=== PATIENT | male | born 1940 | race Caucasian/White ===

== ENCOUNTER 2017-11-15 13:40 | Inpatient (IN) ==
[2017-11-15] MEDS ORDERED: 0.9 % Sodium Chloride 1,000 ML IVC SCH (14:15)
--- NOTE | 2017-11-15 14:23 | Podiatry History & Physical ---
History of Present Illness Chief complaint: Presents to clinic with an open infected diabetic foot ulcer dehisced wound HPI: Mr. Lagunas is a 77 year old male presents today with a dehisced wound on the lateral aspect of his right foot. Necrosis to bone. Cultures revealed MRSA streptococcus and Klebsiella. Patient was initially placed on oral antibiotics as an outpatient. Wound does not respond. Because of his multiple comorbidities and the depths and amount of necrosis the patient will need formal debridement and placement of wound VAC appropriate antibiotics intravenously and long-term wound care post discharge. He will likely need use of wound VAC until we can obtain granular tissue prior to possible grafting if necessary. Patient are both informed of present diagnosis All Systems Reviewed: A 10-system review of systems was performed and is negative for pertinent findings except as documented above in the HPI. Past Med Surg Social Fam HX - Past Medical History Medical history: arthritis, cancer, CHF, coronary artery disease, diabetes, GERD , hyperlipidemia, hypertension, myocardial infarction, RA Psychiatric history: no psych history - Past Surgical History Surgical History: angioplasty/stent, cancer surgery, orthopedic, other, prostatectomy, other - Social History Smoking Status: Never smoker Smokeless Tobacco Status: No Alcohol use: none Drug use: none Medications and Allergies Aspirin [Lo-Dose Aspirin EC] 81 mg PO DAILY 11/07/17 [History] Atenolol [Tenormin] 25 mg PO DAILY 11/07/17 [History] Cholecalciferol (D-3) [Vitamin D] 2,000 unit PO DAILY 11/07/17 [History] Escitalopram [Lexapro] 10 mg PO DAILY 11/07/17 [History] Furosemide [Lasix] 40 mg PO DAILY 11/07/17 [History] HYDROcodone/Acet 5/325 mg [[place] 5-325 mg] 1 tab PO Q6H PRN 5 Days #30 tab 11/07 [Rx] Isosorbide MONOnitrate (24 HR) [Imdur] 30 mg PO DAILY 11/07/17 [History] Lisinopril-HCTZ 20-12.5 [Prinzide 20-12.5] 1 tab PO DAILY 11/07/17 [History] Multivitamin [One Daily Essential] 1 tab PO DAILY 11/07/17 [History] Nitroglycerin [Nitrostat] 0.4 mg SL Q5M PRN 11/07/17 [History] Potassium Gluconate 99 mg PO DAILY 11/07/17 [History] Ranitidine HCl [Heartburn Relief] 150 mg PO BID 11/07/17 [History] Rosuvastatin Calcium [Rosuvastatin Calcium] 10 mg PO HS 11/07/17 [History] Subcutaneous Insulin Pump [T:Slim] 80 unit MC AD 11/07/17 [History] Ticagrelor [Brilinta] 90 mg PO BID 11/07/17 [History] cephALEXin [Keflex] 500 mg PO QID #40 capsule 11/10/17 [Rx] Doxycycline Hyclate [Doxycycline Hyclate] 100 mg PO BID 11/15/17 [History] Linezolid [Linezolid] 600 mg PO BID 11/15/17 [History] Ondansetron ODT [Zofran ODT] 4 mg SL Q4-6H PRN 11/15/17 [History] 3 Allergy/AdvReac Type Severity Reaction Status Date / Time clopidogrel [From Plavix] Allergy Hives Verified 11/10/17 17:03 Iodinated Contrast- Oral and Allergy Hives Verified 11/10/17 17:03 IV Dye meperidine [From Demerol] Allergy Hives Verified 11/10/17 17:03 shellfish derived Allergy Hives Verified 11/10/17 17:03 Physical Exam - Constitutional General appearance: average body habitus, cooperative - Extremities Exam Additional comments: Homans Homans sign negative - Expanded Lower Extremities Exam Foot/Toe exam: Present: deformity (History of fifth toe amputation healed remote. Wound dehiscence is approximately 4 cm in length 1 cm in width and 1 cm in depth with exposure of the fifth metatarsal with obvious necrosis on the distal aspect of the metatarsal head. No evidence of loculated abscess or active purulent drainage.), erythema (Complete wound dehiscence lateral aspect fifth metatarsal right foot with exposure of distal metatarsal head.), swelling - Neurological Exam Additional comments: Patient was complete loss of protective sensation and epicritic sensation 2 point semination light touch and vibration from toes to tibia bilaterally. - Vascular Capillary Refill: less than 3 seconds Results - Labs Result Diagrams: 11/15/17 14:36 Labs: All other labs normal. - Diagnostic results Ankle/Foot x-ray: pending Assessment and Plan (1) Nonhealing surgical wound Current visit: Yes Status: Acute Assessment: #1 nonhealing surgical wound with complete wound dehiscence wound disruption right foot with exposure of bone #2 multiple comorbidities including diabetes with profound neuropathy Plan: #1 removal sutures today debride wound with sterile technique to obtain true dimensions of the wound #2 recommend admission for intravenous antibiotics and formal debridement #3 discussed risks versus benefits as well as alternatives to surgical intervention versus long-term IV antibiotics. We will admit for formal surgical debridement and placement of wound VAC appropriate antibiotics and deep cultures to determine pathogens present within the wound. Previous cultures include Streptococcus MRSA and Klebsiella. Qualifiers: Encounter type: initial encounter Qualified Code(s): T81.89XA - Other complications of procedures, not elsewhere classified, initial encounter
[2017-11-15 14:47] LABS: Basophils # 0.1 K/mcL (0.0-0.2); Basophils % 0.6 %; Eosinophils # 0.2 K/mcL (0.0-0.6); Eosinophils % 1.7 %; Hematocrit 34.8 % (37.5-50.1); Hemoglobin 11.5 g/dL (12.9-16.9); Immature Granulocytes % 0.5 % (0-4); Lymphocytes # 1.9 K/mcL (0.6-4.6); Lymphocytes % 19.5 %; Mean Corpuscular Hemoglobin 30.5 pg (28.0-33.3); Mean Corpuscular Volume 92.3 fL (83.0-100.0); Mean Platelet Volume 9.9 fL (9.4-12.4); Monocytes # 0.8 K/mcL (0.0-1.3); Monocytes % 7.6 %; Neutrophils # 6.9 K/mcL (1.6-8.9); Platelet Count 383 K/mcL (140-400); Red Blood Count 3.77 M/mcL (4.19-5.50); Red Cell Distribution Width 12.3 % (11.5-14.5); Segmented Neutrophils % 70.1 %
[2017-11-15] MEDS ORDERED: Vancomycin 1,250 MG in D5% in Water 250 ML IVPB ONE (15:00)
[2017-11-15 15:38] LABS: INR 1.4; Prothrombin Time 14.9 Seconds (9.4-12.1)
--- NOTE | 2017-11-15 16:20 | Internal Medicine Consult Note ---
Date of Encounter: 11/16/17 Time of Encounter: 15:02 - Assessment and Plan (1) Osteomyelitis Current Visit: Yes Status: Acute Assessment and plan: Podiatry plans surgery Continue Vanc and Zosyn Wound cultures from 11/07/17 surgery grew out Grp B strep and MRSA Contact precautions Qualifiers: Osteomyelitis type: other acute Osteomyelitis location: foot Laterality: right Qualified Code(s): M86.171 - Other acute osteomyelitis, right ankle and foot (2) CAD (coronary artery disease) Current Visit: No Status: Chronic Assessment and plan: Continue home medications: AntiPTL, BB, statin Qualifiers: Coronary Disease-Associated Artery/Lesion type: [place] artery [place] vs. transplanted heart: [place] heart Associated angina: without angina Qualified Code(s): I25.10 - Atherosclerotic heart disease of [place] coronary artery without angina pectoris (3) Dyslipidemia Current Visit: Yes Status: Chronic Assessment and plan: Continue statin Code(s): E78.5 - Hyperlipidemia, unspecified (4) Essential hypertension Current Visit: Yes Status: Acute Assessment and plan: Continue home medications and add PRN Hydralazine while NPO Internal Medicine - CN: HPI - Data of Consult Consult date: 11/15/17 Requesting Physician: Derick Yao, - Consult Narrative Reason for consult: Medical management History of present illness: 77 yr old diabetic patient admitted with suspected osteomyelitis of the right foot. He had a recent rt. MT bunionectomy and excision of a diabetic ulcer on the right foot. Wound cultures grew out MRSA and GB strep. On 11/10/2017 she waas seen for cellulitis of right foot and given Keflex and sent home. She was admitted by Dr. Yao for surgery on the right foot. The hospitialist service was consulted for medical mgt. His comorbid medical conditions are DM-2 with a personal insulin pump, HTN, RA dyslipidemia, CAD s/p STEMI and subsequent stent placement. Past Med Surg Social Fam HX - Past Medical History Medical history: arthritis, cancer, CHF, coronary artery disease, diabetes, GERD , hyperlipidemia, hypertension, myocardial infarction, RA Psychiatric history: no psych history - Past Surgical History Surgical History: angioplasty/stent, cancer surgery, orthopedic, other, prostatectomy, other - Social History Smoking Status: Never smoker Smokeless Tobacco Status: No Alcohol use: none Drug use: none - Constitutional Constitutional: no chills, no fatigue, no fever(s), no falls, no lethargy, no night sweats - EENT Eyes: no blurry vision, no diplopia, no dry eye Ears: no as per HPI, no ear discharge, no tinnitus - Cardiovascular Cardiovascular ROS IM: no chest pain, no diaphoresis, no dyspnea, no edema, no syncope - Gastrointestinal Gastrointestinal: no abdominal pain, no coffee ground emesis, no cramping, no dyspepsia, no hematemesis, no nausea, no vomiting - Musculoskeletal Musculoskeletal ROS IM: joint swelling, numbness, tingling - Integumentary Integumentary IM: non-healing lesions, skin ulcer, no jaundice - Neurological Neurological ROS: numbness, no dizziness, no focal weakness, no vertigo, no weakness - Psychiatric Psychiatric: no behavioral changes, no confusion, no hallucinations, no homicidal ideation, no mood swings - Hematologic/Lymphatic Hematologic/Lymphatic: no easy bleeding, no easy bruising Internal Medicine - CN: Meds Aspirin [Lo-Dose Aspirin EC] 81 mg PO DAILY 11/07/17 [History] Atenolol [Tenormin] 25 mg PO DAILY 11/07/17 [History] Cholecalciferol (D-3) [Vitamin D] 2,000 unit PO DAILY 11/07/17 [History] Escitalopram [Lexapro] 10 mg PO DAILY 11/07/17 [History] Furosemide [Lasix] 40 mg PO DAILY 11/07/17 [History] HYDROcodone/Acet 5/325 mg [[place] 5-325 mg] 1 tab PO Q6H PRN 5 Days #30 tab 11/07 [Rx] Isosorbide MONOnitrate (24 HR) [Imdur] 30 mg PO DAILY 11/07/17 [History] Lisinopril-HCTZ 20-12.5 [Prinzide 20-12.5] 1 tab PO DAILY 11/07/17 [History] Multivitamin [One Daily Essential] 1 tab PO DAILY 11/07/17 [History] Nitroglycerin [Nitrostat] 0.4 mg SL Q5M PRN 11/07/17 [History] Potassium Gluconate 99 mg PO DAILY 11/07/17 [History] Ranitidine HCl [Heartburn Relief] 150 mg PO BID 11/07/17 [History] Rosuvastatin Calcium [Rosuvastatin Calcium] 10 mg PO HS 11/07/17 [History] Subcutaneous Insulin Pump [T:Slim] 80 unit MC AD 11/07/17 [History] Ticagrelor [Brilinta] 90 mg PO BID 11/07/17 [History] cephALEXin [Keflex] 500 mg PO QID #40 capsule 11/10/17 [Rx] Doxycycline Hyclate [Doxycycline Hyclate] 100 mg PO BID 11/15/17 [History] Linezolid [Linezolid] 600 mg PO BID 11/15/17 [History] Ondansetron ODT [Zofran ODT] 4 mg SL Q4-6H PRN 11/15/17 [History] 3 Allergy/AdvReac Type Severity Reaction Status Date / Time clopidogrel [From Plavix] Allergy Hives Verified 11/10/17 17:03 Iodinated Contrast- Oral and Allergy Hives Verified 11/10/17 17:03 IV Dye meperidine [From Demerol] Allergy Hives Verified 11/10/17 17:03 shellfish derived Allergy Hives Verified 11/10/17 17:03 Internal Medicine - CN: Exam - Constitutional Vitals: Temp Pulse Resp BP Pulse Ox 98 F 68 16 101/68 97 11/15/17 14:18 11/15/17 14:18 11/15/17 14:18 11/15/17 14:18 11/15/17 14:18 General appearance IM: Present: A&O X 3, pleasant, no acute distress - Head Head exam: Present: atraumatic, normocephalic - Expanded Head Exam Head exam expanded IM: Absent: Rosas's sign, general tenderness, raccoon eyes - Eye Eye exam: Present: EOMI, PERRL, conjuntiva pink, sclera anicteric Pupils: Present: PERRL - Cardiovascular Cardiovascular exam IM: Present: RRR, +S1, +S2. Absent: JVD - GI/Abdominal GI/Abdominal exam IM: Present: normal bowel sounds, soft, no peritoneal signs. Absent: diminished bowel sounds, rigid - Neurological Exam Neurological exam: Present: CN II-XII intact, oriented X3, no focal deficits. Absent: motor sensory deficit - Skin Skin exam IM: Present: dry, warm Internal Medicine - CN: Reslt - Labs CBC & Chem 7: 11/15/17 14:36 11/15/17 14:36 Labs: Short CBC 11/15/17 Range/Units 14:36 WBC 9.9 (4.3-11.1) K/mcL Hgb 11.5 L (12.9-16.9) g/dL Hct 34.8 L (37.5-50.1) % Plt Count 383 (140-400) K/mcL Neutrophils # 6.9 (1.6-8.9) K/mcL Consult Discharge Plan - Plan Referrals: Chris Garcia DO [Primary Care Provider] -
[2017-11-15] MEDS ORDERED: Nitroglycerin 0.4 MG TAB.SUBL SL PRN (16:44)
[2017-11-15] MEDS ORDERED: Ondansetron ODT 4 MG TAB.RAPDIS SL PRN (16:44)
[2017-11-15] MEDS ORDERED: [UNRECOGNIZED DRUG - SUPPLY] MC SCH (16:45)
[2017-11-15] MEDS ORDERED: Vancomycin 1,250 MG in D5% in Water 250 ML IVPB SCH (17:00)
[2017-11-15 17:48] LABS: BUN/Creatinine Ratio 21 (6-26); Blood Urea Nitrogen 26 mg/dL (8-23); C-Reactive Protein 61 mg/L (Less than 10); Calcium 9.4 mg/dL (8.6-10.3); Carbon Dioxide 24 mEq/L (23-29); Chloride 104 mEq/L (98-107); Glucose 138 mg/dL (70-105); Osmolality,Calculated 293 (280-300); Potassium 3.9 mEq/L (3.5-5.1); Sodium 138 mEq/L (136-145); eGFR For African Americans > 60 (> 60); eGFR For Non-African Americans 56 (> 60)
[2017-11-15] MEDS ORDERED: Vancomycin 1,500 MG in D5% in Water 250 ML IVPB SCH (19:00)
[2017-11-15] MEDS: Famotidine 20 MG TABLET PO SCH (20:31)
[2017-11-15] MEDS: *HR* Ticagrelor 90 MG TABLET PO SCH (20:31)
[2017-11-15] MEDS: Vancomycin 1,500 MG in D5% in Water 250 ML IVPB SCH (21:08)
[2017-11-15] MEDS: *HR* HYDROcodone/Acet 5/325 mg TABLET PO PRN (22:27)
--- NOTE | 2017-11-16 07:20 | Anesthesia Evaluation PreOp ---
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: Other (Parkinson's) Other Medical History: Diabetes Type II Anesthesia History: No Prior Anesthetic Complications Alcohol Use: none Drug use: none Medications and Allergies Aspirin [Lo-Dose Aspirin EC] 81 mg PO DAILY 11/07/17 [History] Atenolol [Tenormin] 25 mg PO DAILY 11/07/17 [History] Cholecalciferol (D-3) [Vitamin D] 2,000 unit PO DAILY 11/07/17 [History] Escitalopram [Lexapro] 10 mg PO DAILY 11/07/17 [History] Furosemide [Lasix] 40 mg PO DAILY 11/07/17 [History] HYDROcodone/Acet 5/325 mg [[place] 5-325 mg] 1 tab PO Q6H PRN 5 Days #30 tab 11/07 [Rx] Isosorbide MONOnitrate (24 HR) [Imdur] 30 mg PO DAILY 11/07/17 [History] Lisinopril-HCTZ 20-12.5 [Prinzide 20-12.5] 1 tab PO DAILY 11/07/17 [History] Multivitamin [One Daily Essential] 1 tab PO DAILY 11/07/17 [History] Nitroglycerin [Nitrostat] 0.4 mg SL Q5M PRN 11/07/17 [History] Potassium Gluconate 99 mg PO DAILY 11/07/17 [History] Ranitidine HCl [Heartburn Relief] 150 mg PO BID 11/07/17 [History] Rosuvastatin Calcium [Rosuvastatin Calcium] 10 mg PO HS 11/07/17 [History] Subcutaneous Insulin Pump [T:Slim] 80 unit MC AD 11/07/17 [History] Ticagrelor [Brilinta] 90 mg PO BID 11/07/17 [History] cephALEXin [Keflex] 500 mg PO QID #40 capsule 11/10/17 [Rx] Doxycycline Hyclate [Doxycycline Hyclate] 100 mg PO BID 11/15/17 [History] Linezolid [Linezolid] 600 mg PO BID 11/15/17 [History] Ondansetron ODT [Zofran ODT] 4 mg SL Q4-6H PRN 11/15/17 [History] 3 Allergy/AdvReac Type Severity Reaction Status Date / Time clopidogrel [From Plavix] Allergy Hives Verified 11/10/17 17:03 Iodinated Contrast- Oral and Allergy Hives Verified 11/10/17 17:03 IV Dye meperidine [From Demerol] Allergy Hives Verified 11/10/17 17:03 shellfish derived Allergy Hives Verified 11/10/17 17:03 - Meds/Allergy Pre-op Review Medications Reviewed: Yes Allergies Reviewed: Yes Beta Blockers on Current Med List: Yes (Atenolol today 0900) Anesthesia Results - Labs 11/15/17 14:36 11/15/17 14:36 Laboratory Tests 11/15/17 11/15/17 14:36 14:36 Hgb 11.5 L Hct 34.8 L Plt Count 383 Sodium 138 Potassium 3.9 BUN 26 H Creatinine 1.25 - Imaging EKG: report reviewed (SR) Additional studies: EF 55% from Cath Report Triple Vessel Disease Anesthesia Exam O2 Sat Height 2.08 m Weight 86.183 kg O2 Sat by Pulse Oximetry 96 O2 Sat by Pulse Oximetry 97 O2 Sat by Pulse Oximetry 96 O2 Sat by Pulse Oximetry 98 O2 Sat by Pulse Oximetry 97 Vital Signs Temp Pulse Resp BP Pulse Ox 98 F 68 16 101/68 97 11/15/17 14:18 11/15/17 14:18 11/15/17 14:18 11/15/17 14:18 11/15/17 14:18 Height: 6'10 Weight: 190 lbs NPO (# of Hours): MN Pain Scale: 0 - HEENT Pupil (Motor): Pupils equal, EOMI Mallampati: III Oral Opening: Greater than 3 - [employer] WORKER LOC: Oriented [employer] WORKER Motor: Normal RUE, Normal LUE, Normal RLE, Normal LLE, Normal Face [employer] WORKER Sensory: Normal: RUE, LUE, LLE, Face, Deficit: RLE (Neuropathy) - Cardiac Rhythm: Regular Murmur: None JVD: No Carotid Bruit: No - Pulmonary Breath Sounds: bilateral Clear Respiratory Effort: Symmetrical Anesthesia Assess/Plan ASA Score: 3 (CAD MS HTN DM) Modified [place] Scale for Level of Consciousness: Cooperative, oriented, and tranquil Anesthetic Plan: MAC Monitoring Plan: Standard Monitors Recovery Plan: Other (Discussed MAC, possible GA, agrees to proceed)
[2017-11-16] MEDS ORDERED: Bupivacaine/Clonidine Syringe 1 EACH SYRINGE ONE (07:40)
[2017-11-16] MEDS: *HR* Ticagrelor 90 MG TABLET PO SCH ×2 (07:51→19:50)
[2017-11-16] MEDS: Famotidine 20 MG TABLET PO SCH ×2 (07:52→16:07)
[2017-11-16] MEDS ORDERED: Lidocaine -MPF 2% 2 ML VIAL ONE ×2 (08:50→09:07)
[2017-11-16] MEDS ORDERED: *HR* Propofol 200 MG/20 ML VIAL IVP ONE (08:58)
[2017-11-16] MEDS ORDERED: Cholecalciferol (D-3) 1,000 UNIT TABLET PO SCH (09:00)
[2017-11-16] MEDS ORDERED: Isosorbide MONOnitrate (24 HR) 30 MG TAB.ER.24H PO SCH (09:00)
[2017-11-16] MEDS ORDERED: Multivit/Ca/Min/Fe/FA 1 TAB TABLET PO SCH (09:00)
[2017-11-16] MEDS ORDERED: (Potassium Gluconate [Potassium Gluconate] 99 MG) PO SCH (09:00)
[2017-11-16] MEDS ORDERED: Lisinopril-HCTZ 20-12.5mg TABLET PO SCH (09:00)
[2017-11-16] MEDS ORDERED: Furosemide 40 MG TABLET PO SCH (09:00)
[2017-11-16] MEDS ORDERED: Aspirin Enteric Coated 81 MG Tablet PO SCH (09:00)
--- NOTE | 2017-11-16 09:49 | Orthopedic Operative Note ---
Date of procedure: 11/16/17 Pre-op diagnosis: Osteomyelitis/nonhealing wound ulceration right foot Post-op diagnosis: same Procedure: 11/16/17 09:41 #1: Incision of bone cortex for osteomyelitis #2 debridement of wound #3 application of graft jacket and wound VAC with use of PRP Implants: #1: Graft jacket Anesthesia: MAC, local Local Anesthetics: 0.25% Sensorcaine HCL SubQ (cc) Surgeon: Derick Yao Was there an entry level assistant manager present: No Estimated blood loss (cc): 5 Tourniquet Time (Minutes): 0 Specimen: Metatarsal for culture Condition: stable Disposition: floor Procedure in Detail: 11/16/17 09:43 Detail summary of procedure: Patient brought to surgical suite. A sign in procedure performed. Patient transferred to the surgical table and positioned properly safely securely. Right foot and leg elevated on foam block. Anesthetic timeout taken. No tourniquet used. Right ankle prepped with alcohol 3 times ankle block carried out without difficulty. Right foot prepped and draped in usual sterile manner. Surgical timeout taken. Wound was inspected. Wound of the 6 cm in length 2 cm in width 0.5 cm in depth. Necrotic skin edge. Linear incision was made in the lateral aspect of proximal fifth metatarsal brought distally to the area of dehiscence/wound a fresh skin edge was obtained by incising the tissue 2 mm away from the skin edge on the dorsal/medial aspect of the wound meeting at the distal aspect of the fifth metatarsal and proximal another 1/2 cm distally to the aspect of the distal first metatarsal the plantar lateral incision was also made the same following the edges of the necrotic wound. The incision was also approximate 2 mm away from the necrotic skin edge. These 2 incisions met distally to the fifth metatarsal. All necrotic tissue was then debrided. Bone was bowed. As found to be of abnormal color texture density. A fresh 15 scalpel blade was then used to make a deeper incision proximally over the proximal fifth metatarsal down the bone. Periosteum was reflected and elected with the Milian elevator [place] retractors were used to protect the soft tissue using a TPS sagittal saw the bone was divided at the level of clinically evident healthy bone was of normal color texture density. At the osteotomy was complete was reviewed from lateral to medial distal dorsal to proximal plantar the distal one half of the fifth metatarsal was resected and sent for culture. Remaining tissue was not necrotic. All suspicious nonviable tissue was debrided accordingly with a cup and Metzenbaum. Remainder of the tissue was then debrided with ultrasonic Misonix debrider. The wound was flushed with copious sterile saline again. By no bone chips or debris the proximal wound was reapproximated with 3-0 Prolene without tension. The distal wound was also reapproximated with 3-0 Prolene. The remaining wound could not be closed primarily. The wound was sprayed with PRP and a graft jacket was applied in room anchored with interrupted sutures of 3-0 chromic. That point a wound VAC was applied over Adaptic which was placed over the graft. Wound VAC was found on properly. Patient tolerated the procedure and the anesthesia well. Estimated blood loss was less than 5 mL complications none. Patient will be continued on appropriate intravenous antibiotics. Continue to offload the wound.
[2017-11-16] MEDS: Vancomycin 1,500 MG in D5% in Water 250 ML IVPB SCH ×2 (10:10→22:15)
[2017-11-16] MEDS: *HR* HYDROcodone/Acet 5/325 mg TABLET PO PRN ×2 (10:11→19:49)
[2017-11-16] MEDS ORDERED: Ondansetron ODT 4 MG TAB.RAPDIS SL PRN (10:23)
[2017-11-16] MEDS ORDERED: Vancomycin 1,250 MG in D5% in Water 250 ML IVPB ONE (10:23)
[2017-11-16] MEDS ORDERED: [UNRECOGNIZED DRUG - SUPPLY] MC SCH (10:23)
[2017-11-16] MEDS ORDERED: Nitroglycerin 0.4 MG TAB.SUBL SL PRN (10:23)
[2017-11-16] MEDS ORDERED: 0.9 % Sodium Chloride 1,000 ML IVC SCH (10:23)
--- NOTE | 2017-11-16 11:31 | Anesthesia Evaluation Post Op ---
Date of Encounter: 11/16/17 Time of Encounter: 09:45 - Vital Signs Vital Signs: Vital Signs/O2 Sat/Glucose, Most Current Temp Pulse Resp BP Pulse Ox 11/16/17 10:41 97.7 F 59 15 134/54 100 11/16/17 08:01 96 - Lungs Lungs: Clear Ascult./Percussion - Airway Airway: Non-obstructed - Cardiovascular Regular Rate - Mental Status Mental Status: Alert & Oriented, Answers Appropriately - Pain Pain Scale: 0 - Nausea Vomiting Nausea Vomiting: Not Present - Hydration Hydration: NPO - Discharge PostOp Status: Transfer Patient to floor
[2017-11-16] MEDS ORDERED: D5% in Water 1,000 ML IVC PRN (11:48)
[2017-11-16] MEDS ORDERED: *HR* Dextrose 50 % in Water (Syg) 50 ML SYRINGE IVP PRN (11:48)
[2017-11-16] MEDS ORDERED: Dextrose Gel 15 GM/37.5 ML TUBE PO PRN ×2 (11:48)
--- NOTE | 2017-11-16 11:59 | Internal Med Progress Note ---
Date of Encounter: 11/16/17 Time of Encounter: 11:55 - Assessment and plan (1) Osteomyelitis Current Visit: Yes Status: Acute Assessment and plan: Underwent surgery today with incision and debridement of wound and application of wound VAC. Follow podiatry recommendations. Continue current antibiotics. Follow culture results. Moderate risk for complications. Qualifiers: Osteomyelitis type: other acute Osteomyelitis location: foot Laterality: right Qualified Code(s): M86.171 - Other acute osteomyelitis, right ankle and foot (2) CAD (coronary artery disease) Current Visit: Yes Status: Chronic Assessment and plan: No chest pain at this time. Continue current medications including aspirin, Brillinta, atenolol and Imdur Qualifiers: Coronary Disease-Associated Artery/Lesion type: [place] artery [place] vs. transplanted heart: [place] heart Associated angina: without angina Qualified Code(s): I25.10 - Atherosclerotic heart disease of [place] coronary artery without angina pectoris (3) Diabetes mellitus Current Visit: Yes Status: Chronic Assessment and plan: Patient on sliding scale coverage and monitor blood sugars closely. Diabetes diet Qualifiers: Diabetes mellitus type: type 2 Diabetes mellitus complication status: without complication Diabetes mellitus residential insulin use: with residential use Qualified Code(s): E11.9 - Type 2 diabetes mellitus without complications ; Z79.4 - skilled nursing (current) use of insulin; Z79.4 - skilled nursing (current) use of insulin; Z79.4 - manager intermediate (current) use of insulin; Z79.4 - skilled nursing ( current) use of insulin (4) Dyslipidemia Current Visit: Yes Status: Chronic Assessment and plan: Continue Crestor (5) Essential hypertension Current Visit: Yes Status: Chronic Assessment and plan: Well-controlled. Continue home medications (6) DVT prophylaxis Current Visit: Yes Status: Acute Assessment and plan: Place patient on subcutaneous heparin - Subjective Interval history: Patient is awake and alert. He underwent surgery earlier this morning. Recovering well. Pain is well controlled in his right foot. No new complaints at this time. No chest pain or shortness of breath. - Constitutional Vitals: Temp Pulse Resp BP Pulse Ox 97.7 F 59 15 134/54 100 11/16/17 10:41 11/16/17 10:41 11/16/17 10:41 11/16/17 10:41 11/16/17 10:41 General appearance: Present: A&O X 3, pleasant, no acute distress, answers questions appropriately - Respiratory Respiratory exam: Present: CTAB. Absent: accessory muscle use, rales, rhonchi, wheezes - Cardiovascular Cardiovascular exam: Present: RRR, +S1, +S2. Absent: diastolic murmur, gallop, rubs, systolic murmur - GI/Abdominal GI/Abdominal exam: Present: normal bowel sounds, soft, no peritoneal signs. Absent: distended, tenderness - Extremities Exam Extremities exam: Present: warm, radial pulses palpable and symmetrical. Absent : calf tenderness, cyanotic, pedal edema Additional comments: Right foot currently bandaged. - Neurological Exam Neurological exam: Present: oriented X3, no focal deficits. Absent: facial droop, speech deficit Internal Medicine: Result - Labs CBC & Chem 7: 11/15/17 14:36 11/15/17 14:36 Labs: Short CBC 11/15/17 Range/Units 14:36 WBC 9.9 (4.3-11.1) K/mcL Hgb 11.5 L (12.9-16.9) g/dL Hct 34.8 L (37.5-50.1) % Plt Count 383 (140-400) K/mcL Neutrophils # 6.9 (1.6-8.9) K/mcL BMP 11/15/17 14:36 Sodium 138 Potassium 3.9 Chloride 104 Carbon Dioxide 24 BUN 26 H Creatinine 1.25 Glucose 138 H Calcium 9.4 - ABG Interpretation ABG results: PT/INR, D-dimer PT 14.9 Seconds (9.4-12.1) H 11/15/17 14:36 - Impressions Impressions Foot X-Ray 11/15/17 14:01 IMPRESSION: 1. There is a soft tissue ulceration noted near the 5th metatarsal head, along the plantar and lateral aspect of the right foot. There is no evidence of osteomyelitis at this time. 2. No evidence of an acute fracture. D/ / 11/15/2017 21:45:09 Asa Bowles MD / Frida Mcgraw Interpreting Provider: Asa Bowles MD - VTE Documentation of Mechanical Device: Intermittent pneumatic compression device Consult Discharge Plan - Plan Referrals: Chris Garcia DO [Primary Care Provider] -
[2017-11-16 14:18] LABS: BUN/Creatinine Ratio 17 (6-26); Blood Urea Nitrogen 20 mg/dL (8-23); eGFR For African Americans > 60 (> 60); eGFR For Non-African Americans 58 (> 60)
[2017-11-16] MEDS: *HR* Heparin 5,000 UNIT/ML VIAL SQ SCH (16:07)
[2017-11-16] MEDS: [UNRECOGNIZED DRUG - SUPPLY] MC SCH (16:15)
[2017-11-16] MEDS: Insulin LISPRO 300 UNITS/3 ML VIAL SQ SCH ×2 (16:19→22:47)
[2017-11-17] MEDS: *HR* Heparin 5,000 UNIT/ML VIAL SQ SCH ×2 (04:45→17:37)
[2017-11-17 05:27] LABS: Basophils # 0.1 K/mcL (0.0-0.2); Basophils % 0.8 %; Eosinophils # 0.2 K/mcL (0.0-0.6); Eosinophils % 2.4 %; Hematocrit 30.1 % (37.5-50.1); Hemoglobin 10.1 g/dL (12.9-16.9); Immature Granulocytes % 0.4 % (0-4); Immature Platelets 2.6 % (1.1-6.1); Lymphocytes # 2.3 K/mcL (0.6-4.6); Mean Corpuscular HGB Conc 33.6 g/dL (31.6-35.5); Mean Corpuscular Hemoglobin 30.9 pg (28.0-33.3); Mean Platelet Volume 10.2 fL (9.4-12.4); Monocytes # 0.7 K/mcL (0.0-1.3); Monocytes % 9.3 %; Neutrophils # 4.6 K/mcL (1.6-8.9); Platelet Count 346 K/mcL (140-400); Red Blood Count 3.27 M/mcL (4.19-5.50); Red Cell Distribution Width 12.1 % (11.5-14.5); Segmented Neutrophils % 58.1 %
[2017-11-17] MEDS: Lisinopril-HCTZ 20-12.5mg TABLET PO SCH (07:34)
[2017-11-17] MEDS: Famotidine 20 MG TABLET PO SCH ×2 (07:35→16:52)
[2017-11-17] MEDS: Aspirin Enteric Coated 81 MG Tablet PO SCH (07:35)
[2017-11-17] MEDS: Isosorbide MONOnitrate (24 HR) 30 MG TAB.ER.24H PO SCH (07:35)
[2017-11-17] MEDS: *HR* Ticagrelor 90 MG TABLET PO SCH ×2 (07:35→21:21)
[2017-11-17] MEDS: Cholecalciferol (D-3) 1,000 UNIT TABLET PO SCH (07:35)
[2017-11-17] MEDS: Multivit/Ca/Min/Fe/FA 1 TAB TABLET PO SCH (07:35)
[2017-11-17] MEDS: Furosemide 40 MG TABLET PO SCH (07:35)
[2017-11-17] MEDS: Insulin LISPRO 300 UNITS/3 ML VIAL SQ SCH ×4 (07:39→21:23)
[2017-11-17] MEDS ORDERED: (Potassium Gluconate [Potassium Gluconate] 99 MG) PO SCH (09:00)
[2017-11-17] MEDS: *HR* HYDROcodone/Acet 5/325 mg TABLET PO PRN ×2 (10:22→16:52)
[2017-11-17] MEDS: Vancomycin 1,500 MG in D5% in Water 250 ML IVPB SCH (10:22)
[2017-11-17] MEDS: Insulin DETEMIR 100 UNIT/ML X5UNITS SQ SCH (11:43)
--- NOTE | 2017-11-17 13:47 | Internal Med Progress Note ---
Date of Encounter: 11/17/17 Time of Encounter: 10:35 - Assessment and plan (1) Osteomyelitis Current Visit: Yes Status: Acute Assessment and plan: Patient being treated with IV antibiotics. Will continue treatment. Status post surgery and debridement yesterday. Awaiting culture results. So far no growth. Qualifiers: Osteomyelitis type: other acute Osteomyelitis location: foot Laterality: right Qualified Code(s): M86.171 - Other acute osteomyelitis, right ankle and foot (2) CAD (coronary artery disease) Current Visit: Yes Status: Chronic Assessment and plan: Continue aspirin, Tenormin, statin and brillinta Qualifiers: Coronary Disease-Associated Artery/Lesion type: [place] artery [place] vs. transplanted heart: [place] heart Associated angina: without angina Qualified Code(s): I25.10 - Atherosclerotic heart disease of [place] coronary artery without angina pectoris (3) Diabetes mellitus Current Visit: Yes Status: Chronic Assessment and plan: Blood sugars were elevated yesterday. Much better this morning. We will continue to monitor. If remains persistently elevated, will place patient on long-acting insulin and addition to sliding scale coverage. Patient delivering insulin with his pump. 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 (5) Essential hypertension Current Visit: Yes Status: Chronic Assessment and plan: Well-controlled. (6) DVT prophylaxis Current Visit: Yes Status: Acute Assessment and plan: On subcutaneous heparin - Subjective Interval history: Patient is lying in bed. Appears comfortable. Pain in right foot is well controlled. No new complaints at this time. No chest pain or shortness of breath. - Constitutional Vitals: Temp Pulse Resp BP Pulse Ox 98.7 F 61 16 97/49 98 11/17/17 10:42 11/17/17 10:42 11/17/17 10:42 11/17/17 10:42 11/17/17 10:42 General appearance: Present: A&O X 3, pleasant, no acute distress, answers questions appropriately - Neck Neck exam general surgery: Present: supple, trachea midline. Absent: lymphadenopathy - Respiratory Respiratory exam: Present: CTAB. Absent: accessory muscle use, rales, rhonchi, wheezes - Cardiovascular Cardiovascular exam: Present: RRR, +S1, +S2. Absent: diastolic murmur, gallop, rubs, systolic murmur - GI/Abdominal GI/Abdominal exam: Present: normal bowel sounds, soft, no peritoneal signs. Absent: distended, tenderness - Extremities Exam Extremities exam: Present: warm, radial pulses palpable and symmetrical. Absent : calf tenderness, cyanotic, pedal edema Additional comments: Right foot bandaged with wound VAC in place. - Neurological Exam Neurological exam: Present: alert, CN II-XII intact, no focal deficits. Absent : facial droop, speech deficit - Skin Skin exam: Present: dry, intact Internal Medicine: Result - Labs CBC & Chem 7: 11/17/17 04:40 11/16/17 13:50 Labs: Short CBC 11/17/17 Range/Units 04:40 WBC 7.9 (4.3-11.1) K/mcL Hgb 10.1 L (12.9-16.9) g/dL Hct 30.1 L (37.5-50.1) % Plt Count 346 (140-400) K/mcL Neutrophils # 4.6 (1.6-8.9) K/mcL BMP 11/16/17 13:50 BUN 20 Creatinine 1.20 - ABG Interpretation ABG results: PT/INR, D-dimer PT 14.9 Seconds (9.4-12.1) H 11/15/17 14:36 - VTE Documentation of Mechanical Device: Intermittent pneumatic compression device Consult Discharge Plan - Plan Referrals: Chris Garcia DO [Primary Care Provider] -
[2017-11-17] MEDS: [UNRECOGNIZED DRUG - SUPPLY] MC SCH (16:53)
[2017-11-18] MEDS: *HR* Heparin 5,000 UNIT/ML VIAL SQ SCH ×2 (05:27→18:38)
[2017-11-18 05:50] LABS: Hematocrit 31.2 % (37.5-50.1); Hemoglobin 10.4 g/dL (12.9-16.9)
[2017-11-18 06:11] LABS: BUN/Creatinine Ratio 14 (6-26); Blood Urea Nitrogen 15 mg/dL (8-23); eGFR For African Americans > 60 (> 60); eGFR For Non-African Americans > 60 (> 60)
[2017-11-18] MEDS: *HR* Ticagrelor 90 MG TABLET PO SCH ×2 (08:21→20:46)
[2017-11-18] MEDS: Cholecalciferol (D-3) 1,000 UNIT TABLET PO SCH (08:21)
[2017-11-18] MEDS: Furosemide 40 MG TABLET PO SCH (08:21)
[2017-11-18] MEDS: Aspirin Enteric Coated 81 MG Tablet PO SCH (08:21)
[2017-11-18] MEDS: Lisinopril-HCTZ 20-12.5mg TABLET PO SCH (08:21)
[2017-11-18] MEDS: Isosorbide MONOnitrate (24 HR) 30 MG TAB.ER.24H PO SCH (08:22)
[2017-11-18] MEDS: Multivit/Ca/Min/Fe/FA 1 TAB TABLET PO SCH (08:22)
[2017-11-18] MEDS: Famotidine 20 MG TABLET PO SCH ×2 (08:22→17:18)
[2017-11-18] MEDS: Insulin LISPRO 300 UNITS/3 ML VIAL SQ SCH ×4 (08:28→17:18)
[2017-11-18] MEDS: Insulin DETEMIR 100 UNIT/ML X5UNITS SQ SCH ×2 (09:20→21:00)
[2017-11-18] MEDS ORDERED: Vancomycin 1,750 MG in D5% in Water 500 ML IVPB SCH (11:00)
--- NOTE | 2017-11-18 13:02 | Internal Med Progress Note ---
Date of Encounter: 11/18/17 Time of Encounter: 09:20 - Assessment and plan (1) Osteomyelitis Current Visit: Yes Status: Acute Assessment and plan: Status post-debridement of wound and application of wound VAC. Continue current antibiotics. Wound culture is negative for any bacteria at this time. Follow recommendations from podiatry Qualifiers: Osteomyelitis type: other acute Osteomyelitis location: foot Laterality: right Qualified Code(s): M86.171 - Other acute osteomyelitis, right ankle and foot (2) CAD (coronary artery disease) Current Visit: Yes Status: Chronic Assessment and plan: Continue aspirin, atenolol, Crestor and brillinta Qualifiers: Coronary Disease-Associated Artery/Lesion type: [place] artery [place] vs. transplanted heart: [place] heart Associated angina: without angina Qualified Code(s): I25.10 - Atherosclerotic heart disease of [place] coronary artery without angina pectoris (3) Diabetes mellitus Current Visit: Yes Status: Chronic Assessment and plan: Blood sugars remain elevated. We will increase his Levemir dosage to 10 units twice daily. We will also had additional nutritional coverage. Continue to monitor blood sugars closely. 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 (5) Essential hypertension Current Visit: Yes Status: Chronic Assessment and plan: Controlled. Continue current medications (6) DVT prophylaxis Current Visit: Yes Status: Acute Assessment and plan: On subcutaneous heparin - Subjective Interval history: Patient is awake and alert. No new complaints at this time. Pain in his right foot is well controlled. - Constitutional Vitals: Temp Pulse Resp BP Pulse Ox 98.8 F 62 16 116/61 97 11/18/17 11:33 11/18/17 11:33 11/18/17 11:33 11/18/17 11:33 11/18/17 11:33 General appearance: Present: A&O X 3, pleasant, no acute distress, answers questions appropriately - Neck Neck exam general surgery: Present: supple, trachea midline. Absent: lymphadenopathy - Respiratory Respiratory exam: Present: CTAB. Absent: accessory muscle use, rales, rhonchi, wheezes - Cardiovascular Cardiovascular exam: Present: RRR, +S1, +S2. Absent: diastolic murmur, gallop, rubs, systolic murmur - GI/Abdominal GI/Abdominal exam: Present: normal bowel sounds, soft, no peritoneal signs. Absent: distended, tenderness - Extremities Exam Extremities exam: Present: warm, radial pulses palpable and symmetrical. Absent : calf tenderness, cyanotic, pedal edema Additional comments: Right foot bandaged. Wound VAC in place Internal Medicine: Result - Labs CBC & Chem 7: 11/18/17 05:00 11/18/17 05:00 Labs: Short CBC 11/18/17 Range/Units 05:00 Hgb 10.4 L (12.9-16.9) g/dL Hct 31.2 L (37.5-50.1) % BMP 11/18/17 05:00 BUN 15 Creatinine 1.05 - ABG Interpretation ABG results: PT/INR, D-dimer PT 14.9 Seconds (9.4-12.1) H 11/15/17 14:36 - VTE Documentation of Mechanical Device: Intermittent pneumatic compression device Consult Discharge Plan - Plan Referrals: Chris Garcia DO [Primary Care Provider] -
[2017-11-18] MEDS: *HR* HYDROcodone/Acet 5/325 mg TABLET PO PRN (16:03)
--- NOTE | 2017-11-18 16:12 | Electrocardiograph Report ---
[place] [id number] Test Date: 2017-11-15 Pat Name: Trish Lagunas Department: 114 Room: [facility] Gender: M Counseling Case Manager: : [id number] Requested By: Derick Yao Order Number: [id number] Reading MD: Albino Miles DO Measurements Intervals [place] Rate: 59 P: 266 GA: 102 QRS: 24 QRSD: 89 T: 47 QT: 467 QTc: 466 Interpretive Statements ECTOPIC ATRIAL BRADYCARDIA PROLONGED QT INTERVAL Electronically Signed On 11-18-2017 16:10:45 EST by Albino Miles DO
--- NOTE | 2017-11-18 16:12 | Electrocardiograph Report ---
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
--- NOTE | 2017-11-18 16:40 | Podiatry Progress Note ---
Date of Encounter: 11/18/17 Time of Encounter: 12:30 - Assessment and Plan (1) Diabetes mellitus Current Visit: Yes Status: Chronic Discussed the importance of glucose control to promote wound healing. Hospitalist managing DM. Qualifiers: Diabetes mellitus type: type 2 Diabetes mellitus complication status: with hyperglycemia Diabetes mellitus mcc insulin use: with mcc use Qualified Code(s): E11.65 - Type 2 diabetes mellitus with hyperglycemia; Z79.4 - [facility] (current) use of insulin; Z79.4 - adjunct faculty for medical terminology (current) use of insulin ; Z79.4 - adjunct faculty for medical terminology (current) use of insulin; Z79.4 - adjunct faculty for medical terminology (current) use of insulin (2) Osteomyelitis Current Visit: Yes Status: Acute S/p Incision of bone cortex for osteomyelitis, debridement of wound, application of graft jacket and wound VAC with use of PRP on by Dr. Yao. Intraop cultures from 11/07/17 isolated Strep Agalactiae (Group B), MRSA and a sparse amount of Klebsiella Oxytoca. Currently receiving IV Vancomycin and Zosyn. A febrile, WBC 7.9 on 11/17/17. Plan: PT/OT consult ordered to assess post discharge needs. Protective weight bearing to right foot with post op surgical shoe and walker. Patient will require a wound vac up on discharge, dressing changes every --, changed at bedside today. Prep all surrounding skin and incision line with Allkare barrier wipes and apply tegaderm, apply adaptic to graft jacket prior to application of small black simplace wound vac sponge, connected to 125 mmhg continuous suction. IV Vancomycin and Zosyn will be discontinued upon discharge. Patient will be discharged on oral Doxycycline and Ampicillin. Patient will need to f/u with Dr. Yao in wound care on Saturday. Anticipate discharge tomorrow pending authorization for wound vac with home health care. Qualifiers: Osteomyelitis type: other acute Osteomyelitis location: foot Laterality: right Qualified Code(s): M86.171 - Other acute osteomyelitis, right ankle and foot Subjective Interval history: Patient is s/p for incision of bone cortex for osteomyelitis, debridement of wound, application of graft jacket and wound VAC with use of PRP on by Dr. Yao. Patient is sitting up in bed with spouse and daughter at bedside. Wound vac connected to right foot. No c/o pain currently. Patient denies any fever, chills, n/v, cp or sob. Objective - Vital Signs Vital Signs: Vital Signs Temp Pulse Resp BP Pulse Ox 11/18/17 11:33 98.8 F 62 16 116/61 97 11/18/17 07:47 98.9 F 55 15 155/55 97 11/18/17 01:39 98.5 F 70 16 138/61 95 11/17/17 19:45 98.3 F 61 14 147/71 97 Intake and Output 11/18/17 11/18/17 11/18/17 07:59 15:59 23:59 Intake Total 1100 / 1100 700 / 700 Output Total 225 / 225 Balance 1100 / 1100 475 / 475 Intake: IV Fluids 1100 / 1100 100 / 100 0.9 % Sodium Chloride 1,000 ML 1000 / 1000 @ 100 mls/hr IVC .Q10H MARCY Rx#: [id number] Zosyn 3.375 GM In 0.9 % Sodium 100 / 100 100 / 100 Chloride 100 ML @ 25 mls/hr IVPB Q8H MARCY Rx#:[id number] Oral 600 / 600 Output: Urine 225 / 225 Wound Drainage 0 / 0 Right Dorsal Foot 0 / 0 Right Foot 0 / 0 Right Lateral Foot 0 / 0 Other: Meal Lunch Percent of Meal Consumed 85% Blood Glucose* 302 276 - Exam Exam: General appearance: alert awake oriented X 3. Calm and pleasant, no acute distress.. Vascular: Right foot: Pedal pulses +2/4 DP/PT , No evidence of cyanosis, pallor or rubor, Edema graded at 1+/4, Skin Temperature warm, No calf pain with manual compression. capillary refill time is immediate to digits. Neurologic: Sensation intact with light touch to foot. . Postop Exam: S/P Sutures intact to incision line, graft jacket in place. Light periwound erythema, dried blood observed to edges of graft jacket. No odor, no streaking , no pus. 15 cc of serous drainage observed to canister. Small superficial wound to the dorsum of the right foot. - Lab Result Diagrams: 11/18/17 05:00 11/18/17 05:00 Labs: Abnormal lab results RBC 3.27 M/mcL (4.19-5.50) L 11/17/17 04:40 Hgb 10.4 g/dL (12.9-16.9) L 11/18/17 05:00 Hct 31.2 % (37.5-50.1) L 11/18/17 05:00 ESR 76 mm/hr (0-10) H 11/15/17 14:36 PT 14.9 Seconds (9.4-12.1) H 11/15/17 14:36 Glucose 138 mg/dL (70-105) H 11/15/17 14:36 POC Glucose 276 (58-89) H 11/18/17 11:37 C-Reactive Protein 61 mg/L (Less than 10) H 11/15/17 14:36 Vancomycin Trough 23.6 mcg/mL (10-20) H* 11/17/17 21:30 Microbiology, Last 48 Hours 11/16/17 09:17 Surgical Biopsy Culture - Preliminary Right Foot - VTE Documentation of Mechanical Device: Intermittent pneumatic compression device Consult Discharge Plan - Plan Referrals: Chris Garcia DO [Primary Care Provider] -
[2017-11-18] MEDS ORDERED: Insulin LISPRO 300 UNITS/3 ML VIAL SQ SCH (21:00)
[2017-11-19] MEDS: *HR* Heparin 5,000 UNIT/ML VIAL SQ SCH (04:37)
[2017-11-19] MEDS: Insulin LISPRO 300 UNITS/3 ML VIAL SQ SCH ×4 (08:49→12:22)
[2017-11-19] MEDS: Isosorbide MONOnitrate (24 HR) 30 MG TAB.ER.24H PO SCH (08:50)
[2017-11-19] MEDS: Lisinopril-HCTZ 20-12.5mg TABLET PO SCH (08:50)
[2017-11-19] MEDS: *HR* Ticagrelor 90 MG TABLET PO SCH (08:50)
[2017-11-19] MEDS: Famotidine 20 MG TABLET PO SCH (08:50)
[2017-11-19] MEDS: Furosemide 40 MG TABLET PO SCH (08:50)
[2017-11-19] MEDS: Cholecalciferol (D-3) 1,000 UNIT TABLET PO SCH (08:50)
[2017-11-19] MEDS: Multivit/Ca/Min/Fe/FA 1 TAB TABLET PO SCH (08:50)
[2017-11-19] MEDS: Aspirin Enteric Coated 81 MG Tablet PO SCH (08:50)
[2017-11-19] MEDS: Insulin DETEMIR 100 UNIT/ML X5UNITS SQ SCH (10:47)
[2017-11-19 11:31] LABS: Basophils # 0.1 K/mcL (0.0-0.2); Basophils % 0.5 %; Eosinophils # 0.2 K/mcL (0.0-0.6); Hematocrit 32.8 % (37.5-50.1); Hemoglobin 10.8 g/dL (12.9-16.9); Immature Granulocytes % 0.5 % (0-4); Lymphocytes % 19.1 %; Mean Corpuscular HGB Conc 32.9 g/dL (31.6-35.5); Mean Corpuscular Hemoglobin 30.4 pg (28.0-33.3); Mean Corpuscular Volume 92.4 fL (83.0-100.0); Mean Platelet Volume 10.2 fL (9.4-12.4); Monocytes # 0.5 K/mcL (0.0-1.3); Monocytes % 5.2 %; Neutrophils # 7.5 K/mcL (1.6-8.9); Platelet Count 398 K/mcL (140-400); Red Blood Count 3.55 M/mcL (4.19-5.50); Red Cell Distribution Width 12.3 % (11.5-14.5); Segmented Neutrophils % 72.7 %
[2017-11-19 11:38] LABS: BUN/Creatinine Ratio 12 (6-26); Blood Urea Nitrogen 15 mg/dL (8-23); Carbon Dioxide 27 mEq/L (23-29); Chloride 104 mEq/L (98-107); Glucose 326 mg/dL (70-105); Osmolality,Calculated 295 (280-300); Potassium 3.7 mEq/L (3.5-5.1); Sodium 136 mEq/L (136-145); eGFR For African Americans > 60 (> 60); eGFR For Non-African Americans 56 (> 60)
--- NOTE | 2017-11-19 12:02 | Discharge Summary ---
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; 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 (2) Osteomyelitis Priority: Primary Status: Acute Qualifiers: Osteomyelitis type: other acute Osteomyelitis location: foot Laterality: right Qualified Code(s): M86.171 - Other acute osteomyelitis, right ankle and foot (3) Nonhealing surgical wound Priority: Primary Status: Acute Qualifiers: Encounter type: initial encounter Qualified Code(s): T81.89XA - Other complications of procedures, not elsewhere classified, initial encounter - Discharge Medications Prescriptions: Amoxicillin 500 mg PO Q8HR 10 Days #30 tablet Doxycycline Monohydrate [Mondoxyne Nl] 100 mg PO BID 10 Days #20 capsule Home Medications: Aspirin [Lo-Dose Aspirin EC] 81 mg PO DAILY 11/07/17 [History] Atenolol [Tenormin] 25 mg PO DAILY 11/07/17 [History] Cholecalciferol (D-3) [Vitamin D] 2,000 unit PO DAILY 11/07/17 [History] Escitalopram [Lexapro] 10 mg PO DAILY 11/07/17 [History] Furosemide [Lasix] 40 mg PO DAILY 11/07/17 [History] HYDROcodone/Acet 5/325 mg [[place] 5-325 mg] 1 tab PO Q6H PRN 5 Days #30 tab 11/07 [Rx] Isosorbide MONOnitrate (24 HR) [Imdur] 30 mg PO DAILY 11/07/17 [History] Lisinopril-HCTZ 20-12.5 [Prinzide 20-12.5] 1 tab PO DAILY 11/07/17 [History] Multivitamin [One Daily Essential] 1 tab PO DAILY 11/07/17 [History] Nitroglycerin [Nitrostat] 0.4 mg SL Q5M PRN 11/07/17 [History] Potassium Gluconate 99 mg PO DAILY 11/07/17 [History] Ranitidine HCl [Heartburn Relief] 150 mg PO BID 11/07/17 [History] Rosuvastatin Calcium 10 mg PO HS 11/07/17 [History] Subcutaneous Insulin Pump [T:Slim] 80 unit MC AD 11/07/17 [History] Ticagrelor [Brilinta] 90 mg PO BID 11/07/17 [History] Ondansetron ODT [Zofran ODT] 4 mg SL Q4-6H PRN 11/15/17 [History] Amoxicillin 500 mg PO Q8HR 10 Days #30 tablet 11/19/17 [Rx] Doxycycline Monohydrate [Mondoxyne Nl] 100 mg PO BID 10 Days #20 capsule [Rx] Allergies/Adverse Reactions: 3 Allergy/AdvReac Type Severity Reaction Status Date / Time clopidogrel [From Plavix] Allergy Hives Verified 11/10/17 17:03 Iodinated Contrast- Oral and Allergy Hives Verified 11/10/17 17:03 IV Dye meperidine [From Demerol] Allergy Hives Verified 11/10/17 17:03 shellfish derived Allergy Hives Verified 11/10/17 17:03 Labs on day of discharge: Labs from last 24 hours 11/18/17 11/18/17 11/18/17 20:58 17:07 11:37 POC Glucose 272 H 284 H 276 H Preliminary micro results at discharge 11/16/17 09:17 Surgical Biopsy Culture - Preliminary Right Foot - Impressions ITS Impressions Foot X-Ray 11/15/17 14:01 IMPRESSION: 1. There is a soft tissue ulceration noted near the 5th metatarsal head, along the plantar and lateral aspect of the right foot. There is no evidence of osteomyelitis at this time. 2. No evidence of an acute fracture. D/ / 11/15/2017 21:45:09 Asa Bowles MD / Frida Mcgraw Interpreting Provider: Asa Bowles MD Date of admission: 11/15/17 13:58 Primary care physician: Chris Garcia DO Consults: 11/15/17 14:10 Consult to Hospitalist [CONS] Routine Consulting Provider: Hospitalpreeti Arizmendi Reason for Consult: Diabetes mellitus type 2 with multiple comorbidities Time Notified: 14:15 Call Completed: Yes 11/15/17 18:28 Consult to Invasive Line Access Team [CONS] Routine Reason for Consult: UNABLE TO OBTAIN IV ACCESS Line Type: EPIV 11/16/17 10:23 Consult to Food Preparation Supervisor [CONS] Routine Reason for SW Consult: Wound VAC and home health care 11/18/17 15:24 Consult to Occupational Therapy [CONS] Routine Comment: Evaluate, develop and implement POC Reason for Consult: Protective weight bearing to right foot with walker. Wound vac to right foot. Consult to Physical Therapy [CONS] Routine Comment: Evaluate, develop and implement POC Reason for Consult: Protective weight bearing to right foot with walker. Wound vac to right foot. Discharging clinician: Raghav Dos Santos Anticipated date of discharge: 11/19/17 - Patient Status Disposition: Home Health Service Condition: Fair Functional capacity at discharge: uses cane/walker Overall status at discharge: patient is progressing back to baseline - Discharge Instructions Follow Up With: Derick Dalton [Non-Partnered Physician] - (WOUND CARE CLINIC WILL CALL YOU WITH AN APPOINEMENT FOR 11/27/17.) Chris Garcia DO [Primary Care Provider] - Additional Instructions: 1. Discharge home with wound vac to right foot. 2. Dressing changes every Sat-Sat-Sat by home health. Cleanse right foot with mild soap and water every Sat-Sat-Sat, pat dry, apply Allkare skin barrier prep to all surrounding skin then apply tegaderm to protect surrounding skin. Please apply adaptic to graft jacket prior to applications of small black simplace wound vac sponge. Please apply adaptic to the wound on the dorsal aspect of the right foot with Allevyn. 3. Protective weight bearing to right foot with post op surgical shoe and walker. 4. Follow up with Dr. Yao in wound care on 11/27/17. 5. Resume all home medications. - Diet and Activity Activity: ambulate only with your walker Diet: diabetic diet - Hospital Course Hospital course: Mr. Lagunas is a 77 year old male who was admitted on 11/15/17 for a dehisced surgical wound right foot. Patient has a medical history significant for DM, HTN, anxiety, and depression. Patient was admitted for intravenous antibiotics and surgical debridement of the wound. Hospitalist service was consulted for management of comorbidities. Arterial studies were completed upon admission: Bilateral lower extremities waveform demonstrates normal hemodynamics, Bilateral Ankle Brachial Index is normal. Overall Impression: Arterial hemodynamics are well maintained at rest. Patient was taken to the OR for Incision of bone cortex for osteomyelitis, debridement of wound, application of graft jacket and wound VAC with use of PRP on by Dr. Yao. Intraop cultures from 11/07/17 isolated Strep Agalactiae (Group B), MRSA and sparse amount of Klebsiella Oxytoca, patient was started on IV Vancomycin and Zosyn upon admissions. ESR: 76. PT/OT was consulted and recommended home health care. Patients condition has improved and patient will be discharged to home with oral antibiotics, wound vac with home health care. Patient to f/u with Dr. Yao in wound care on 11/27/17. - Time Spent with Patient Total time spent providing and/or coordinating discharge services: - VTE Documentation of Mechanical Device: Intermittent pneumatic compression device
[2017-11-19 12:12] VITALS: BP 130/58
[2017-11-19] MEDS ORDERED: Aminoglycoside Consult 1 EACH MC ONE (16:54)
--- NOTE | 2017-11-21 12:16 | Physician Discharge Referral ---
Home Health/Hosp Referral Info Attending Provider: Najma Provider in Charge Post Discharge: Other (Najma) - Diagnosis (1) Nonhealing surgical wound Status: Acute (2) Nonhealing surgical wound Priority: Primary Status: Acute - Respiratory Orders Smoking Cessation: Smoking cessation has been advised. For more information, call the [place] Tobacco Quit Line at 3-843-WKAG-NOW. - Dressing/Wound Care Site: Right foot Type of Dressing/Treatments w/Frequency: Apply wound VAC Saturday to right foot. Cover graft with Adaptic prior to applying the VAC sponge. Apply Adaptic to dorsal foot wound as well prior to applying wound VAC. Wound VAC setting 125 mmHg low continuous - Diet/Nutrition Diet/Nutrition Orders: No Added Salt (SAGAR), No Concentrated Sweets - Activity Activity Orders: Up ad sukhi - Services Needed Following services are medically necessary services: [facility]iary Care Orders: #1 change wound VAC Saturday as ordered. Other Treatments: Patient will need wound VAC supplies as well as 4 x 4's and Adaptic Kerlix - Transfer Medications Prescriptions: Amoxicillin 500 mg PO Q8HR 10 Days #30 tablet Doxycycline Monohydrate [Mondoxyne Nl] 100 mg PO BID 10 Days #20 capsule Home Medications: Aspirin [Lo-Dose Aspirin EC] 81 mg PO DAILY 11/07/17 [History] Atenolol [Tenormin] 25 mg PO DAILY 11/07/17 [History] Cholecalciferol (D-3) [Vitamin D] 2,000 unit PO DAILY 11/07/17 [History] Escitalopram [Lexapro] 10 mg PO DAILY 11/07/17 [History] Furosemide [Lasix] 40 mg PO DAILY 11/07/17 [History] HYDROcodone/Acet 5/325 mg [[place] 5-325 mg] 1 tab PO Q6H PRN 5 Days #30 tab 11/07 [Rx] Isosorbide MONOnitrate (24 HR) [Imdur] 30 mg PO DAILY 11/07/17 [History] Lisinopril-HCTZ 20-12.5 [Prinzide 20-12.5] 1 tab PO DAILY 11/07/17 [History] Multivitamin [One Daily Essential] 1 tab PO DAILY 11/07/17 [History] Nitroglycerin [Nitrostat] 0.4 mg SL Q5M PRN 11/07/17 [History] Potassium Gluconate 99 mg PO DAILY 11/07/17 [History] Ranitidine HCl [Heartburn Relief] 150 mg PO BID 11/07/17 [History] Rosuvastatin Calcium 10 mg PO HS 11/07/17 [History] Subcutaneous Insulin Pump [T:Slim] 80 unit MC AD 11/07/17 [History] Ticagrelor [Brilinta] 90 mg PO BID 11/07/17 [History] Ondansetron ODT [Zofran ODT] 4 mg SL Q4-6H PRN 11/15/17 [History] Amoxicillin 500 mg PO Q8HR 10 Days #30 tablet 11/19/17 [Rx] Doxycycline Monohydrate [Mondoxyne Nl] 100 mg PO BID 10 Days #20 capsule [Rx] Allergies/Adverse Reactions: 3 Allergy/AdvReac Type Severity Reaction Status Date / Time clopidogrel [From Plavix] Allergy Hives Verified 11/10/17 17:03 Iodinated Contrast- Oral and Allergy Hives Verified 11/10/17 17:03 IV Dye meperidine [From Demerol] Allergy Hives Verified 11/10/17 17:03 shellfish derived Allergy Hives Verified 11/10/17 17:03 Certification: Further, I certify that my clinical findings support that this patient is homebound (i.e. absences from home require considerable and taxing effort and are for medical reasons or jain services or infrequently or short duration when for other reasons) because: Homebound Reason: Patient requires assistance of a person or device to safely leave home Attestation: My signature below is to certify that this patient is under my care and that I, or nurse practitioner, or a physician's physician assistant surgery working with me, has a face-to -face encounter with this patient.
== END 2017-11-19 16:55 | disposition home health service (06) | DRG 629 ==
LOC: 3NENU → SUATTDRO 13:58 → 3NENU 11-16 10:31
PROVIDERS: ADMIT Podiatrist Foot Surgery; ATTEND Hospitalist

== ENCOUNTER 2018-05-20 14:20 | Inpatient (IN) ==
[2018-05-20] MEDS ORDERED: Piperacillin/Tazobactam 3.375 GM in 0.9 % Sodium Chloride Mini Bag 100 ML IVPB ONE (15:44)
--- NOTE | 2018-05-20 15:49 | Emergency Department Note ---
Disposition Clinical Impression: Diabetic infection of right foot Disposition: Admitted As Inpatient Condition: Good Referrals: Chris Garcia DO [Primary Care Provider] - Forms: ED Satisfaction Letter Time of Disposition: 19:34 General Adult HPI - General Chief complaint: ED Wound/Laceration Stated complaint: "foot wound eval" Time Seen by Provider: 05/20/18 15:29 Source: patient Mode of arrival: ambulatory Limitations: no limitations Nursing Notes Reviewed: Yes Vital Signs Reviewed: Yes - History of Present Illness HPI Narrative: This is a 77-year-old male who comes to emergency department from podiatry, having been sent to podiatry earlier today by his regular doctor. He states he has been "doctoring" his right large toe for at least the last month, with no improvement. At the same time, he denies having been on antibiotics recently. The issue here is infection of the right large toe. He was told by the biodiesel processing technician that the toe will need to be amputated, and was sent to the emergency department for evaluation and admission to the hospital. Pain Scale: 6 - Related Data Home Medications Medication Instructions Recorded Confirmed Aspirin [Lo-Dose Aspirin EC] 81 mg PO DAILY 11/07/17 05/20/18 Atenolol [Tenormin] 25 mg PO DAILY 11/07/17 05/20/18 Cholecalciferol (D-3) [Vitamin D] 2,000 unit PO DAILY 11/07/17 05/20/18 Escitalopram [Lexapro] 10 mg PO DAILY 11/07/17 05/20/18 Furosemide [Lasix] 40 mg PO DAILY 11/07/17 05/20/18 Isosorbide MONOnitrate (24 HR) 30 mg PO DAILY 11/07/17 05/20/18 [Imdur] Lisinopril-HCTZ 20-12.5 [Prinzide 1 tab PO DAILY 11/07/17 05/20/18 20-12.5] Multivitamin [One Daily Essential] 1 tab PO DAILY 11/07/17 05/20/18 Nitroglycerin [Nitrostat] 0.4 mg SL Q5M PRN 11/07/17 05/20/18 Potassium Gluconate 99 mg PO DAILY 11/07/17 05/20/18 Ranitidine HCl [Heartburn Relief] 150 mg PO BID 11/07/17 05/20/18 Subcutaneous Insulin Pump [T:Slim] 80 unit MC AD 11/07/17 05/20/18 Ticagrelor [Brilinta] 90 mg PO BID 11/07/17 05/20/18 Collagenase Oint [Santyl] 1 appl TP BID 05/20/18 05/20/18 Ondansetron ODT [Zofran ODT] 4 mg PO Q4-6H PRN 05/20/18 05/20/18 Rosuvastatin Calcium [Rosuvastatin 10 mg PO HS 05/20/18 05/20/18 Calcium] Allergies Allergy/AdvReac Type Severity Reaction Status Date / Time clopidogrel [From Plavix] Allergy Hives Verified 05/20/18 18:41 Iodinated Contrast- Oral and Allergy Hives Verified 05/20/18 18:41 IV Dye meperidine [From Demerol] Allergy Hives Verified 05/20/18 18:41 shellfish derived Allergy Hives Verified 05/20/18 18:41 All systems ED: reviewed and negative except as stated. Musculoskeletal: Reports: other (The distal right large toe is eroded with purulent drainage. The toe has erythema extending up to the first MTP joint.) Integumentary: Reports: other (Erythema of the entire right large toe.) Past Medical History - Past Medical History Medical history: Reports: arthritis, cancer, CHF, coronary artery disease, diabetes, GERD, hyperlipidemia, hypertension, myocardial infarction, RA Surgical history: Reports: angioplasty/stent, cancer surgery, orthopedic, other , prostatectomy, other Psychiatric history: Reports: no psych history - Social History Smoking Status: Never smoker Smokeless Tobacco Status: No Alcohol use: Reports: none Drug use: Reports: none Physical Exam - General Limitations: no limitations General appearance: alert, in no apparent distress - Head Head exam: atraumatic, normocephalic, normal inspection - Eye Eye exam: Present: normal appearance, PERRL, EOMI - Neck Neck exam: Present: normal inspection, full ROM, trachea midline - Chest Chest inspection: Present: normal inspection, symmetric chest wall rise - Respiratory Respiratory exam: Present: normal lung sounds bilaterally - Cardiovascular Cardiovascular exam: Present: regular rate, normal rhythm, normal heart sounds - Abdominal Exam Abdominal exam: Present: soft, Non-Tender. Absent: tenderness, distention, guarding, rebound, rigidity - Extremities Exam Extremities exam: Present: pedal edema (Of the right lower extremity, 1+ half of the right calf), other (The right large toe is erythematous to the right first MTP joint, and the distal right large toe is eroded, with what appears to be bone exposed.) - Neurological Exam Neurological exam: Present: alert, oriented X3 - Psychiatric Psychiatric exam: Present: normal affect, normal mood - Skin Skin exam: Present: other (Open wound at the end of the right large toe as noted above, erythema of the entire right large toe) Course Course Narrative: This is a 77-year-old male with infection of the right large toe. Vital Signs Temperature 99.7 F H 05/20/18 14:36 Pulse Rate 72 05/20/18 14:36 Respiratory Rate 14 05/20/18 14:36 Blood Pressure 106/53 05/20/18 14:36 O2 Sat by Pulse Oximetry 100 05/20/18 14:36 Temperature 99.2 F 05/20/18 16:50 Pulse Rate 72 05/20/18 15:49 Respiratory Rate 14 05/20/18 15:49 Blood Pressure 106/53 05/20/18 15:49 O2 Sat by Pulse Oximetry 100 05/20/18 15:49 Oxygen Delivery Oxygen Delivery Room Air Medical Decision Making - MDM Narrative Medical decision making narrative: This is a 77-year-old male sent to the emergency department for admission because of unresolved infection in his right great toe with a plan for amputation. I discussed his case with the on-call hospitalist, who accepted him for admission - Lab Data Lab results reviewed: Yes I reviewed the patient's lab results. Lab results narrative: CBC shows leukocytosis of 12.5 with anemia at 9.7 and 29.0 BMP shows BUN elevated at 31 and creatinine elevated at 1.46 Result diagrams: 05/20/18 17:26 05/20/18 17:27 Lab Results 05/20/18 05/20/18 05/20/18 Range/Units 16:08 17:26 17:26 WBC 12.5 H (4.3-11.1) K/mcL RBC 3.09 L (4.19-5.50) M/mcL Hgb 9.7 L (12.9-16.9) g/dL Hct 29.0 L (37.5-50.1) % MCV 93.9 (83.0-100.0) fL MCH 31.4 (28.0-33.3) pg MCHC 33.4 (31.6-35.5) g/dL RDW 12.1 (11.5-14.5) % Plt Count 275 (140-400) K/mcL MPV 9.5 (9.4-12.4) fL Immature Gran % 0.6 (0-4) % Seg Neutrophils % 70.7 % Lymphocytes % 17.3 % Monocytes % 10.8 % Eosinophils % 0.4 % Basophils % 0.2 % Neutrophils # 8.8 (1.6-8.9) K/mcL Lymphocytes # 2.2 (0.6-4.6) K/mcL Monocytes # 1.3 (0.0-1.3) K/mcL Eosinophils # 0.1 (0.0-0.6) K/mcL Basophils # 0.0 (0.0-0.2) K/mcL Sodium (136-145) mEq/L Potassium (3.5-5.1) mEq/L Chloride (98-107) mEq/L Carbon Dioxide (23-29) mEq/L BUN (8-23) mg/dL Creatinine (0.70-1.30) mg/dL Est GFR ( Amer) (> 60) Est GFR (Non-Af Amer) (> 60) BUN/Creatinine Ratio (6-26) Glucose (70-105) mg/dL Calculated Osmolality (280-300) Lactic Acid 2.0 (0.5-2.2) mmol/L Calcium (8.6-10.3) mg/dL Total Bilirubin (0.3-1.0) mg/dL AST (13-39) Units/L ALT (7-52) Units/L Alkaline Phosphatase (34-104) Units/L Serum Total Protein (6.4-8.9) g/dL Albumin (3.5-5.7) g/dL Globulin (2.4-3.5) g/dL Albumin/Globulin Ratio (1.1-2.2) Urine Color Yellow (Yellow) Urine Clarity Clear (Clear) Urine pH 6.0 (5.0-8.0) pH Units Ur Specific [place] 1.014 (1.010-1.025) Urine Protein Negative (Neg-Trace) mg/dL Urine Glucose (UA) Normal (Normal) mg/dL Urine Ketones Negative (Negative) mg/dL Urine Blood Negative (Negative) Urine Nitrite Negative (Negative) Urine Bilirubin Negative (Negative) Urine Urobilinogen Normal (Normal) mg/dL Ur Leukocyte Esterase Negative (Negative) Ur Culture Indicated? NO (NO) 05/20/18 Range/Units 17:27 WBC (4.3-11.1) K/mcL RBC (4.19-5.50) M/mcL Hgb (12.9-16.9) g/dL Hct (37.5-50.1) % MCV (83.0-100.0) fL MCH (28.0-33.3) pg MCHC (31.6-35.5) g/dL RDW (11.5-14.5) % Plt Count (140-400) K/mcL MPV (9.4-12.4) fL Immature Gran % (0-4) % Seg Neutrophils % % Lymphocytes % % Monocytes % % Eosinophils % % Basophils % % Neutrophils # (1.6-8.9) K/mcL Lymphocytes # (0.6-4.6) K/mcL Monocytes # (0.0-1.3) K/mcL Eosinophils # (0.0-0.6) K/mcL Basophils # (0.0-0.2) K/mcL Sodium 136 (136-145) mEq/L Potassium 3.9 (3.5-5.1) mEq/L Chloride 102 (98-107) mEq/L Carbon Dioxide 23 (23-29) mEq/L BUN 31 H (8-23) mg/dL Creatinine 1.46 H (0.70-1.30) mg/dL Est GFR ( Amer) 56 L (> 60) Est GFR (Non-Af Amer) 47 L (> 60) BUN/Creatinine Ratio 21 (6-26) Glucose 71 (70-105) mg/dL Calculated Osmolality 287 (280-300) Lactic Acid (0.5-2.2) mmol/L Calcium 8.9 (8.6-10.3) mg/dL Total Bilirubin 0.6 (0.3-1.0) mg/dL AST 55 H (13-39) Units/L ALT 58 H (7-52) Units/L Alkaline Phosphatase 156 H (34-104) Units/L Serum Total Protein 7.6 (6.4-8.9) g/dL Albumin 3.5 (3.5-5.7) g/dL Globulin 4.1 H (2.4-3.5) g/dL Albumin/Globulin Ratio 0.9 L (1.1-2.2) Urine Color (Yellow) Urine Clarity (Clear) Urine pH (5.0-8.0) pH Units Ur Specific [place] (1.010-1.025) Urine Protein (Neg-Trace) mg/dL Urine Glucose (UA) (Normal) mg/dL Urine Ketones (Negative) mg/dL Urine Blood (Negative) Urine Nitrite (Negative) Urine Bilirubin (Negative) Urine Urobilinogen (Normal) mg/dL Ur Leukocyte Esterase (Negative) Ur Culture Indicated? (NO) - Radiology Data Radiology results reviewed: Yes I reviewed the patient's radiology results. Right foot x-ray shows multiple chronic changes, including degenerative disease of the first MTP and soft tissue injury
[2018-05-20 16:17] LABS: Bilirubin,Urine Negative (Negative); Blood,Urine Negative (Negative); Clarity,Urine Clear (Clear); Color,Urine Yellow (Yellow); Glucose,Urine (UA) Normal (Normal); Ketones,Urine Negative (Negative); Leukocyte Esterase,Urine Negative (Negative); Nitrite,Urine Negative (Negative); Protein,Urine Negative (Neg-Trace); Specific Gravity,Urine 1.014 (1.010-1.025); Urobilinogen,Urine Normal (Normal)
[2018-05-20 17:42] LABS: Basophils % 0.2 %; Eosinophils # 0.1 K/mcL (0.0-0.6); Eosinophils % 0.4 %; Hemoglobin 9.7 g/dL (12.9-16.9); Immature Granulocytes % 0.6 % (0-4); Lymphocytes # 2.2 K/mcL (0.6-4.6); Lymphocytes % 17.3 %; Mean Corpuscular HGB Conc 33.4 g/dL (31.6-35.5); Mean Corpuscular Hemoglobin 31.4 pg (28.0-33.3); Mean Corpuscular Volume 93.9 fL (83.0-100.0); Mean Platelet Volume 9.5 fL (9.4-12.4); Monocytes # 1.3 K/mcL (0.0-1.3); Monocytes % 10.8 %; Neutrophils # 8.8 K/mcL (1.6-8.9); Platelet Count 275 K/mcL (140-400); Red Blood Count 3.09 M/mcL (4.19-5.50); Red Cell Distribution Width 12.1 % (11.5-14.5); Segmented Neutrophils % 70.7 %
[2018-05-20 18:11] LABS: Albumin 3.5 g/dL (3.5-5.7); Albumin/Globulin Ratio 0.9 (1.1-2.2); Bilirubin,Total 0.6 mg/dL (0.3-1.0); Calcium 8.9 mg/dL (8.6-10.3); Globulin 4.1 g/dL (2.4-3.5); Potassium 3.9 mEq/L (3.5-5.1); Total Protein 7.6 g/dL (6.4-8.9)
--- NOTE | 2018-05-20 21:01 | Internal Med History&Physical ---
Date of Encounter: 05/20/18 Time of Encounter: 21:00 Internal Medicine - H&P: HPI Chief complaint: right great toe infection Admitted From: Emergency Dept Plans for Post Hospital Care: Home History of present illness: Mr. Julien is a 77 year old male with past medical history of CAD, type 2 diabetes, CHF, prostate cancer status post prostatectomy, GERD, hyperlipidemia, hypertension, arthritis who presents to emergency department by suggestion of his asbestos cement sheet supervisor due to infection of his right great toe. Patient states that he has noticed erythema, swelling and ulcer on the tip of the toe for the last month. He states he has been using a cream that his asbestos cement sheet supervisor, Dr. Yao, had prescribed him however it has been progressively getting worse. 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 He denies any drainage from the wound but does admit to swelling up to mid foot. He does admit to some symptoms of fevers and chills but has not been measuring them. He also has occasional nausea with vomiting of clear emesis. He states he is compliant with his diabetes and checks his blood sugar regularly and normally runs in the 110s to 120s. He is on insulin pump has been for the last 10 years. He states his postcardiac valve was approximately 2 years ago when he underwent left heart catheterization with stenting. He denies any chest pain during exertion or at rest. No shortness of breath. States he is able to mow the lawn and walk unassisted before his foot bothered him. In the emergency department, vital signs significant for temperature 99.7, otherwise unremarkable. Laboratory results significant for WBC of 12.5, BUN/ creatinine/creatinine of 31/1.46 with a baseline creatinine 1-1.2, AST 55 ALP 58 alkaline phosphatase 156. Foot x-ray was obtained emergency department and shows signs of soft tissue swelling and were unable to exclude gas-forming organisms. Past medical history as above Past surgical history includes right fifth toe amputation secondary to trauma and subsequent infection, prostatectomy, tonsillectomy Past social history: Patient denies alcohol or drug use and is a former smoker quitting approximately 30 years ago. Family history noncontributory Past Med Surg Social Fam HX - Past Medical History Medical history: arthritis, cancer, CHF, coronary artery disease, diabetes, GERD , hyperlipidemia, hypertension, myocardial infarction, RA Additional medical history: PROSTATE CANCER, parkinsons, diverticulosis, hemmorhoids, pulmonary nodule, urinary ED, onychomycosis, paresthesia, seborrheic dermatitis, actinic keratosis, vit D def, basal cell cancer - nose Psychiatric history: no psych history - Past Surgical History Surgical History: angioplasty/stent, cancer surgery, orthopedic, other, prostatectomy, other Additional surgical history: TONSILLECTOMY, COLONOSCOPY, R foot toe amputation, heart stent, hemhorroid, colonoscopy/EGD, R foot sx, anal fissure, heart cath, Mohs sx - BCC left nose - Social History Smoking Status: Never smoker Smokeless Tobacco Status: No Alcohol use: none Drug use: none - Family History Mother Name: sherly julien Family Member Ethnicity: Non- Living Status: Cause of : brain cancer Hx Family Cancer: Yes Internal Medicine - H&P: Meds Aspirin [Lo-Dose Aspirin EC] 81 mg PO DAILY 11/07/17 [History] Atenolol [Tenormin] 25 mg PO DAILY 11/07/17 [History] Cholecalciferol (D-3) [Vitamin D] 2,000 unit PO DAILY 11/07/17 [History] Escitalopram [Lexapro] 10 mg PO DAILY 11/07/17 [History] Furosemide [Lasix] 40 mg PO DAILY 11/07/17 [History] Isosorbide MONOnitrate (24 HR) [Imdur] 30 mg PO DAILY 11/07/17 [History] Lisinopril-HCTZ 20-12.5 [Prinzide 20-12.5] 1 tab PO DAILY 11/07/17 [History] Multivitamin [One Daily Essential] 1 tab PO DAILY 11/07/17 [History] Nitroglycerin [Nitrostat] 0.4 mg SL Q5M PRN 11/07/17 [History] Potassium Gluconate 99 mg PO DAILY 11/07/17 [History] Ranitidine HCl [Heartburn Relief] 150 mg PO BID 11/07/17 [History] Subcutaneous Insulin Pump [T:Slim] 80 unit MC AD 11/07/17 [History] Ticagrelor [Brilinta] 90 mg PO BID 11/07/17 [History] Collagenase Oint [Santyl] 1 appl TP BID 05/20/18 [History] Ondansetron ODT [Zofran ODT] 4 mg PO Q4-6H PRN 05/20/18 [History] Rosuvastatin Calcium [Rosuvastatin Calcium] 10 mg PO HS 05/20/18 [History] 3 Allergy/AdvReac Type Severity Reaction Status Date / Time clopidogrel [From Plavix] Allergy Hives Verified 05/20/18 18:41 Iodinated Contrast- Oral and Allergy Hives Verified 05/20/18 18:41 IV Dye meperidine [From Demerol] Allergy Hives Verified 05/20/18 18:41 shellfish derived Allergy Hives Verified 05/20/18 18:41 All Systems PM: A 10-system review of systems was performed and is negative for pertinent findings except as documented above in the HPI. - Constitutional Constitutional: chills, fever(s), no fatigue, no lethargy, no weight loss - Constitutional Vitals: Temp Pulse Resp BP Pulse Ox 98.7 F 68 20 114/44 98 05/20/18 20:38 05/20/18 20:38 05/20/18 20:38 05/20/18 20:38 05/20/18 20:38 Exam: Gen.: Vitals noted. No acute distress. AAOx3 HEENT: PERRL/EOMI, oropharynx clear, Normocephalic, atraumatic, MMM Cardiac: RRR, no murmur, +S1/S2 Pulmonary: CTA bilaterally, no wheezes, rales or rhonchi, equal chest expansion Abdomen: soft, nontender, BS noted, no guarding, no rebound. Extremities: Right lower extremity with mid pedal edema 2+, right hallux with distal ulceration and necrotic features. No appreciable crepitus. No discharge with palpation of wound. Status post right fifth toe amputation with surgical scar, well-healed Neuro: A&Ox3, moves all extremities, no focal deficits. Chronic bilateral lower extremity distal numbness secondary to peripheral neuropathy Psych: Appropriate mood and behavior Internal Med - H&P Results - Labs CBC & Chem 7: 05/20/18 17:26 05/20/18 17:27 - Assessment and plan (1) Diabetic infection of right foot Current Visit: Yes Status: Acute Assessment and plan: - Distal ulcer of the right hallux - Patient was sent from Dr. Yao, asbestos cement sheet supervisor for possible need for amputation - Failed outpatient treatment of antibiotic cream - Nonseptic on presentation however his WBC is mildly elevated at 12.5, lactic acid 2.3 - Started on vancomycin and Zosyn in the emergency department - Patient states erythema and swelling has improved since antibiotics were started. - Xray in ED shows soft tissue swelling and recommends MRI, however podiatry has previously stated that they may amputate the toe and this will unlikely exchange operator. - Will not draw wound cultures at this time. Previous growth noted to be MRSA ( April 2017), GBS, Klebsiella. Plan - Continue vancomycin and zosyn - Consult to podiatry - NPO midnight - Pain and nausea control (2) Diabetes mellitus Current Visit: Yes Status: Chronic Assessment and plan: - As above - reports good control in 110-120s - A1c of 7.6% on 05/13/18 - On insulin pump at home. Will suspend and give SSI while NPO Qualifiers: Diabetes mellitus type: type 2 Diabetes mellitus snf insulin use: with snf use Diabetes mellitus complication status: with neurologic complications Diabetes mellitus complication detail: with unspecified neuropathy Qualified Code(s): E11.40 - Type 2 diabetes mellitus with diabetic neuropathy, unspecified; Z79.4 - diplomatic interpreter (current) use of insulin (3) CAD (coronary artery disease) Current Visit: Yes Status: Chronic Assessment and plan: - Hx of CAD with [facility] 2 years ago - Stents placed at that time - Denies chest pain with exertion or rest - Able to achieve >4 METS per patient Qualifiers: Coronary Disease-Associated Artery/Lesion type: cheesh-na artery [place] vs. transplanted heart: cheesh-na heart Associated angina: without angina Qualified Code(s): I25.10 - Atherosclerotic heart disease of cheesh-na coronary artery without angina pectoris (4) Dyslipidemia Current Visit: Yes Status: Chronic Assessment and plan: continue statin (5) Essential hypertension Current Visit: Yes Status: Chronic Assessment and plan: - Well controlled at 106/53 on admission - Continue home meds (6) Transaminitis Current Visit: Yes Status: Chronic Assessment and plan: - Appears to be chronic in nautre with mildly elevated LFTS for past 6 months - RUQ US done last week grossly unremarkable - Possibly related to fatty liver. - Consider further workup in future if patient becomes symptomatic or worsens. (7) DVT prophylaxis Current Visit: Yes Status: Acute Assessment and plan: SCDs - Time Spent With Patient Total time spent is greater than 50% in coordination of care (as documented) at patient's floor/unit and/or counseling patient:
[2018-05-20] MEDS ORDERED: Acetaminophen 325 MG TABLET PO PRN (21:48)
[2018-05-20] MEDS ORDERED: Naloxone 0.4 MG/ML INJ IVP PRN (21:48)
[2018-05-20] MEDS ORDERED: *HR* HYDROcodone/Acet 5/325 mg TABLET PO PRN (21:48)
[2018-05-20] MEDS ORDERED: Ondansetron ODT 4 MG TAB.RAPDIS PO PRN (21:50)
[2018-05-20] MEDS ORDERED: Subcutaneous Insulin Pump MC SCH (22:00)
[2018-05-20] MEDS ORDERED: *HR* Dextrose 50 % in Water (Syg) 50 ML SYRINGE IVP PRN (22:38)
[2018-05-20] MEDS ORDERED: D5% in Water 1,000 ML IVC PRN (22:38)
[2018-05-20] MEDS ORDERED: Dextrose Gel 15 GM/37.5 ML TUBE PO PRN ×2 (22:38)
--- NOTE | 2018-05-20 23:31 | Anesthesia Evaluation PreOp ---
<Derick Lopez - Last Filed: 05/20/18 23:29> Date of Encounter: 05/20/18 - Past History Planned Operation: Hallux Amp. Right Foot Cardiac History: Denies any Significant Hx, PA, HTN, Cardiac Stent (2015) Pulmonary History: Former smoker (quit 1979) DAG COATER History: Other (Parkinson's) Other Medical History: Diabetes Type II Anesthesia History: No Prior Anesthetic Complications, Past Anesthesia (Right foot debridement) Alcohol Use: none Drug use: none Medications and Allergies Aspirin [Lo-Dose Aspirin EC] 81 mg PO DAILY 11/07/17 [History] Atenolol [Tenormin] 25 mg PO DAILY 11/07/17 [History] Cholecalciferol (D-3) [Vitamin D] 2,000 unit PO DAILY 11/07/17 [History] Escitalopram [Lexapro] 10 mg PO DAILY 11/07/17 [History] Furosemide [Lasix] 40 mg PO DAILY 11/07/17 [History] Isosorbide MONOnitrate (24 HR) [Imdur] 30 mg PO DAILY 11/07/17 [History] Lisinopril-HCTZ 20-12.5 [Prinzide 20-12.5] 1 tab PO DAILY 11/07/17 [History] Multivitamin [One Daily Essential] 1 tab PO DAILY 11/07/17 [History] Nitroglycerin [Nitrostat] 0.4 mg SL Q5M PRN 11/07/17 [History] Potassium Gluconate 99 mg PO DAILY 11/07/17 [History] Ranitidine HCl [Heartburn Relief] 150 mg PO BID 11/07/17 [History] Subcutaneous Insulin Pump [T:Slim] 80 unit MC AD 11/07/17 [History] Ticagrelor [Brilinta] 90 mg PO BID 11/07/17 [History] Collagenase Oint [Santyl] 1 appl TP BID 05/20/18 [History] Ondansetron ODT [Zofran ODT] 4 mg PO Q4-6H PRN 05/20/18 [History] Rosuvastatin Calcium [Rosuvastatin Calcium] 10 mg PO HS 05/20/18 [History] 3 Allergy/AdvReac Type Severity Reaction Status Date / Time clopidogrel [From Plavix] Allergy Hives Verified 05/20/18 18:41 Iodinated Contrast- Oral and Allergy Hives Verified 05/20/18 18:41 IV Dye meperidine [From Demerol] Allergy Hives Verified 05/20/18 18:41 shellfish derived Allergy Hives Verified 05/20/18 18:41 - Meds/Allergy Pre-op Review Medications Reviewed: Yes Allergies Reviewed: Yes Beta Blockers on Current Med List: Yes Anesthesia Results - Labs 05/20/18 17:26 05/20/18 17:27 Anesthesia Exam Vital Signs/O2 Sat, Most Current Temp Pulse Resp BP Pulse Ox 98.8 F 61 16 118/57 96 05/20/18 21:25 05/20/18 21:25 05/20/18 21:25 05/20/18 21:25 05/20/18 21:25 - HEENT Pupil (Motor): Pupils equal, EOMI Mallampati: III Teeth: Normal Oral Opening: Greater than 3 - DAG COATER LOC: Oriented DAG COATER Motor: Normal RUE, Normal LUE, Normal RLE, Normal LLE, Normal Face DAG COATER Sensory: Normal: RUE, LUE, RLE, LLE, Face - Cardiac Rhythm: Regular Murmur: None JVD: No Carotid Bruit: No - Pulmonary Breath Sounds: bilateral Clear Respiratory Effort: Symmetrical Anesthesia Assess/Plan ASA Score: 3 Modified [place] Scale for Level of Consciousness: Cooperative, oriented, and tranquil Anesthetic Plan: General Autologous Blood: Yes Monitoring Plan: Standard Monitors Recovery Plan: PACU <Alex Espinal - Last Filed: 05/21/18 12:16> Date of Encounter: 05/21/18 Time of Encounter: 12:15 Anesthesia Results - Labs 05/21/18 03:59 05/21/18 03:59 Anesthesia Exam Selected Entries 05/21/18 11:07 Temperature 98.4 F Pulse Rate 64 Respiratory Rate 18 Blood Pressure 122/55 O2 Sat by Pulse Oximetry 98 Oxygen Delivery Method Room Air Anesthesia Assess/Plan Recovery Plan: PACU (agrees to GA)
[2018-05-20] MEDS: 0.9 % Sodium Chloride 1,000 ML IVC SCH (23:41)
[2018-05-20] MEDS: Piperacillin/Tazobactam 3.375 GM in 0.9 % Sodium Chloride Mini Bag 100 ML IVPB SCH (23:48)
[2018-05-21] MEDS: Insulin LISPRO 300 UNITS/3 ML VIAL SQ SCH ×7 (00:08→20:34)
[2018-05-21 04:25] LABS: Basophils % 0.2 %; Eosinophils # 0.1 K/mcL (0.0-0.6); Eosinophils % 1.1 %; Hematocrit 26.1 % (37.5-50.1); Hemoglobin 8.7 g/dL (12.9-16.9); Immature Granulocytes % 0.4 % (0-4); Lymphocytes # 1.9 K/mcL (0.6-4.6); Lymphocytes % 18.6 %; Mean Corpuscular HGB Conc 33.3 g/dL (31.6-35.5); Mean Corpuscular Hemoglobin 31.2 pg (28.0-33.3); Mean Corpuscular Volume 93.5 fL (83.0-100.0); Mean Platelet Volume 9.7 fL (9.4-12.4); Monocytes # 0.8 K/mcL (0.0-1.3); Monocytes % 8.1 %; Neutrophils # 7.3 K/mcL (1.6-8.9); Platelet Count 238 K/mcL (140-400); Red Blood Count 2.79 M/mcL (4.19-5.50); Red Cell Distribution Width 11.9 % (11.5-14.5); Segmented Neutrophils % 71.6 %
[2018-05-21 04:41] LABS: BUN/Creatinine Ratio 24 (6-26); Blood Urea Nitrogen 30 mg/dL (8-23); Calcium 8.3 mg/dL (8.6-10.3); Carbon Dioxide 25 mEq/L (23-29); Chloride 104 mEq/L (98-107); Glucose 119 mg/dL (70-105); Osmolality,Calculated 289 (280-300); Potassium 3.6 mEq/L (3.5-5.1); Sodium 136 mEq/L (136-145); eGFR For Non-African Americans 56 (> 60)
[2018-05-21] MEDS ORDERED: Bacitracin 50,000 UNIT, Sodium Chloride IRRigation 1,000 ML IR ONE ×2 (06:00→13:27)
[2018-05-21] MEDS ORDERED: Famotidine 20 MG TABLET PO SCH (07:30)
--- NOTE | 2018-05-21 07:35 | Podiatry Consult Note ---
Date of Encounter: 05/21/18 Time of Encounter: 06:00 Assessment and Plan (1) Osteomyelitis Current visit: No Status: Acute Patient of Dr. Yao's with right hallux grade 3 ulceration with osteomyelitis I had a thorough review with the patient and his regarding his condition, my findings, and his treatment options. We discussed the diabetic foot infection present and treatment options antibiotics and surgery. They want to proceed with surgery which would include amputation of the hallux. They understood that he would still have infection present his bacteria are microscopic and he would need antibiotics. Nature and potential complications and consequences, risks versus benefits of a hallux amputation of the right foot was discussed at length. No guarantees were made as to the outcome and he understood that this could be a staged procedure and require future surgery. All questions were answered and informed consent obtained. Qualifiers: Osteomyelitis type: other acute Osteomyelitis location: foot Laterality: right Qualified Code(s): M86.171 - Other acute osteomyelitis, right ankle and foot History of Present Illness HPI: Mr. Julien is a 77 year old diabetic male on anticoagulation who came to see Dr. Yao in the office and was found to have a right foot diabetic foot infection and he asked me to operate on the patient. Patient has osteomyelitis of the right hallux and cellulitis. Patient has had open ulceration and previously seen in the office. Patient was admitted for surgical intervention. Past Med Surg Social Fam HX - Past Medical History Medical history: arthritis, cancer, CHF, coronary artery disease, diabetes, GERD , hyperlipidemia, hypertension, myocardial infarction, RA Additional medical history: PROSTATE CANCER, parkinsons, diverticulosis, hemmorhoids, pulmonary nodule, urinary ED, onychomycosis, paresthesia, seborrheic dermatitis, actinic keratosis, vit D def, basal cell cancer - nose Psychiatric history: no psych history - Past Surgical History Surgical History: angioplasty/stent, cancer surgery, orthopedic, other, prostatectomy, other Additional surgical history: TONSILLECTOMY, COLONOSCOPY, R foot toe amputation, heart stent, hemhorroid, colonoscopy/EGD, R foot sx, anal fissure, heart cath, Mohs sx - BCC left nose - Social History Smoking Status: Never smoker Smokeless Tobacco Status: No Alcohol use: none Drug use: none - Family History Mother Name: sherly julien Family Member Ethnicity: Non- Living Status: Cause of : brain cancer Hx Family Cancer: Yes Medications and Allergies Aspirin [Lo-Dose Aspirin EC] 81 mg PO DAILY 11/07/17 [History] Atenolol [Tenormin] 25 mg PO DAILY 11/07/17 [History] Cholecalciferol (D-3) [Vitamin D] 2,000 unit PO DAILY 11/07/17 [History] Escitalopram [Lexapro] 10 mg PO DAILY 11/07/17 [History] Furosemide [Lasix] 40 mg PO DAILY 11/07/17 [History] Isosorbide MONOnitrate (24 HR) [Imdur] 30 mg PO DAILY 11/07/17 [History] Lisinopril-HCTZ 20-12.5 [Prinzide 20-12.5] 1 tab PO DAILY 11/07/17 [History] Multivitamin [One Daily Essential] 1 tab PO DAILY 11/07/17 [History] Nitroglycerin [Nitrostat] 0.4 mg SL Q5M PRN 11/07/17 [History] Potassium Gluconate 99 mg PO DAILY 11/07/17 [History] Ranitidine HCl [Heartburn Relief] 150 mg PO BID 11/07/17 [History] Subcutaneous Insulin Pump [T:Slim] 80 unit MC AD 11/07/17 [History] Ticagrelor [Brilinta] 90 mg PO BID 11/07/17 [History] Collagenase Oint [Santyl] 1 appl TP BID 05/20/18 [History] Ondansetron ODT [Zofran ODT] 4 mg PO Q4-6H PRN 05/20/18 [History] Rosuvastatin Calcium [Rosuvastatin Calcium] 10 mg PO HS 05/20/18 [History] 3 Allergy/AdvReac Type Severity Reaction Status Date / Time clopidogrel [From Plavix] Allergy Hives Verified 05/20/18 18:41 Iodinated Contrast- Oral and Allergy Hives Verified 05/20/18 18:41 IV Dye meperidine [From Demerol] Allergy Hives Verified 05/20/18 18:41 shellfish derived Allergy Hives Verified 05/20/18 18:41 All Systems Reviewed: The remainder of the systems were reviewed and are negative - Constitutional Constitutional: no fever(s), no weakness - Cardiovascular Cardiovascular: no chest pain, no dyspnea - Respiratory Respiratory: no cough, no dyspnea - Musculoskeletal Musculoskeletal: numbness Physical Exam - Constitutional Vitals: Temp Pulse Resp BP Pulse Ox 98.5 F 65 18 132/59 96 05/21/18 07:08 05/21/18 07:08 05/21/18 07:08 05/21/18 07:08 05/21/18 07:08 General appearance: average body habitus, no acute distress - Head Head exam: Present: atraumatic - ENT ENT exam: Present: mucous membranes moist - Extremities Exam Extremities exam: Present: pedal edema - Ankle & Foot Exam: Patient has ulceration with exposed bone of the right distal hallux. No purulent drainage able to be expressed. There is erythema of the hallux. Ulceration surrounding the exposed bone has a fibrous base with some sloughing tissue. There is increased warmth to the right hallux. There is no fluctuance. Diminished protective sensation. Feet are warm to touch. Results - Labs Result Diagrams: 05/21/18 03:59 05/21/18 03:59 Labs: Abnormal lab results RBC 2.79 M/mcL (4.19-5.50) L 05/21/18 03:59 Hgb 8.7 g/dL (12.9-16.9) L 05/21/18 03:59 Hct 26.1 % (37.5-50.1) L 05/21/18 03:59 ESR >= 130 mm/hr (0-10) H 05/20/18 23:18 BUN 30 mg/dL (8-23) H 05/21/18 03:59 Est GFR (Non-Af Amer) 56 (> 60) L 05/21/18 03:59 Glucose 119 mg/dL (70-105) H 05/21/18 03:59 POC Glucose 118 mg/dL (70-99) H 05/21/18 06:10 Calcium 8.3 mg/dL (8.6-10.3) L 05/21/18 03:59 AST 55 Units/L (13-39) H 05/20/18 17:27 ALT 58 Units/L (7-52) H 05/20/18 17:27 Alkaline Phosphatase 156 Units/L (34-104) H 05/20/18 17:27 C-Reactive Protein 214 mg/L (Less than 10) H 05/20/18 23:18 Globulin 4.1 g/dL (2.4-3.5) H 05/20/18 17:27 Albumin/Globulin Ratio 0.9 (1.1-2.2) L 05/20/18 17:27 H & H 05/21/18 Range/Units 03:59 Hgb 8.7 L (12.9-16.9) g/dL Hct 26.1 L (37.5-50.1) % All other labs normal. Consult Discharge Plan - Plan Referrals: Chris Garcia DO [Primary Care Provider] -
[2018-05-21] MEDS ORDERED: *HR* Ticagrelor 90 MG TABLET PO SCH (09:00)
[2018-05-21] MEDS ORDERED: Isosorbide MONOnitrate (24 HR) 30 MG TAB.ER.24H PO SCH (09:00)
[2018-05-21] MEDS ORDERED: Furosemide 40 MG TABLET PO SCH (09:00)
[2018-05-21] MEDS ORDERED: Lisinopril-HCTZ 20-12.5mg TABLET PO SCH (09:00)
[2018-05-21] MEDS: Piperacillin/Tazobactam 3.375 GM in 0.9 % Sodium Chloride Mini Bag 100 ML IVPB SCH ×2 (09:05→16:20)
[2018-05-21] MEDS: 0.9 % Sodium Chloride 1,000 ML IVC SCH (10:20)
[2018-05-21] MEDS ORDERED: Propofol 500 MG/50 ML INFUS..BTL ONE (10:26)
[2018-05-21] MEDS ORDERED: Lidocaine -MPF 2% 2 ML VIAL ONE (10:26)
[2018-05-21] MEDS ORDERED: Bupivacaine/EPI 1:200k 0.25%PF 10 ML VIAL INFILT ONE (11:00)
[2018-05-21] MEDS ORDERED: Lidocaine 1% 20 ML MDV ONE ×2 (11:00→12:44)
--- NOTE | 2018-05-21 13:12 | Operative Note ---
Date of procedure: 05/21/18 Pre-op diagnosis: right hallux osteomyelitis distal phalanx Post-op diagnosis: same Procedure: amputation of right hallux Implants: none Complications: none Anesthesia: MAC Local Anesthetics: 1% Lidocaine HCL SubQ (cc) Surgeon: Brannon Garcia Was there an assistant unit forester present: No Estimated blood loss (cc): 5 Specimen: right foot bone microbiology and pathology Condition: stable Disposition: PACU Procedure in Detail: Indications: 77-year-old diabetic male with distal phalanx osteomyelitis with diabetic foot ulceration and infection. Patient was brought into the operating room placed on the operating room table in the supine position. The right lower extremity was scrubbed prepped and draped in the usual sterile fashion. 1% lidocaine plain was injected into the patient's right foot. No tourniquet was utilized during the entire procedure. Following procedure then began after the right foot was scrubbed prepped and draped in the usual sterile fashion. right hallux amputation. Attention was directed to the right hallux where the ulceration was present distally and the exposed bone. A fishmouth type incision was made full-thickness on the right hallux and the distal phalanx was disarticulated at the interphalangeal joint. It was noted that the bone was allen in color. The removed bone was also soft. The bone was sent to microbiology and to pathology. With the distal phalanx excised a small amount of devitalized tissue present in the distal soft tissue flap was excised the site was thoroughly flushing upon reinspection no further devitalized tissue was present. The extensor and flexor tendons were cut as far proximal as possible and the site was deemed adequate for closure. There was no purulence expressed her visualized during the procedure. The skin was closed with 3-0 and 2-0 Prolene. Adequate hemostasis was present at the conclusion of the procedure and there was no active bleeding at the time of closure. Postoperative bandaging included Xeroform, 4 x 4 gauze and Kerlix. Patient tolerated the anesthesia and the procedure well and was brought to the recovery room in stable condition. Patient will return to the floor where he will continue antibiotics.
--- NOTE | 2018-05-21 13:13 | Event Note ---
Date of Encounter: 05/21/18 Time of Encounter: 13:00 okay to continue anticoagulation
[2018-05-21] MEDS ORDERED: Dextrose Gel 15 GM/37.5 ML TUBE PO PRN ×2 (13:27)
[2018-05-21] MEDS ORDERED: Ondansetron ODT 4 MG TAB.RAPDIS PO PRN (13:27)
[2018-05-21] MEDS ORDERED: Naloxone 0.4 MG/ML INJ IVP PRN (13:27)
[2018-05-21] MEDS ORDERED: *HR* Dextrose 50 % in Water (Syg) 50 ML SYRINGE IVP PRN (13:27)
[2018-05-21] MEDS ORDERED: D5% in Water 1,000 ML IVC PRN (13:27)
[2018-05-21] MEDS: *HR* HYDROcodone/Acet 5/325 mg TABLET PO PRN ×2 (13:43→20:28)
[2018-05-21] MEDS: Famotidine 20 MG TABLET PO SCH (16:19)
[2018-05-21] MEDS ORDERED: Insulin LISPRO 300 UNITS/3 ML VIAL SQ SCH (18:00)
--- NOTE | 2018-05-21 19:34 | Internal Med Progress Note ---
Hospitalist Progress Note - Encounter Date of Encounter: 05/21/18 Time of Encounter: 17:00 - Subjective Interval History: Patient postop day 0 amputation of right hallux - Exam Vitals: Temp Pulse Resp BP Pulse Ox 97.6 F 67 18 124/67 99 05/21/18 16:05 05/21/18 16:05 05/21/18 16:05 05/21/18 16:05 05/21/18 16:05 Exam: Gen.: Nonacute distress, alert and oriented 3 ENT: Mucosal membranes moist Respiratory: Lungs are clear to auscultation bilaterally without any wheezing rhonchi or rales Cardiovascular: Normal S1 and S2 regular rate rhythm no murmurs rubs or gallops Abdomen: Soft, nontender and nondistended with positive bowel sounds Extremities: No lower extremity edema Skin: Normal color - Assessment and Plan (1) Osteomyelitis Current Visit: No Status: Acute Assessment and Plan: Podiatry consulted with recommendation for amputation of right hallux due to grade 3 ulceration with osteomyelitis Will continue IV vancomycin and IV Zosyn (2) Diabetes mellitus Current Visit: Yes Status: Chronic Assessment and Plan: On insulin pump at home. Will suspend and give SSI while NPO (3) CAD (coronary artery disease) Current Visit: Yes Status: Chronic Assessment and Plan: Stable; continue home meds (4) Dyslipidemia Current Visit: Yes Status: Chronic Assessment and Plan: continue statin (5) Essential hypertension Current Visit: Yes Status: Chronic Assessment and Plan: Continue home meds (6) Transaminitis Current Visit: Yes Status: Chronic Assessment and Plan: Appears to be chronic in nautre with mildly elevated LFTS for past 6 months RUQ US done last week grossly unremarkable Suspect related to fatty liver. (7) DVT prophylaxis Current Visit: Yes Status: Acute Assessment and Plan: SCDs - Time Spent with Patient Total time spent is greater than 50% in coordination of care (as documented) at patient's floor/unit and/or counseling patient: Internal Medicine: Result - Labs CBC & Chem 7: 05/21/18 03:59 05/21/18 03:59 Labs: Short CBC 05/21/18 Range/Units 03:59 WBC 10.1 (4.3-11.1) K/mcL Hgb 8.7 L (12.9-16.9) g/dL Hct 26.1 L (37.5-50.1) % Plt Count 238 (140-400) K/mcL Neutrophils # 7.3 (1.6-8.9) K/mcL BMP 05/21/18 03:59 Sodium 136 Potassium 3.6 Chloride 104 Carbon Dioxide 25 BUN 30 H Creatinine 1.25 Glucose 119 H Calcium 8.3 L - Impressions Impressions Foot X-Ray 05/21/18 16:02 IMPRESSION: Interval resection of the distal phalanx of the great toe. Linear lucency at the base of the 4th metatarsal, not definitely seen previously. This could represent an acute fracture. Correlate with point tenderness. 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 transplanted heart: [place] heart Associated angina: without angina Qualified Code(s): I25.10 - Atherosclerotic heart disease of [place] coronary artery without angina pectoris
[2018-05-21] MEDS: *HR* Ticagrelor 90 MG TABLET PO SCH (20:28)
--- NOTE | 2018-05-21 22:48 | Anesthesia Evaluation Post Op ---
Date of Encounter: 05/21/18 Time of Encounter: 22:48 - Vital Signs Vital Signs: Vital Signs/O2 Sat, Most Current Temp Pulse Resp BP Pulse Ox 98.6 F 68 14 131/68 97 05/21/18 19:51 05/21/18 19:51 05/21/18 19:51 05/21/18 19:51 05/21/18 19:51 - Lungs Lungs: Clear Ascult./Percussion - Airway Airway: Non-obstructed - Cardiovascular Regular Rate - Mental Status Mental Status: Alert & Oriented, Answers Appropriately - Pain Pain Scale: 0 Pain Scale used: Numeric (1 - 10) - Nausea Vomiting Nausea Vomiting: Not Present - Hydration Hydration: Tolerates oral liquids, Has not voided - Discharge PostOp Status: Transfer Patient to floor
[2018-05-22] MEDS: Piperacillin/Tazobactam 3.375 GM in 0.9 % Sodium Chloride Mini Bag 100 ML IVPB SCH ×3 (01:29→16:24)
[2018-05-22] MEDS: Acetaminophen 325 MG TABLET PO PRN ×2 (01:29→11:51)
[2018-05-22] MEDS: Insulin LISPRO 300 UNITS/3 ML VIAL SQ SCH ×4 (08:37→20:33)
[2018-05-22] MEDS: *HR* Ticagrelor 90 MG TABLET PO SCH ×2 (08:54→20:09)
[2018-05-22] MEDS: Furosemide 40 MG TABLET PO SCH (08:54)
[2018-05-22] MEDS: Famotidine 20 MG TABLET PO SCH ×2 (08:54→16:25)
[2018-05-22] MEDS: Isosorbide MONOnitrate (24 HR) 30 MG TAB.ER.24H PO SCH (08:55)
[2018-05-22] MEDS: Lisinopril-HCTZ 20-12.5mg TABLET PO SCH (08:55)
--- NOTE | 2018-05-22 09:34 | Internal Med Progress Note ---
Hospitalist Progress Note - Encounter Date of Encounter: 05/22/18 Time of Encounter: 11:00 - Subjective Interval History: Patient postop day 1 amputation of right hallux Patient with MAXIMUM TEMPERATURE of 100.9 overnight - Exam Vitals: Temp Pulse Resp BP Pulse Ox 99.1 F 72 16 123/44 97 05/22/18 07:11 05/22/18 07:11 05/22/18 07:11 05/22/18 07:11 05/22/18 07:11 Exam: Gen.: Nonacute distress, alert and oriented 3 ENT: Mucosal membranes moist Respiratory: Lungs are clear to auscultation bilaterally without any wheezing rhonchi or rales Cardiovascular: Normal S1 and S2 regular rate rhythm no murmurs rubs or gallops Abdomen: Soft, nontender and nondistended with positive bowel sounds Extremities: No lower extremity edema Skin: Normal colort - Assessment and Plan (1) Osteomyelitis Current Visit: No Status: Acute Assessment and Plan: Podiatry consulted with recommendation for amputation of right hallux due to grade 3 ulceration with osteomyelitis postop day 1 amputation of right hallux Will continue IV vancomycin and IV Zosyn due to low-grade fever overnight Blood cultures pending (2) Diabetes mellitus Current Visit: Yes Status: Chronic Assessment and Plan: On insulin pump at home. Will suspend and give SSI while NPO (3) CAD (coronary artery disease) Current Visit: Yes Status: Chronic Assessment and Plan: Stable; continue home meds (4) Dyslipidemia Current Visit: Yes Status: Chronic Assessment and Plan: continue statin (5) Essential hypertension Current Visit: Yes Status: Chronic Assessment and Plan: Continue home meds (6) Transaminitis Current Visit: Yes Status: Chronic Assessment and Plan: Appears to be chronic in nautre with mildly elevated LFTS for past 6 months RUQ US done last week grossly unremarkable Suspect related to fatty liver. (7) DVT prophylaxis Current Visit: Yes Status: Acute Assessment and Plan: SCDs - Time Spent with Patient Total time spent is greater than 50% in coordination of care (as documented) at patient's floor/unit and/or counseling patient: Internal Medicine: Result - Labs CBC & Chem 7: 05/22/18 11:07 05/22/18 11:07 - Impressions Impressions Foot X-Ray 05/21/18 16:02 IMPRESSION: Interval resection of the distal phalanx of the great toe. Linear lucency at the base of the 4th metatarsal, not definitely seen previously. This could represent an acute fracture. Correlate with point tenderness. 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 transplanted heart: [place] heart Associated angina: without angina Qualified Code(s): I25.10 - Atherosclerotic heart disease of [place] coronary artery without angina pectoris
[2018-05-22 13:10] LABS: Basophils % 0.2 %; Eosinophils # 0.2 K/mcL (0.0-0.6); Eosinophils % 1.4 %; Hematocrit 27.3 % (37.5-50.1); Hemoglobin 9.1 g/dL (12.9-16.9); Immature Granulocytes % 0.5 % (0-4); Lymphocytes # 1.7 K/mcL (0.6-4.6); Lymphocytes % 15.9 %; Mean Corpuscular HGB Conc 33.3 g/dL (31.6-35.5); Mean Corpuscular Hemoglobin 31.8 pg (28.0-33.3); Mean Corpuscular Volume 95.5 fL (83.0-100.0); Mean Platelet Volume 9.9 fL (9.4-12.4); Monocytes % 9.6 %; Neutrophils # 7.6 K/mcL (1.6-8.9); Platelet Count 270 K/mcL (140-400); Red Blood Count 2.86 M/mcL (4.19-5.50); Segmented Neutrophils % 72.4 %
--- NOTE | 2018-05-22 13:24 | Podiatry Progress Note ---
Date of Encounter: 05/22/18 Time of Encounter: 12:45 - Assessment and Plan (1) Osteomyelitis Current Visit: No Status: Acute -Patient is s/p amputation of right hallux by Dr. Garcia on 05/21/18 for right hallux osteomyelitis distal phalanx. -WBC: 10.4, Temp of 100.9 F last night. -Wound cultures from Podiatry clinic on 05/20/18: prelim- streptococcus agalactiae-Group B -Intraop cultures pending. -Dressing changed at bedside, incision line well approximated with periwound erythema, no streaking, no pus, no odor, small amount of bloody drainage observed to dressing. Plan: -Recommend continuation of IV antibiotics. -Continue to monitor patient due to temperature, blood cultures ordered by Hospitalist. -Continue post op shoe while out of bed with protective weight bearing. Qualifiers: Osteomyelitis type: other acute Osteomyelitis location: foot Laterality: right Qualified Code(s): M86.171 - Other acute osteomyelitis, right ankle and foot Subjective Interval history: Patient is s/p amputation of right hallux by Dr. Garcia on 05/21/18 for right hallux osteomyelitis distal phalanx. Patient is sitting up in bed with spouse at bedside. Patient denies any pain to the right foot. Dressing intact with strikethrough drainage and post op shoe on. Patient had a temperature of 100.9 last night. Patient denies any chills, n /v. Objective - Vital Signs Vital Signs: Vital Signs Temp Pulse Resp BP Pulse Ox 05/22/18 12:00 99.2 F 68 14 131/67 98 05/22/18 07:11 99.1 F 72 16 123/44 97 05/22/18 05:19 99.1 F 75 16 113/56 93 05/21/18 23:50 100.9 F H 79 14 135/76 94 05/21/18 19:51 98.6 F 68 14 131/68 97 05/21/18 16:05 97.6 F 67 18 124/67 99 05/21/18 13:29 97.7 F 65 16 120/57 100 Intake and Output 05/21/18 05/22/18 05/22/18 23:59 07:59 15:59 Intake Total 640 / 640 100 / 100 360 / 360 Output Total 450 / 450 150 / 150 575 / 575 Balance 190 / 190 -50 / -50 -215 / -215 Intake: IV Fluids 100 / 100 100 / 100 Zosyn 3.375 GM In 0.9 % Sodium 100 / 100 100 / 100 Chloride (Mini-Bag +) 100 ML @ 25 mls/hr IVPB Q8HR [facility] Rx#: [id number] Oral 540 / 540 360 / 360 Output: Urine 450 / 450 150 / 150 575 / 575 Other: Meal Dinner Breakfast Percent of Meal Consumed 100% 90% Stool Size Moderate Stool Consistency loose Blood Glucose* 281 64 161 - Exam Exam: General appearance: alert awake oriented X 3. Calm and pleasant, no acute distress.. Vascular: Right: No evidence of cyanosis, pallor or rubor, Edema graded at 2+/4 , Skin Temperature warm, No calf pain with manual compression. capillary refill time is immediate to digits. Neurologic: Sensation intact with light touch to foot. . Postop Exam: S/P Sutures intact to incision line, no signs of dehiscence with periwound erytehma. No open area, no drainage, no odor, no streaking. Minimal edema. - Lab Result Diagrams: 05/22/18 11:07 05/22/18 11:07 Labs: Abnormal lab results RBC 2.86 M/mcL (4.19-5.50) L 05/22/18 11:07 Hgb 9.1 g/dL (12.9-16.9) L 05/22/18 11:07 Hct 27.3 % (37.5-50.1) L 05/22/18 11:07 ESR >= 130 mm/hr (0-10) H 05/20/18 23:18 BUN 30 mg/dL (8-23) H 05/21/18 03:59 Est GFR (Non-Af Amer) 56 (> 60) L 05/21/18 03:59 Glucose 119 mg/dL (70-105) H 05/21/18 03:59 POC Glucose 141 mg/dL (70-99) H 05/22/18 09:06 Calcium 8.3 mg/dL (8.6-10.3) L 05/21/18 03:59 AST 55 Units/L (13-39) H 05/20/18 17:27 ALT 58 Units/L (7-52) H 05/20/18 17:27 Alkaline Phosphatase 156 Units/L (34-104) H 05/20/18 17:27 C-Reactive Protein 214 mg/L (Less than 10) H 05/20/18 23:18 Globulin 4.1 g/dL (2.4-3.5) H 05/20/18 17:27 Albumin/Globulin Ratio 0.9 (1.1-2.2) L 05/20/18 17:27 Microbiology, Last 48 Hours 05/21/18 Unknown Gram Stain - Final Right Great Toe - VTE Documentation of Mechanical Device: Intermittent pneumatic compression device Consult Discharge Plan - Plan Referrals: Chris Garcia DO [Primary Care Provider] -
[2018-05-22 13:29] LABS: BUN/Creatinine Ratio 18 (6-26); Blood Urea Nitrogen 23 mg/dL (8-23); Calcium 8.3 mg/dL (8.6-10.3); Carbon Dioxide 23 mEq/L (23-29); Chloride 106 mEq/L (98-107); Glucose 173 mg/dL (70-105); Osmolality,Calculated 290 (280-300); Potassium 3.7 mEq/L (3.5-5.1); Sodium 136 mEq/L (136-145); eGFR For Non-African Americans 55 (> 60)
[2018-05-22] MEDS: *HR* HYDROcodone/Acet 5/325 mg TABLET PO PRN (20:09)
[2018-05-23] MEDS: Piperacillin/Tazobactam 3.375 GM in 0.9 % Sodium Chloride Mini Bag 100 ML IVPB SCH ×3 (00:17→16:13)
[2018-05-23] MEDS: 0.9 % Sodium Chloride 1,000 ML IVC SCH ×4 (00:22→08:18)
[2018-05-23 05:38] LABS: Adenovirus F 40/41 PCR Not detected (Not detect); Astrovirus PCR Not detected (Not detect); C.difficile Toxin A/B by PCR Not detected (Not detect); Campylobacter by PCR DETECTED (Not detect); Cryptosporidium by PCR Not detected (Not detect); Cyclospora cayetanensis PCR Not detected (Not detect); E. coli O157 by PCR Not detected (Not detect); Entamoeba histolytica PCR Not detected (Not detect); Enteroaggregative E.coli(EAEC) Not detected (Not detect); Enteropathogenic E.coli(EPEC) Not detected (Not detect); Enterotoxigenic E.coli (ETEC) Not detected (Not detect); Giardia lamblia PCR Not detected (Not detect); Norovirus GI/GII PCR Not detected (Not detect); Plesiomonas shigelloides PCR Not detected (Not detect); Rotavirus A PCR Not detected (Not detect); Salmonella PCR Not detected (Not detect); Sapovirus PCR Not detected (Not detect); Shig/EnteroinvasiveE coli EIEC Not detected (Not detect); Shigalike tox-prod E coli STEC Not detected (Not detect); Vibrio PCR Not detected (Not detect); Vibrio cholerae PCR Not detected (Not detect); Yersinia enterocolitica PCR Not detected (Not detect)
[2018-05-23] MEDS: Insulin LISPRO 300 UNITS/3 ML VIAL SQ SCH ×4 (08:18→21:03)
[2018-05-23] MEDS: Famotidine 20 MG TABLET PO SCH ×2 (08:26→16:12)
[2018-05-23] MEDS: *HR* Ticagrelor 90 MG TABLET PO SCH ×2 (08:26→21:01)
[2018-05-23] MEDS: Isosorbide MONOnitrate (24 HR) 30 MG TAB.ER.24H PO SCH (08:26)
[2018-05-23] MEDS: Lisinopril-HCTZ 20-12.5mg TABLET PO SCH (08:26)
[2018-05-23] MEDS: Furosemide 40 MG TABLET PO SCH (08:26)
[2018-05-23 10:27] LABS: Basophils % 0.3 %; Eosinophils # 0.3 K/mcL (0.0-0.6); Eosinophils % 3.1 %; Hematocrit 25.6 % (37.5-50.1); Hemoglobin 8.6 g/dL (12.9-16.9); Immature Granulocytes % 0.9 % (0-4); Lymphocytes # 1.6 K/mcL (0.6-4.6); Lymphocytes % 18.3 %; Mean Corpuscular HGB Conc 33.6 g/dL (31.6-35.5); Mean Corpuscular Hemoglobin 30.8 pg (28.0-33.3); Mean Corpuscular Volume 91.8 fL (83.0-100.0); Mean Platelet Volume 9.6 fL (9.4-12.4); Monocytes # 0.8 K/mcL (0.0-1.3); Monocytes % 8.5 %; Neutrophils # 6.1 K/mcL (1.6-8.9); Platelet Count 254 K/mcL (140-400); Red Blood Count 2.79 M/mcL (4.19-5.50); Red Cell Distribution Width 12.1 % (11.5-14.5); Segmented Neutrophils % 68.9 %
[2018-05-23 10:44] LABS: BUN/Creatinine Ratio 14 (6-26); Blood Urea Nitrogen 15 mg/dL (8-23); Calcium 8.3 mg/dL (8.6-10.3); Carbon Dioxide 19 mEq/L (23-29); Chloride 108 mEq/L (98-107); Glucose 239 mg/dL (70-105); Osmolality,Calculated 291 (280-300); Potassium 4.2 mEq/L (3.5-5.1); Sodium 136 mEq/L (136-145); eGFR For Non-African Americans > 60 (> 60)
[2018-05-23] MEDS ORDERED: levoFLOXacin 750 MG TABLET PO SCH (12:00)
[2018-05-23] MEDS ORDERED: *HR* Promethazine 25 MG/ML VIAL IVP ONE (12:42)
--- NOTE | 2018-05-23 12:59 | Podiatry Progress Note ---
Date of Encounter: 05/23/18 Time of Encounter: 12:00 - Assessment and Plan (1) Diabetic infection of right foot Current Visit: Yes Status: Acute -Patient is s/p amputation of right hallux by Dr. Garcia on 05/21/18 for right hallux osteomyelitis distal phalanx. -WBC: 8.9, Temp of 99.0 this am -Wound cultures from Podiatry clinic on 05/20/18: prelim- streptococcus agalactiae-Group B -Intraop cultures pending. -Dressing changed at bedside, incision line well approximated with periwound erythema, no streaking, no pus, no odor, small amount of bloody drainage observed to dressing. Slight maceration noted to wound- betadine applied. Plan: - May be discharged when medically stable on oral antibiotics - Recommend Levaquin 750mg daily x10 days and clindamycin 300mg Q8H x10 days -Continue to monitor patient due to temperature, blood cultures ordered by Hospitalist. -Continue post op shoe while out of bed with protective weight bearing. - will need follow up appointment made for 1 week in office with - patient states he has existing appointment for Saturday- please cancel and make later in the week -Patient instructed to call with any fevers, chills, n/v or flu like symptoms- go to ED with any calf pain or SOB Verbalized understanding Subjective Interval history: Patient is s/p amputation of right hallux by Dr. Garcia on 05/21/18 for right hallux osteomyelitis distal phalanx. Patient is sitting up in chair. Patient denies any pain to the right foot. Dressing intact and post operative shoe on. Temp today 99.0. Patient denies any chills, n/v. Patient denies any calf pain or sob. Objective - Vital Signs Vital Signs: Vital Signs Temp Pulse Resp BP Pulse Ox 05/23/18 10:36 99.0 F 64 18 133/65 98 05/23/18 08:41 95 05/23/18 06:32 99.4 F 73 18 134/61 95 05/22/18 23:38 99.3 F 71 14 121/58 95 05/22/18 20:33 99.5 F 73 16 162/63 99 Intake and Output 05/22/18 05/23/18 05/23/18 23:59 07:59 15:59 Intake Total 460 / 460 100 / 100 240 / 240 Output Total 200 / 200 300 / 300 400 / 400 Balance 260 / 260 -200 / -200 -160 / -160 Intake: IV Fluids 100 / 100 100 / 100 Zosyn 3.375 GM In 0.9 % Sodium 100 / 100 100 / 100 Chloride (Mini-Bag +) 100 ML @ 25 mls/hr IVPB Q8HR [facility] Rx#: [id number] Oral 360 / 360 240 / 240 Output: Urine 200 / 200 300 / 300 400 / 400 Other: Meal Dinner Breakfast Percent of Meal Consumed 100% 100% Blood Glucose* 138 58 163 - Exam Exam: General appearance: alert awake oriented X 3. Calm and pleasant, no acute distress.. Vascular: Right: No evidence of cyanosis, pallor or rubor, Edema graded at 2+/4 , Skin Temperature warm, No calf pain with manual compression. capillary refill time is immediate to digits. Neurologic: Sensation intact with light touch to foot. . Postop Exam: S/P Sutures intact to incision line, no signs of dehiscence. periwound erytehma and edema noted. No open area, no drainage, no odor, no streaking. There remains to be edema noted to mid tibial area without notice of ascending cellulitis. - Lab Result Diagrams: 05/23/18 10:15 05/23/18 10:15 Labs: Abnormal lab results RBC 2.79 M/mcL (4.19-5.50) L 05/23/18 10:15 Hgb 8.6 g/dL (12.9-16.9) L 05/23/18 10:15 Hct 25.6 % (37.5-50.1) L 05/23/18 10:15 ESR >= 130 mm/hr (0-10) H 05/20/18 23:18 Chloride 108 mEq/L (98-107) H 05/23/18 10:15 Carbon Dioxide 19 mEq/L (23-29) L 05/23/18 10:15 Glucose 239 mg/dL (70-105) H 05/23/18 10:15 POC Glucose 138 mg/dL (70-99) H 05/22/18 20:32 Calcium 8.3 mg/dL (8.6-10.3) L 05/23/18 10:15 AST 55 Units/L (13-39) H 05/20/18 17:27 ALT 58 Units/L (7-52) H 05/20/18 17:27 Alkaline Phosphatase 156 Units/L (34-104) H 05/20/18 17:27 C-Reactive Protein 214 mg/L (Less than 10) H 05/20/18 23:18 Globulin 4.1 g/dL (2.4-3.5) H 05/20/18 17:27 Albumin/Globulin Ratio 0.9 (1.1-2.2) L 05/20/18 17:27 Stool Campylobacter PCR DETECTED (Not detect) A* 05/23/18 00:36 Microbiology, Last 48 Hours 05/22/18 13:40 Blood Culture - Preliminary Peripheral Venipuncture Culture is incubating and being continuously monitored for growth. Final report to follow. 05/22/18 13:45 Blood Culture - Preliminary Peripheral Venipuncture Culture is incubating and being continuously monitored for growth. Final report to follow. 05/21/18 Unknown Gram Stain - Final Right Great Toe - VTE Documentation of Mechanical Device: Intermittent pneumatic compression device Consult Discharge Plan - Plan Referrals: Chris Garcia DO [Primary Care Provider] -
[2018-05-23] MEDS: Azithromycin 250 MG TABLET PO SCH (16:12)
--- NOTE | 2018-05-23 17:51 | Internal Med Progress Note ---
Hospitalist Progress Note - Encounter Date of Encounter: 05/23/18 Time of Encounter: 11:00 - Subjective Interval History: Patient postop day 1 amputation of right hallux Patient with MAXIMUM TEMPERATURE of 100.1 this afternoon Suspect secondary to Campylobacter diarrhea; oral antibiotics just started this afternoon - Exam Vitals: Temp Pulse Resp BP Pulse Ox 100.1 F H 73 18 151/66 97 05/23/18 14:49 05/23/18 14:49 05/23/18 14:49 05/23/18 14:49 05/23/18 14:49 Exam: Gen.: Nonacute distress, alert and oriented 3 ENT: Mucosal membranes moist Respiratory: Lungs are clear to auscultation bilaterally without any wheezing rhonchi or rales Cardiovascular: Normal S1 and S2 regular rate rhythm no murmurs rubs or gallops Abdomen: Soft, nontender and nondistended with positive bowel sounds Extremities: No lower extremity edema Skin: Normal colort - Assessment and Plan (1) Osteomyelitis Current Visit: No Status: Acute Assessment and Plan: Podiatry consulted with recommendation for amputation of right hallux due to grade 3 ulceration with osteomyelitis postop day 2 amputation of right hallux Patient with fevers for suspect secondary to Campylobacter diarrhea infection; management as below (2) Campylobacter diarrhea Current Visit: Yes Status: Acute Assessment and Plan: Patient with persistent fevers and found positive for Campylobacter diarrhea Patient started on oral azithromycin this afternoon as he was not able to tolerate Levaquin due to nausea and vomiting after administration. Will continue to monitor (3) Diabetes mellitus Current Visit: Yes Status: Chronic Assessment and Plan: On insulin pump at home. Will suspend and give SSI while NPO (4) CAD (coronary artery disease) Current Visit: Yes Status: Chronic Assessment and Plan: Stable; continue home meds (5) Dyslipidemia Current Visit: Yes Status: Chronic Assessment and Plan: continue statin (6) Essential hypertension Current Visit: Yes Status: Chronic Assessment and Plan: Continue home meds (7) Transaminitis Current Visit: Yes Status: Chronic Assessment and Plan: Appears to be chronic in nautre with mildly elevated LFTS for past 6 months RUQ US done last week grossly unremarkable Suspect related to fatty liver. (8) DVT prophylaxis Current Visit: Yes Status: Acute Assessment and Plan: SCDs - Time Spent with Patient Total time spent is greater than 50% in coordination of care (as documented) at patient's floor/unit and/or counseling patient: Internal Medicine: Result - Labs CBC & Chem 7: 05/23/18 10:15 05/23/18 10:15 Labs: Short CBC 05/23/18 Range/Units 10:15 WBC 8.9 (4.3-11.1) K/mcL Hgb 8.6 L (12.9-16.9) g/dL Hct 25.6 L (37.5-50.1) % Plt Count 254 (140-400) K/mcL Neutrophils # 6.1 (1.6-8.9) K/mcL BMP 05/23/18 10:15 Sodium 136 Potassium 4.2 Chloride 108 H Carbon Dioxide 19 L BUN 15 Creatinine 1.04 Glucose 239 H Calcium 8.3 L - VTE Documentation of Mechanical Device: Intermittent pneumatic compression device Consult Discharge Plan - Plan Referrals: Chris Garcia DO [Primary Care Provider] - (1) Osteomyelitis Qualifiers: Osteomyelitis type: other acute Osteomyelitis location: foot Laterality: right Qualified Code(s): M86.171 - Other acute osteomyelitis, right ankle and foot (3) Diabetes mellitus Qualifiers: Diabetes mellitus type: type 2 Diabetes mellitus prison insulin use: with exterminator helper termite use Diabetes mellitus complication status: with neurologic complications Diabetes mellitus complication detail: with unspecified neuropathy Qualified Code(s): E11.40 - Type 2 diabetes mellitus with diabetic neuropathy, unspecified; Z79.4 - computer terminal operator (current) use of insulin (4) CAD (coronary artery disease) Qualifiers: Coronary Disease-Associated Artery/Lesion type: [place] artery [place] vs. transplanted heart: [place] heart Associated angina: without angina Qualified Code(s): I25.10 - Atherosclerotic heart disease of [place] coronary artery without angina pectoris
[2018-05-23] MEDS: Acetaminophen 325 MG TABLET PO PRN (21:02)
[2018-05-24] MEDS: Insulin LISPRO 300 UNITS/3 ML VIAL SQ SCH ×3 (08:29→16:51)
[2018-05-24] MEDS: *HR* Ticagrelor 90 MG TABLET PO SCH (08:45)
[2018-05-24] MEDS: Azithromycin 250 MG TABLET PO SCH (08:45)
[2018-05-24] MEDS: Isosorbide MONOnitrate (24 HR) 30 MG TAB.ER.24H PO SCH (08:45)
[2018-05-24] MEDS: Famotidine 20 MG TABLET PO SCH ×2 (08:45→16:50)
[2018-05-24] MEDS: Lisinopril-HCTZ 20-12.5mg TABLET PO SCH (08:45)
[2018-05-24] MEDS: Furosemide 40 MG TABLET PO SCH (08:46)
[2018-05-24] MEDS ORDERED: levoFLOXacin 750 MG TABLET PO SCH (09:00)
[2018-05-24 10:34] LABS: Basophils % 0.4 %; Eosinophils # 0.2 K/mcL (0.0-0.6); Eosinophils % 2.3 %; Hematocrit 23.8 % (37.5-50.1); Hemoglobin 7.9 g/dL (12.9-16.9); Immature Granulocytes % 0.4 % (0-4); Lymphocytes # 1.8 K/mcL (0.6-4.6); Lymphocytes % 17.9 %; Mean Corpuscular HGB Conc 33.2 g/dL (31.6-35.5); Mean Corpuscular Hemoglobin 30.6 pg (28.0-33.3); Mean Corpuscular Volume 92.2 fL (83.0-100.0); Mean Platelet Volume 9.2 fL (9.4-12.4); Monocytes # 0.9 K/mcL (0.0-1.3); Monocytes % 8.6 %; Neutrophils # 6.9 K/mcL (1.6-8.9); Platelet Count 260 K/mcL (140-400); Red Blood Count 2.58 M/mcL (4.19-5.50); Red Cell Distribution Width 11.9 % (11.5-14.5); Segmented Neutrophils % 70.4 %
[2018-05-24 10:52] LABS: BUN/Creatinine Ratio 15 (6-26); Blood Urea Nitrogen 16 mg/dL (8-23); Calcium 8.6 mg/dL (8.6-10.3); Carbon Dioxide 25 mEq/L (23-29); Chloride 107 mEq/L (98-107); Glucose 179 mg/dL (70-105); Osmolality,Calculated 292 (280-300); Potassium 3.6 mEq/L (3.5-5.1); Sodium 138 mEq/L (136-145); eGFR For Non-African Americans > 60 (> 60)
[2018-05-24 11:25] VITALS: BP 138/47
[2018-05-24] MEDS: Acetaminophen 325 MG TABLET PO PRN (12:18)
--- NOTE | 2018-05-24 14:04 | Death Note ---
Discharge Sum: Summary - Date and Time Date of admission: 05/21/18 01:15 - Additional Data Attending physician: Pierre Richey Discharge Sum: Prov - Provider Primary care physician: Chris Garcia DO Consults: 05/21/18 16:04 Consult to Occupational Therapy [CONS] Routine Comment: Evaluate, develop and implement POC Reason for Consult: post op ampuation of right great toe, post op surgical shoe Does patient have active BEDREST order?: No Is patient medically & hemodynamically stable?: Yes Patient assessed for mobility or mobilized this visit?: Yes Consult to Physical Therapy [CONS] Routine Comment: Evaluate, develop and implement POC Reason for Consult: post op, ampuation of right great toe, post op surgical shoe Does patient have active BEDREST order?: No Is patient medically & hemodynamically stable?: Yes Patient assessed for mobility or mobilized this visit?: Yes
--- NOTE | 2018-05-24 14:07 | Discharge Summary ---
- NOTES TO OUTPATIENT PROVIDER Notes to Outpatient Provider: none Orders not resulted at time of discharge: Pending orders 05/21/18 Culture,Anaerobic [RM] Routine Culture,Wound [RM] Routine 05/22/18 13:40 Culture,Blood [BC] Routine Date of Encounter: 05/24/18 Time of Encounter: 11:00 - Discharge Diagnosis (1) Osteomyelitis Priority: Primary Status: Acute Qualifiers: Osteomyelitis type: other acute Osteomyelitis location: foot Laterality: right Qualified Code(s): M86.171 - Other acute osteomyelitis, right ankle and foot (2) Campylobacter diarrhea Priority: Primary Status: Acute (3) Diabetes mellitus Priority: Secondary Status: Chronic Qualifiers: Diabetes mellitus type: type 2 Diabetes mellitus lobsterman insulin use: with lobsterman use Diabetes mellitus complication status: with neurologic complications Diabetes mellitus complication detail: with unspecified neuropathy Qualified Code(s): E11.40 - Type 2 diabetes mellitus with diabetic neuropathy, unspecified; Z79.4 - long term care administrator (current) use of insulin (4) CAD (coronary artery disease) Priority: Secondary Status: Chronic Qualifiers: Coronary Disease-Associated Artery/Lesion type: [place] artery [place] vs. 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 During patients hospital stay podiatry was consulted with recommendation for amputation of right hallux due to grade 3 ulceration with osteomyelitis. Patient also developed diarrhea and was diagnosed with Campylobacter bacteria and started on azithromycin. Patient will be discharged to complete her azithromycin in addition to clindamycin per podiatry recommendations. - Time Spent with Patient Total time spent providing and/or coordinating discharge services: - Discharge Medications Prescriptions: Azithromycin [Zithromax] 500 mg PO DAILY #10 tablet Clindamycin [Cleocin] 300 mg PO TID #10 capsule Home Medications: Aspirin [Lo-Dose Aspirin EC] 81 mg PO DAILY 11/07/17 [History] Atenolol [Tenormin] 25 mg PO DAILY 11/07/17 [History] Cholecalciferol (D-3) [Vitamin D] 2,000 unit PO DAILY 11/07/17 [History] Escitalopram [Lexapro] 10 mg PO DAILY 11/07/17 [History] Furosemide [Lasix] 40 mg PO DAILY 11/07/17 [History] Isosorbide MONOnitrate (24 HR) [Imdur] 30 mg PO DAILY 11/07/17 [History] Lisinopril-HCTZ 20-12.5 [Prinzide 20-12.5] 1 tab PO DAILY 11/07/17 [History] Multivitamin [One Daily Essential] 1 tab PO DAILY 11/07/17 [History] Nitroglycerin [Nitrostat] 0.4 mg SL Q5M PRN 11/07/17 [History] Potassium Gluconate 99 mg PO DAILY 11/07/17 [History] Ranitidine HCl [Heartburn Relief] 150 mg PO BID 11/07/17 [History] Subcutaneous Insulin Pump [T:Slim] 80 unit MC AD 11/07/17 [History] Ticagrelor [Brilinta] 90 mg PO BID 11/07/17 [History] Collagenase Oint [Santyl] 1 appl TP BID 05/20/18 [History] Ondansetron ODT [Zofran ODT] 4 mg PO Q4-6H PRN 05/20/18 [History] Rosuvastatin Calcium 10 mg PO HS 05/20/18 [History] Azithromycin [Zithromax] 500 mg PO DAILY #10 tablet 05/24/18 [Rx] Clindamycin [Cleocin] 300 mg PO TID #10 capsule 05/24/18 [Rx] Allergies/Adverse Reactions: 3 Allergy/AdvReac Type Severity Reaction Status Date / Time clopidogrel [From Plavix] Allergy Hives Verified 05/20/18 18:41 Iodinated Contrast- Oral and Allergy Hives Verified 05/20/18 18:41 IV Dye meperidine [From Demerol] Allergy Hives Verified 05/20/18 18:41 shellfish derived Allergy Hives Verified 05/20/18 18:41 Date of admission: 05/21/18 01:15 Primary care physician: Chris Garcia DO Consults: 05/21/18 16:04 Consult to Occupational Therapy [CONS] Routine Comment: Evaluate, develop and implement POC Reason for Consult: post op ampuation of right great toe, post op surgical shoe Does patient have active BEDREST order?: No Is patient medically & hemodynamically stable?: Yes Patient assessed for mobility or mobilized this visit?: Yes Consult to Physical Therapy [CONS] Routine Comment: Evaluate, develop and implement POC Reason for Consult: post op, ampuation of right great toe, post op surgical shoe Does patient have active BEDREST order?: No Is patient medically & hemodynamically stable?: Yes Patient assessed for mobility or mobilized this visit?: Yes - Constitutional Vitals: Temp Pulse Resp BP Pulse Ox 98.8 F 64 14 138/47 98 05/24/18 11:21 05/24/18 11:21 05/24/18 11:21 05/24/18 11:21 05/24/18 11:21 General appearance: Present: A&O X 3 - Cardiovascular Cardiovascular exam: Present: RRR, +S1, +S2. Absent: diastolic murmur, gallop, rubs, systolic murmur - Patient Status Disposition: Home, Self-Care Condition: Good - Discharge Instructions Instructions: Myocardial Infarction (DC), Diabetes Mellitus Type 2 in Adults ( DC), Chronic Hypertension (DC) Follow Up With: Chris Garcia DO [Primary Care Provider] - Additional Instructions: Patient instructed to call with any fevers, chills, n/v or flu like symptoms- go to ED with any calf pain or SOB. Patient instructed to wear post-op shoe while out of bed with protective weight bearing to front of foot. To bear weight on heel. Patient instructed to call podiatry office and change Saturday05/26/18 appointment to later in the week. Change dressing to right great toe every other day, cover with adaptic, 4x4, and kerlex. Follow up with family doctor in 1-2 weeks. - VTE Documentation of Mechanical Device: Intermittent pneumatic compression device
[2018-05-24] MEDS ORDERED: Aminoglycoside Consult 1 EACH MC ONE (17:33)
--- NOTE | 2018-05-26 10:41 | Electrocardiograph Report ---
[address] [address] Test Date: 2018-05-23 Pat Name: Trish Lagunas Department: 114 Room: [facility] Gender: M Supervisor Packing: JJG : [id number] Requested By: Pierre Richey Order Number: [id number] Reading MD: Reji Lucia Measurements Intervals [place] Rate: 74 P: 52 IN: 136 QRS: 28 QRSD: 94 T: 39 QT: 411 QTc: 438 Interpretive Statements SINUS RHYTHM Electronically Signed On 05-26-2018 10:40:03 EDT by Reji Lucia
== END 2018-05-24 17:34 | disposition home or self-care (01) | DRG 504 ==
LOC: 3NENU 14:20 → EMEROOARM 14:20 → 3NENU 21:14 → SUATTDRO 05-21 01:15
PROVIDERS: ADMIT Family Medicine; ATTEND Hospitalist

== ENCOUNTER 2018-07-17 11:53 | Inpatient (IN) ==
[2018-07-17] MEDS ORDERED: 0.9 % Sodium Chloride 1,000 ML IVC ONE (12:28)
[2018-07-17] MEDS ORDERED: Piperacillin/Tazobactam 3.375 GM in Water for inj. (sterile) 20 ML 20 ML IVP ONE (12:28)
--- NOTE | 2018-07-17 12:57 | Emergency Department Note ---
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: without fdc use Qualified Code(s ): E11.621 - Type 2 diabetes mellitus with foot ulcer Disposition: Admitted As Inpatient Condition: Fair Forms: ED Satisfaction Letter Time of Disposition: 15:54 Extremity Problem HPI - General Chief complaint: ED Extremity Problem,Nontraumatic Stated complaint: From Wound Care for Admission Time Seen by Provider: 07/17/18 12:17 Source: patient Mode of arrival: wheelchair Limitations: no limitations Nursing Notes Reviewed: Yes Vital Signs Reviewed: Yes - History of Present Illness HPI Narrative: 77-year-old male presents to the emergency department for a right toe ulcer that has swelling now into the right foot. He was seen in wound care today they want to come to the emergency department to get admitted for IV antibiotics. Patient has not been on any antibiotics approximate 3 weeks after he had part of his right big toe removed by podiatry. Cc had no fevers no generalized weakness. Has no nausea or vomiting. Said he does have mild pain in the right leg upon palpation otherwise nothing else. He is never had any DVTs or any other blood clots. He does take for length and daily aspirin. Otherwise not take any other blood thinners. 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 He does see Dr. Levy for podiatry. They said there is worried him and to take off more the toe if this is worsening. Otherwise no complaints including no headaches, blurry vision, neck pain, back pain, fevers, chills, nausea, vomiting, chest pain, shortness of breath, abdominal pain, changes in bowel movement, pain or tingling down the arms or legs, pain with urination or generalized weakness. Pain Scale: 0 - Related Data Home Medications Medication Instructions Recorded Confirmed Aspirin [Lo-Dose Aspirin EC] 81 mg PO DAILY 11/07/17 07/17/18 Atenolol [Tenormin] 25 mg PO DAILY 11/07/17 07/17/18 Cholecalciferol (D-3) [Vitamin D] 2,000 unit PO DAILY 11/07/17 07/17/18 Escitalopram [Lexapro] 10 mg PO DAILY 11/07/17 07/17/18 Furosemide [Lasix] 40 mg PO DAILY 11/07/17 07/17/18 Isosorbide MONOnitrate (24 HR) 30 mg PO DAILY 11/07/17 07/17/18 [Imdur] Lisinopril-HCTZ 20-12.5 [Prinzide 1 tab PO DAILY 11/07/17 07/17/18 20-12.5] Multivitamin [One Daily Essential] 1 tab PO DAILY 11/07/17 07/17/18 Nitroglycerin [Nitrostat] 0.4 mg SL Q5M PRN 11/07/17 07/17/18 Potassium Gluconate 198 mg PO DAILY 11/07/17 07/17/18 Ranitidine HCl [Heartburn Relief] 150 mg PO BID 11/07/17 07/17/18 Subcutaneous Insulin Pump [T:Slim] 80 unit MC AD 11/07/17 07/17/18 Ticagrelor [Brilinta] 90 mg PO BID 11/07/17 07/17/18 Rosuvastatin Calcium [Crestor] 10 mg PO HS 07/17/18 07/17/18 Allergies Allergy/AdvReac Type Severity Reaction Status Date / Time clopidogrel [From Plavix] Allergy Hives Verified 07/17/18 13:06 Iodinated Contrast- Oral and Allergy Hives Verified 07/17/18 13:06 IV Dye meperidine [From Demerol] Allergy Hives Verified 07/17/18 13:06 shellfish derived Allergy Hives Verified 07/17/18 13:06 All systems ED: reviewed and negative except as stated. Review of Systems: As Per HPI Past Medical History - Past Medical History Attestation: Yes The following information was validated with the patient. Source: patient Medical history: Reports: arthritis, cancer, CHF, coronary artery disease, diabetes, GERD, hyperlipidemia, hypertension, myocardial infarction, RA Surgical history: Reports: angioplasty/stent, cancer surgery, orthopedic, other , prostatectomy, other Psychiatric history: Reports: no psych history - Social History Smoking Status: Never smoker Smokeless Tobacco Status: No Alcohol use: Reports: none Drug use: Reports: none Physical Exam - General Limitations: no limitations General appearance: alert, in no apparent distress - Head Head exam: atraumatic, normocephalic, normal inspection - Eye Eye exam: Present: normal appearance, PERRL, EOMI - ENT ENT exam: normal exam, normal oropharynx, mucous membranes moist - Neck Neck exam: Present: normal inspection, full ROM, trachea midline - Chest Chest inspection: Present: normal inspection, symmetric chest wall rise - Respiratory Respiratory exam: Present: normal lung sounds bilaterally - Cardiovascular Cardiovascular exam: Present: regular rate, normal rhythm, normal heart sounds - Abdominal Exam Abdominal exam: Present: soft, Non-Tender, normal bowel sounds. Absent: tenderness, distention, guarding, rebound, rigidity - Extremities Exam Extremities exam: Present: normal inspection, full ROM. Absent: tenderness, pedal edema - Expanded Lower Extremity Exam Lower leg exam: Present: normal inspection, full ROM, tenderness, swelling, erythema, Homans' sign Ankle exam: Present: normal inspection, full ROM Foot/toe exam: Present: normal inspection, full ROM, tenderness, swelling, erythema, other (Also her on the tip of the right great toe no active bleeding no active crepitus around the area is painful to touch currently covered is just covered by wound care.) - Back Exam Back exam: Present: normal inspection, full ROM. Absent: CVA tenderness (R), CVA tenderness (L) - Neurological Exam Neurological exam: Present: alert, oriented X3 - Skin Skin exam: Present: warm, dry, intact, normal color Course Course Narrative: Will get blood cultures and wound culture of the area we will get CBC, BMP, lactate. We will give patient vancomycin and Zosyn for antibiotics. Patient most likely will be admitted for further evaluation and IV antibiotics. Vital Signs Temperature 98.0 F 07/17/18 12:00 Pulse Rate 63 07/17/18 12:00 Respiratory Rate 18 07/17/18 12:00 Blood Pressure 143/57 07/17/18 12:00 O2 Sat by Pulse Oximetry 100 07/17/18 12:00 Temperature 98.0 F 07/17/18 12:00 Pulse Rate 67 07/17/18 14:48 Respiratory Rate 20 07/17/18 14:48 Blood Pressure 153/67 07/17/18 14:48 O2 Sat by Pulse Oximetry 100 07/17/18 14:48 Oxygen Delivery Oxygen Delivery Room Air Extremity Problem, Nontraumati - MDM Narrative Medical decision making narrative: 77-year-old male presented to the emergency department with infection of the right big toe. He has had part is removed and is being followed by wound care. Dr. Levy his enrollment advisor sent him down here for evaluation. We will get basic labs did not show any white count. X-ray did show possible osteomyelitis that is worsening. We did get blood cultures as well as basic labs which had no acute findings. We started patient on vancomycin and Zosyn. DVT scan of his leg was also done which came back negative. At this time there is no further treatment needed. Patient will be admitted to the hospitalist service. I spoke with Dr. Solis who agreed to admit the patient to their service. I placed podiatry and wound care consult in. Patient admitted in stable condition Foot X-Ray 07/17/18 12:31 IMPRESSION: 1. Findings are consistent with osteomyelitis involving the head of the 1st proximal phalanx, new from prior exam, without soft tissue gas. 2. Prior amputation of the 1st distal phalanx. 3. 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 D/ / 07/17/2018 14:15:56 Juan Frost MD / [facility] Interpreting Provider: Juan Frost MD - Medical Records Medical records reviewed: Yes I reviewed the patient's medical records. - Lab Data Lab results reviewed: Yes I reviewed the patient's lab results. Result diagrams: 07/17/18 12:29 07/17/18 12:29 Lab Results 07/17/18 07/17/18 07/17/18 Range/Units 12:29 12:29 12:29 WBC 10.4 (4.3-11.1) K/mcL RBC 3.57 L (4.19-5.50) M/mcL Hgb 11.0 L (12.9-16.9) g/dL Hct 33.6 L (37.5-50.1) % MCV 94.1 (83.0-100.0) fL MCH 30.8 (28.0-33.3) pg MCHC 32.7 (31.6-35.5) g/dL RDW 13.0 (11.5-14.5) % Plt Count 314 (140-400) K/mcL MPV 9.3 L (9.4-12.4) fL Immature Gran % 0.6 (0-4) % Seg Neutrophils % 63.4 % Lymphocytes % 25.1 % Monocytes % 8.3 % Eosinophils % 2.1 % Basophils % 0.5 % Neutrophils # 6.6 (1.6-8.9) K/mcL Lymphocytes # 2.6 (0.6-4.6) K/mcL Monocytes # 0.9 (0.0-1.3) K/mcL Eosinophils # 0.2 (0.0-0.6) K/mcL Basophils # 0.1 (0.0-0.2) K/mcL PT 13.5 H (9.4-12.1) Seconds INR 1.2 APTT 35.4 (26.0-36.0) Seconds Sodium 138 (136-145) mEq/L Potassium 4.2 (3.5-5.1) mEq/L Chloride 104 (98-107) mEq/L Carbon Dioxide 25 (23-29) mEq/L BUN 30 H (8-23) mg/dL Creatinine 1.20 (0.70-1.30) mg/dL Est GFR ( Amer) > 60 (> 60) Est GFR (Non-Af Amer) 58 L (> 60) BUN/Creatinine Ratio 25 (6-26) Glucose 122 H (70-105) mg/dL Calculated Osmolality 293 (280-300) Lactic Acid (0.5-2.2) mmol/L Calcium 9.6 (8.6-10.3) mg/dL Phosphorus 3.2 (2.7-4.5) mg/dL Magnesium 2.3 (1.6-2.6) mg/dL Total Bilirubin 0.6 (0.3-1.0) mg/dL Direct Bilirubin 0.1 (0.0-0.2) mg/dL Indirect Bilirubin 0.5 (0.0-1.2) mg/dL AST 26 (13-39) Units/L ALT 26 (7-52) Units/L Alkaline Phosphatase 155 H (34-104) Units/L Troponin I < 0.03 (< 0.04) ng/mL Serum Total Protein 8.4 (6.4-8.9) g/dL Albumin 3.9 (3.5-5.7) g/dL Globulin 4.5 H (2.4-3.5) g/dL Albumin/Globulin Ratio 0.9 L (1.1-2.2) Urine Color (Yellow) Urine Clarity (Clear) Urine pH (5.0-8.0) pH Units Ur Specific [place] (1.010-1.025) Urine Protein (Neg-Trace) mg/dL Urine Glucose (UA) (Normal) mg/dL Urine Ketones (Negative) mg/dL Urine Blood (Negative) Urine Nitrite (Negative) Urine Bilirubin (Negative) Urine Urobilinogen (Normal) mg/dL Ur Leukocyte Esterase (Negative) Ur Culture Indicated? (NO) 07/17/18 07/17/18 Range/Units 12:47 13:07 WBC (4.3-11.1) K/mcL RBC (4.19-5.50) M/mcL Hgb (12.9-16.9) g/dL Hct (37.5-50.1) % MCV (83.0-100.0) fL MCH (28.0-33.3) pg MCHC (31.6-35.5) g/dL RDW (11.5-14.5) % Plt Count (140-400) K/mcL MPV (9.4-12.4) fL Immature Gran % (0-4) % Seg Neutrophils % % Lymphocytes % % Monocytes % % Eosinophils % % Basophils % % Neutrophils # (1.6-8.9) K/mcL Lymphocytes # (0.6-4.6) K/mcL Monocytes # (0.0-1.3) K/mcL Eosinophils # (0.0-0.6) K/mcL Basophils # (0.0-0.2) K/mcL PT (9.4-12.1) Seconds INR APTT (26.0-36.0) Seconds Sodium (136-145) mEq/L Potassium (3.5-5.1) mEq/L Chloride (98-107) mEq/L Carbon Dioxide (23-29) mEq/L BUN (8-23) mg/dL Creatinine (0.70-1.30) mg/dL Est GFR ( Amer) (> 60) Est GFR (Non-Af Amer) (> 60) BUN/Creatinine Ratio (6-26) Glucose (70-105) mg/dL Calculated Osmolality (280-300) Lactic Acid 1.4 (0.5-2.2) mmol/L Calcium (8.6-10.3) mg/dL Phosphorus (2.7-4.5) mg/dL Magnesium (1.6-2.6) mg/dL Total Bilirubin (0.3-1.0) mg/dL Direct Bilirubin (0.0-0.2) mg/dL Indirect Bilirubin (0.0-1.2) mg/dL AST (13-39) Units/L ALT (7-52) Units/L Alkaline Phosphatase (34-104) Units/L Troponin I (< 0.04) ng/mL Serum Total Protein (6.4-8.9) g/dL Albumin (3.5-5.7) g/dL Globulin (2.4-3.5) g/dL Albumin/Globulin Ratio (1.1-2.2) Urine Color Yellow (Yellow) Urine Clarity Clear (Clear) Urine pH 7.0 (5.0-8.0) pH Units Ur Specific [place] > 1.030 H (1.010-1.025) Urine Protein Negative (Neg-Trace) mg/dL Urine Glucose (UA) Normal (Normal) mg/dL Urine Ketones Negative (Negative) mg/dL Urine Blood Negative (Negative) Urine Nitrite Negative (Negative) Urine Bilirubin Negative (Negative) Urine Urobilinogen Normal (Normal) mg/dL Ur Leukocyte Esterase Negative (Negative) Ur Culture Indicated? NO (NO) - Radiology Data Radiology results reviewed: Yes I reviewed the patient's radiology results. - EKG Data EKG attestation: Yes I reviewed and interpreted this EKG. EKG results narrative: EKG done at 1250 review myself and attending shows sinus rhythm at a rate of 61 , PA interval 173, QRS 95, QTC 454. There is no acute ST changes no acute T- wave changes no other signs of ischemia. Patient does have peaked T waves in leads V2 through V4. No other changes. No heart strain, hypertrophy, heart block. No WPW/Brugada/HOCM. Unchanged when compared with old EKG Attestation Statement - Attestation Attestation: I, Rylan Bee DO, examined this patient [id number] and my medical decision-making was reviewed with Dr. Simon Villalpando, Resident Physician. I agree with the documented findings, disposition and treatment plan as described except to the extent set forth below. Please see my progress notes for details.
[2018-07-17 13:21] LABS: Basophils # 0.1 K/mcL (0.0-0.2); Basophils % 0.5 %; Eosinophils # 0.2 K/mcL (0.0-0.6); Eosinophils % 2.1 %; Hematocrit 33.6 % (37.5-50.1); Immature Granulocytes % 0.6 % (0-4); Lymphocytes # 2.6 K/mcL (0.6-4.6); Lymphocytes % 25.1 %; Mean Corpuscular HGB Conc 32.7 g/dL (31.6-35.5); Mean Corpuscular Hemoglobin 30.8 pg (28.0-33.3); Mean Corpuscular Volume 94.1 fL (83.0-100.0); Mean Platelet Volume 9.3 fL (9.4-12.4); Monocytes # 0.9 K/mcL (0.0-1.3); Monocytes % 8.3 %; Neutrophils # 6.6 K/mcL (1.6-8.9); Platelet Count 314 K/mcL (140-400); Red Blood Count 3.57 M/mcL (4.19-5.50); Segmented Neutrophils % 63.4 %
[2018-07-17 13:28] LABS: Bilirubin,Urine Negative (Negative); Blood,Urine Negative (Negative); Clarity,Urine Clear (Clear); Color,Urine Yellow (Yellow); Glucose,Urine (UA) Normal (Normal); Ketones,Urine Negative (Negative); Leukocyte Esterase,Urine Negative (Negative); Nitrite,Urine Negative (Negative); Protein,Urine Negative (Neg-Trace); Specific Gravity,Urine > 1.030 (1.010-1.025); Urobilinogen,Urine Normal (Normal)
[2018-07-17 13:29] LABS: INR 1.2; Prothrombin Time 13.5 Seconds (9.4-12.1)
[2018-07-17 13:32] LABS: Activated Partial Thrombo Time 35.4 Seconds (26.0-36.0)
[2018-07-17 13:44] LABS: Troponin I < 0.03 ng/mL (< 0.04)
[2018-07-17 13:52] LABS: Alanine Aminotransferase 26 Units/L (7-52); Albumin 3.9 g/dL (3.5-5.7); Albumin/Globulin Ratio 0.9 (1.1-2.2); Alkaline Phosphatase 155 Units/L (34-104); Aspartate Amino Transferase 26 Units/L (13-39); BUN/Creatinine Ratio 25 (6-26); Bilirubin,Direct 0.1 mg/dL (0.0-0.2); Bilirubin,Indirect 0.5 mg/dL (0.0-1.2); Bilirubin,Total 0.6 mg/dL (0.3-1.0); Blood Urea Nitrogen 30 mg/dL (8-23); Calcium 9.6 mg/dL (8.6-10.3); Carbon Dioxide 25 mEq/L (23-29); Chloride 104 mEq/L (98-107); Globulin 4.5 g/dL (2.4-3.5); Glucose 122 mg/dL (70-105); Magnesium 2.3 mg/dL (1.6-2.6); Osmolality,Calculated 293 (280-300); Phosphorous 3.2 mg/dL (2.7-4.5); Potassium 4.2 mEq/L (3.5-5.1); Sodium 138 mEq/L (136-145); Total Protein 8.4 g/dL (6.4-8.9); eGFR For Non-African Americans 58 (> 60)
--- NOTE | 2018-07-17 14:04 | Emergency Department Note ---
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 Qualified Code(s ): E11.621 - Type 2 diabetes mellitus with foot ulcer Disposition: Admitted As Inpatient Condition: Fair Forms: ED Satisfaction Letter Time of Disposition: 16:05 General Adult HPI - General Chief complaint: ED Extremity Problem,Nontraumatic Stated complaint: From Wound Care for Admission Time Seen by Provider: 07/17/18 12:17 Source: patient Mode of arrival: wheelchair Limitations: no limitations - History of Present Illness Pain Scale: 0 - Related Data Home Medications Medication Instructions Recorded Confirmed Aspirin [Lo-Dose Aspirin EC] 81 mg PO DAILY 11/07/17 07/17/18 Atenolol [Tenormin] 25 mg PO DAILY 11/07/17 07/17/18 Cholecalciferol (D-3) [Vitamin D] 2,000 unit PO DAILY 11/07/17 07/17/18 Escitalopram [Lexapro] 10 mg PO DAILY 11/07/17 07/17/18 Furosemide [Lasix] 40 mg PO DAILY 11/07/17 07/17/18 Isosorbide MONOnitrate (24 HR) 30 mg PO DAILY 11/07/17 07/17/18 [Imdur] Lisinopril-HCTZ 20-12.5 [Prinzide 1 tab PO DAILY 11/07/17 07/17/18 20-12.5] Multivitamin [One Daily Essential] 1 tab PO DAILY 11/07/17 07/17/18 Nitroglycerin [Nitrostat] 0.4 mg SL Q5M PRN 11/07/17 07/17/18 Potassium Gluconate 198 mg PO DAILY 11/07/17 07/17/18 Ranitidine HCl [Heartburn Relief] 150 mg PO BID 11/07/17 07/17/18 Subcutaneous Insulin Pump [T:Slim] 80 unit MC AD 11/07/17 07/17/18 Ticagrelor [Brilinta] 90 mg PO BID 11/07/17 07/17/18 Rosuvastatin Calcium [Crestor] 10 mg PO HS 07/17/18 07/17/18 Allergies Allergy/AdvReac Type Severity Reaction Status Date / Time clopidogrel [From Plavix] Allergy Hives Verified 07/17/18 13:06 Iodinated Contrast- Oral and Allergy Hives Verified 07/17/18 13:06 IV Dye meperidine [From Demerol] Allergy Hives Verified 07/17/18 13:06 shellfish derived Allergy Hives Verified 07/17/18 13:06 Past Medical History - Past Medical History Medical history: Reports: arthritis, cancer, CHF, coronary artery disease, diabetes, GERD, hyperlipidemia, hypertension, myocardial infarction, RA Surgical history: Reports: angioplasty/stent, cancer surgery, orthopedic, other , prostatectomy, other Psychiatric history: Reports: no psych history - Social History Smoking Status: Never smoker Smokeless Tobacco Status: No Alcohol use: Reports: none Drug use: Reports: none Physical Exam - General Limitations: no limitations General appearance: alert, in no apparent distress Course Vital Signs Temperature 98.0 F 07/17/18 12:00 Pulse Rate 63 07/17/18 12:00 Respiratory Rate 18 07/17/18 12:00 Blood Pressure 143/57 07/17/18 12:00 O2 Sat by Pulse Oximetry 100 07/17/18 12:00 Temperature 98.0 F 07/17/18 12:00 Pulse Rate 67 07/17/18 14:48 Respiratory Rate 20 07/17/18 14:48 Blood Pressure 153/67 07/17/18 14:48 O2 Sat by Pulse Oximetry 100 07/17/18 14:48 Oxygen Delivery Oxygen Delivery Room Air Medical Decision Making - Lab Data Result diagrams: 07/17/18 12:29 07/17/18 12:29 Lab Results 07/17/18 07/17/18 07/17/18 Range/Units 12:29 12:29 12:29 WBC 10.4 (4.3-11.1) K/mcL RBC 3.57 L (4.19-5.50) M/mcL Hgb 11.0 L (12.9-16.9) g/dL Hct 33.6 L (37.5-50.1) % MCV 94.1 (83.0-100.0) fL MCH 30.8 (28.0-33.3) pg MCHC 32.7 (31.6-35.5) g/dL RDW 13.0 (11.5-14.5) % Plt Count 314 (140-400) K/mcL MPV 9.3 L (9.4-12.4) fL Immature Gran % 0.6 (0-4) % Seg Neutrophils % 63.4 % Lymphocytes % 25.1 % Monocytes % 8.3 % Eosinophils % 2.1 % Basophils % 0.5 % Neutrophils # 6.6 (1.6-8.9) K/mcL Lymphocytes # 2.6 (0.6-4.6) K/mcL Monocytes # 0.9 (0.0-1.3) K/mcL Eosinophils # 0.2 (0.0-0.6) K/mcL Basophils # 0.1 (0.0-0.2) K/mcL PT 13.5 H (9.4-12.1) Seconds INR 1.2 APTT 35.4 (26.0-36.0) Seconds Sodium 138 (136-145) mEq/L Potassium 4.2 (3.5-5.1) mEq/L Chloride 104 (98-107) mEq/L Carbon Dioxide 25 (23-29) mEq/L BUN 30 H (8-23) mg/dL Creatinine 1.20 (0.70-1.30) mg/dL Est GFR ( Amer) > 60 (> 60) Est GFR (Non-Af Amer) 58 L (> 60) BUN/Creatinine Ratio 25 (6-26) Glucose 122 H (70-105) mg/dL Calculated Osmolality 293 (280-300) Lactic Acid (0.5-2.2) mmol/L Calcium 9.6 (8.6-10.3) mg/dL Phosphorus 3.2 (2.7-4.5) mg/dL Magnesium 2.3 (1.6-2.6) mg/dL Total Bilirubin 0.6 (0.3-1.0) mg/dL Direct Bilirubin 0.1 (0.0-0.2) mg/dL Indirect Bilirubin 0.5 (0.0-1.2) mg/dL AST 26 (13-39) Units/L ALT 26 (7-52) Units/L Alkaline Phosphatase 155 H (34-104) Units/L Troponin I < 0.03 (< 0.04) ng/mL Serum Total Protein 8.4 (6.4-8.9) g/dL Albumin 3.9 (3.5-5.7) g/dL Globulin 4.5 H (2.4-3.5) g/dL Albumin/Globulin Ratio 0.9 L (1.1-2.2) Urine Color (Yellow) Urine Clarity (Clear) Urine pH (5.0-8.0) pH Units Ur Specific [place] (1.010-1.025) Urine Protein (Neg-Trace) mg/dL Urine Glucose (UA) (Normal) mg/dL Urine Ketones (Negative) mg/dL Urine Blood (Negative) Urine Nitrite (Negative) Urine Bilirubin (Negative) Urine Urobilinogen (Normal) mg/dL Ur Leukocyte Esterase (Negative) Ur Culture Indicated? (NO) 07/17/18 07/17/18 Range/Units 12:47 13:07 WBC (4.3-11.1) K/mcL RBC (4.19-5.50) M/mcL Hgb (12.9-16.9) g/dL Hct (37.5-50.1) % MCV (83.0-100.0) fL MCH (28.0-33.3) pg MCHC (31.6-35.5) g/dL RDW (11.5-14.5) % Plt Count (140-400) K/mcL MPV (9.4-12.4) fL Immature Gran % (0-4) % Seg Neutrophils % % Lymphocytes % % Monocytes % % Eosinophils % % Basophils % % Neutrophils # (1.6-8.9) K/mcL Lymphocytes # (0.6-4.6) K/mcL Monocytes # (0.0-1.3) K/mcL Eosinophils # (0.0-0.6) K/mcL Basophils # (0.0-0.2) K/mcL PT (9.4-12.1) Seconds INR APTT (26.0-36.0) Seconds Sodium (136-145) mEq/L Potassium (3.5-5.1) mEq/L Chloride (98-107) mEq/L Carbon Dioxide (23-29) mEq/L BUN (8-23) mg/dL Creatinine (0.70-1.30) mg/dL Est GFR ( Amer) (> 60) Est GFR (Non-Af Amer) (> 60) BUN/Creatinine Ratio (6-26) Glucose (70-105) mg/dL Calculated Osmolality (280-300) Lactic Acid 1.4 (0.5-2.2) mmol/L Calcium (8.6-10.3) mg/dL Phosphorus (2.7-4.5) mg/dL Magnesium (1.6-2.6) mg/dL Total Bilirubin (0.3-1.0) mg/dL Direct Bilirubin (0.0-0.2) mg/dL Indirect Bilirubin (0.0-1.2) mg/dL AST (13-39) Units/L ALT (7-52) Units/L Alkaline Phosphatase (34-104) Units/L Troponin I (< 0.04) ng/mL Serum Total Protein (6.4-8.9) g/dL Albumin (3.5-5.7) g/dL Globulin (2.4-3.5) g/dL Albumin/Globulin Ratio (1.1-2.2) Urine Color Yellow (Yellow) Urine Clarity Clear (Clear) Urine pH 7.0 (5.0-8.0) pH Units Ur Specific [place] > 1.030 H (1.010-1.025) Urine Protein Negative (Neg-Trace) mg/dL Urine Glucose (UA) Normal (Normal) mg/dL Urine Ketones Negative (Negative) mg/dL Urine Blood Negative (Negative) Urine Nitrite Negative (Negative) Urine Bilirubin Negative (Negative) Urine Urobilinogen Normal (Normal) mg/dL Ur Leukocyte Esterase Negative (Negative) Ur Culture Indicated? NO (NO) Attestation Statement - Attestation Attestation: I, Rylan Bee DO, examined this patient [id number] and my medical decision-making was reviewed with Dr. Simon Villalpando, Resident Physician. I agree with the documented findings, disposition and treatment plan as described except to the extent set forth below. Please see my progress notes for details. 77-year-old male presents emergency room from the wound care clinic today. Patient was evaluated for postsurgical related infection. Patient has a diabetic wound to the great toe of the lower extremity. Pylorus from his affected extremity at this time. From the knee down to the ankle there is significant swelling and pain. There is once noted. Patient's pulses are intact. Area of redness and irritation of the distal aspect the great toe was amputated. There is an open wound. Patient has had intermittent fevers and chills. Denies any chest pain shortness of breath headache vision changes nausea vomiting or diarrhea. No other complaints or issues at this time. Patient was seen and evaluated by podiatry Dr. Levy. He recommended antibiotics admission the hospital. X-ray of the foot as well as Doppler study of the extremity will be completed. Labs including CBC chemistry and blood cultures will be added on at this time. Antibiotics including vancomycin and Zosyn have been ordered. Disposition will be admission the hospital for continuation of care. Patient's physical exam is otherwise unremarkable. Workup will be completed admission process to be established. See detailed documentation of the physical exam, medical intervention, medical decision- making and disposition in the resident physician's note. No critical care provider the patient's treatment course at this time. 1515 Doppler study of the right lower extremity is negative for deep venous thrombosis. X-ray does show osteomyelitis of the MTP of the first digit of the right foot. IV antibiotics his abdomen ordered. Patient does not have any significant signs of elevated white blood cell count. Hospitalist was contacted. Dr. Solis reviewed the case and had no other concerns or issues. Patient will be admitted for continuation of care what appears to be a diabetic foot ulcer with osteomyelitis after a surgery. No other concerns or issues noted this time. Patient otherwise clinical stable. Admission process to be established. We will monitor the patient in emergency room until admission is completed
[2018-07-17] MEDS ORDERED: Acetaminophen 325 MG TABLET PO ONE (16:03)
[2018-07-17] MEDS ORDERED: Naloxone 0.4 MG/ML INJ IVP PRN (18:29)
[2018-07-17] MEDS ORDERED: Dextrose Gel 15 GM/37.5 ML TUBE PO PRN ×2 (18:31)
[2018-07-17] MEDS ORDERED: D5% in Water 1,000 ML IVC PRN (18:31)
[2018-07-17] MEDS ORDERED: *HR* Dextrose 50 % in Water (Syg) 50 ML SYRINGE IVP PRN (18:31)
[2018-07-17] MEDS ORDERED: Nitroglycerin 0.4 MG TAB.SUBL SL PRN (18:37)
[2018-07-17] MEDS ORDERED: SUBCUTANEOUS INSULIN PUMP MC SCH (18:45)
[2018-07-17 20:24] LABS: Estimated Average Glucose 160 mg/dl; Hemoglobin A1C 7.2 %
--- NOTE | 2018-07-17 20:30 | Internal Med History&Physical ---
Date of Encounter: 07/17/18 Time of Encounter: 19:00 Internal Medicine - H&P: HPI Chief complaint: NON-HEALING DIABETIC ULCER OF RIGHT GREAT TOE Admitted From: Home Plans for Post Hospital Care: Home History of present illness: The patient is a 77-year-old man with a long-standing type 2 diabetes mellitus; on insulin pump for about 10 years. It was about 4 weeks ago, when he developed the blister at the tip of his right great toe. Then, it transformed to a diabetic ulcer. His textile designer, Dr. Garcia, proceeded with the very distal amputation of right great toe. The wound is not healing well. It looks , that he might have developed chronic ulceration/osteomyelitis in that area. This is why he was referred by Dr. Garcia for treatment in our institution. This patient has had quite severe diabetic peripheral neuropathy. He does not feel any pain in the area of right foot. He has not noticed any fever or chills recently. His glucose control remains good. His last A1c was 7-8% recently. He has been treated for type 2 diabetes mellitus with insulin pump. He is also treated for hypertension and hyperlipidemia. He may have coronary artery disease. He was diagnosed with myocardial infarction on 2 occasions; the last one happened a few years ago. He had a total prostatectomy a few years agofor treatment of prostate cancer. REVIEW OF SYSTEMS: All 14 organ systems were reviewed by me with the patient. Positive and pertinent negative findings are listed above. The rest of organ systems is negative. PHYSICAL EXAM: Skin: One can see a chronic ulceration located in the distal portion of his right great toe. It seems to be infected. Eyes: Sclera is white. There is no discharge from eyes. ENMT: Oral/pharyngeal mucosa is normal in appearance. There is no discharge from nose or ears. Respiratory: Normal breath sounds with no crackles and wheezes bilaterally. CV: Heart is regular with no gallop or murmur. GI: Abdomen is flat and soft with no palpable mass or visceromegaly. : There is no tenderness in patient's flanks bilaterally. Neuro exam: He has good strength in upper and lower extremities. He has normal eye movements. Psychiatric: He has normal affect. His thought process is appropriate to the situation. ADDITIONAL DATA: His CBC from today shows hemoglobin of 11.0 with WBC of 11.0 thousand. Associated with normal electrolytes and creatinine of 1.20. Associated with normal hepatic panel. A/P: Diabetic ulcer of right great toe/chronic ulceration of right great toe with fat layer exposed. With possible osteomyelitis. Podiatry consult has been requested. The patient is on IV vancomycin and IV Zosyn. He will likely undergo surgery soon. Type 2 diabetes mellitus; long-standing/on insulin pump. We will keep him on diabetic diet. Fingersticks for glucose before meals and at bedtime. He will continue continuous insulin with boluses. Hypertension/hyperlipidemia. We will continue treatments started before. Past Med Surg Social Fam HX - Past Medical History Medical history: arthritis, cancer, CHF, coronary artery disease, diabetes, GERD , hyperlipidemia, hypertension, myocardial infarction, RA Additional medical history: PROSTATE CANCER, parkinsons, diverticulosis, hemmorhoids, pulmonary nodule, urinary ED, onychomycosis, paresthesia, seborrheic dermatitis, actinic keratosis, vit D def, basal cell cancer - nose Psychiatric history: no psych history - Past Surgical History Surgical History: angioplasty/stent, cancer surgery, orthopedic, other, prostatectomy, other Additional surgical history: TONSILLECTOMY, COLONOSCOPY, R foot toe amputation, heart stent, hemhorroid, colonoscopy/EGD, R foot sx, anal fissure, heart cath, Mohs sx - BCC left nose - Social History Smoking Status: Never smoker Smokeless Tobacco Status: No Alcohol use: none Drug use: none - Family History Mother Family Member Ethnicity: Non- Living Status: Hx Family Cancer: Yes Internal Medicine - H&P: Meds Aspirin [Lo-Dose Aspirin EC] 81 mg PO DAILY 11/07/17 [History] Atenolol [Tenormin] 25 mg PO DAILY 11/07/17 [History] Cholecalciferol (D-3) [Vitamin D] 2,000 unit PO DAILY 11/07/17 [History] Escitalopram [Lexapro] 10 mg PO DAILY 11/07/17 [History] Furosemide [Lasix] 40 mg PO DAILY 11/07/17 [History] Isosorbide MONOnitrate (24 HR) [Imdur] 30 mg PO DAILY 11/07/17 [History] Lisinopril-HCTZ 20-12.5 [Prinzide 20-12.5] 1 tab PO DAILY 11/07/17 [History] Multivitamin [One Daily Essential] 1 tab PO DAILY 11/07/17 [History] Nitroglycerin [Nitrostat] 0.4 mg SL Q5M PRN 11/07/17 [History] Potassium Gluconate 198 mg PO DAILY 11/07/17 [History] Ranitidine HCl [Heartburn Relief] 150 mg PO BID 11/07/17 [History] Subcutaneous Insulin Pump [T:Slim] 80 unit MC AD 11/07/17 [History] Ticagrelor [Brilinta] 90 mg PO BID 11/07/17 [History] Rosuvastatin Calcium [Crestor] 10 mg PO HS 07/17/18 [History] 3 Allergy/AdvReac Type Severity Reaction Status Date / Time clopidogrel [From Plavix] Allergy Hives Verified 07/17/18 13:06 Iodinated Contrast- Oral and Allergy Hives Verified 07/17/18 13:06 IV Dye meperidine [From Demerol] Allergy Hives Verified 07/17/18 13:06 shellfish derived Allergy Hives Verified 07/17/18 13:06 - Constitutional Vitals: Temp Pulse Resp BP Pulse Ox 98.0 F 67 18 119/95 100 07/17/18 12:00 07/17/18 14:48 07/17/18 16:55 07/17/18 16:55 07/17/18 14:48 General appearance: Present: A&O X 3, no acute distress, answers questions appropriately Exam: xx Internal Med - H&P Results - Labs CBC & Chem 7: 07/17/18 12:29 07/17/18 12:29 - Assessment and plan (1) Chronic ulcer of great toe of right foot with fat layer exposed Current Visit: Yes Status: Acute (2) Type 2 diabetes mellitus with foot ulcer Current Visit: Yes Status: Acute Qualifiers: Diabetes mellitus shelter insulin use: with shelter use Qualified Code( s): E11.621 - Type 2 diabetes mellitus with foot ulcer; L97.509 - Non-pressure chronic ulcer of other part of unspecified foot with unspecified severity; Z79.4 - jail (current) use of insulin (3) Osteomyelitis Current Visit: No Status: Acute Qualifiers: Osteomyelitis type: other acute Osteomyelitis location: foot Laterality: right Qualified Code(s): M86.171 - Other acute osteomyelitis, right ankle and foot (4) HTN (hypertension) Current Visit: Yes Status: Acute Qualifiers: Hypertension type: essential hypertension Qualified Code(s): I10 - Essential (primary) hypertension (5) HLD (hyperlipidemia) Current Visit: Yes Status: Acute Qualifiers: Hyperlipidemia type: unspecified Qualified Code(s): E78.5 - Hyperlipidemia , unspecified - Time Spent With Patient Total time spent is greater than 50% in coordination of care (as documented) at patient's floor/unit and/or counseling patient:
[2018-07-17] MEDS: Famotidine 20 MG TABLET PO SCH (20:32)
[2018-07-17] MEDS: *HR* Ticagrelor 90 MG TABLET PO SCH (20:33)
[2018-07-17] MEDS ORDERED: Insulin LISPRO 300 UNITS/3 ML VIAL SQ SCH (21:30)
[2018-07-18] MEDS ORDERED: Acetaminophen 325 MG TABLET PO ONE ×2 (00:24→19:28)
[2018-07-18 05:35] LABS: BUN/Creatinine Ratio 21 (6-26); Blood Urea Nitrogen 20 mg/dL (8-23); Calcium 8.5 mg/dL (8.6-10.3); Carbon Dioxide 23 mEq/L (23-29); Chloride 107 mEq/L (98-107); Glucose 142 mg/dL (70-105); Osmolality,Calculated 289 (280-300); Potassium 4.2 mEq/L (3.5-5.1); Sodium 137 mEq/L (136-145); eGFR For Non-African Americans > 60 (> 60)
--- NOTE | 2018-07-18 07:12 | Podiatry Consult Note ---
Date of Encounter: 07/18/18 Time of Encounter: 05:25 Assessment and Plan (1) Osteomyelitis Current visit: Yes Status: Acute Reviewed with patient his x-ray and condition and concern for bone infection with the bone debris's and changes on the x-ray. We discussed the infection which he does have. We discussed treatment options. He is going to proceed surgically with revision of the amputation site of the right hallux. Nature of the procedure, risks versus benefits potential propagation consequences of surgery and his condition discussed at length. Discussed that this could be a staged procedure and require multiple surgeries. No guarantees made as to the outcome of any procedure and he understood that despite having surgery he will still have a wound to heal and he could have wound healing problems or lose part of his foot or leg. All of his questions were answered and the informed consent was signed. NPO. To OR later today. Qualifiers: Osteomyelitis type: other acute Osteomyelitis location: foot Laterality: right Qualified Code(s): M86.171 - Other acute osteomyelitis, right ankle and foot History of Present Illness HPI: Mr. Lagunas is a 77 year old diabetic male with an infection at the amputation site at the right big toe. He was seen in wound clinic and had developed some redness in the wound had some bone debris in it. He was sent to the ER for admission. His was helping him take care of the wound at home. He has been wearing a surgical shoe. Denies f/c/n/v/sob/cp/calf pain. Past Med Surg Social Fam HX - Past Medical History Medical history: arthritis, cancer, CHF, coronary artery disease, diabetes, GERD , hyperlipidemia, hypertension, myocardial infarction, RA Additional medical history: PROSTATE CANCER, parkinsons, diverticulosis, hemmorhoids, pulmonary nodule, urinary ED, onychomycosis, paresthesia, seborrheic dermatitis, actinic keratosis, vit D def, basal cell cancer - nose Psychiatric history: no psych history - Past Surgical History Surgical History: angioplasty/stent, cancer surgery, orthopedic, other, prostatectomy, other Additional surgical history: TONSILLECTOMY, COLONOSCOPY, R foot toe amputation, heart stent, hemhorroid, colonoscopy/EGD, R foot sx, anal fissure, heart cath, Mohs sx - BCC left nose - Social History Smoking Status: Never smoker Smokeless Tobacco Status: No Alcohol use: none Drug use: none - Family History Mother Family Member Ethnicity: Non- Living Status: Hx Family Cancer: Yes Medications and Allergies Aspirin [Lo-Dose Aspirin EC] 81 mg PO DAILY 11/07/17 [History] Atenolol [Tenormin] 25 mg PO DAILY 11/07/17 [History] Cholecalciferol (D-3) [Vitamin D] 2,000 unit PO DAILY 11/07/17 [History] Escitalopram [Lexapro] 10 mg PO DAILY 11/07/17 [History] Furosemide [Lasix] 40 mg PO DAILY 11/07/17 [History] Isosorbide MONOnitrate (24 HR) [Imdur] 30 mg PO DAILY 11/07/17 [History] Lisinopril-HCTZ 20-12.5 [Prinzide 20-12.5] 1 tab PO DAILY 11/07/17 [History] Multivitamin [One Daily Essential] 1 tab PO DAILY 11/07/17 [History] Nitroglycerin [Nitrostat] 0.4 mg SL Q5M PRN 11/07/17 [History] Potassium Gluconate 198 mg PO DAILY 11/07/17 [History] Ranitidine HCl [Heartburn Relief] 150 mg PO BID 11/07/17 [History] Subcutaneous Insulin Pump [T:Slim] 80 unit MC AD 11/07/17 [History] Ticagrelor [Brilinta] 90 mg PO BID 11/07/17 [History] Rosuvastatin Calcium [Crestor] 10 mg PO HS 07/17/18 [History] 3 Allergy/AdvReac Type Severity Reaction Status Date / Time clopidogrel [From Plavix] Allergy Hives Verified 07/17/18 13:06 Iodinated Contrast- Oral and Allergy Hives Verified 07/17/18 13:06 IV Dye meperidine [From Demerol] Allergy Hives Verified 07/17/18 13:06 shellfish derived Allergy Hives Verified 07/17/18 13:06 All Systems Reviewed: The remainder of the systems were reviewed and are negative - Constitutional Constitutional: no fever(s) - Cardiovascular Cardiovascular: no chest pain, no dyspnea - Respiratory Respiratory: no cough, no dyspnea - Musculoskeletal Musculoskeletal: numbness Physical Exam - Constitutional Vitals: Temp Pulse Resp BP Pulse Ox 98.4 F 73 16 129/68 98 07/18/18 06:28 07/18/18 06:28 07/18/18 06:28 07/18/18 06:28 07/18/18 06:28 General appearance: no acute distress Exam: Well-developed and nourished male in no acute distress Hallux amputation site has exposed bone with bony debris in the wound. There is no necrosis. Foot is warm to touch. No purulence expressed. No fluctuance. Mild erythema around the site and extending onto the foot. Wound measures approximately 2 cm x 2 cm x 0.3 cm. Diminished protective sensation. No pain with palpation. No pain with range of motion of the lesser MTP joints. Results - Labs Result Diagrams: 07/17/18 12:29 07/18/18 04:29 Labs: Abnormal lab results RBC 3.57 M/mcL (4.19-5.50) L 07/17/18 12:29 Hgb 11.0 g/dL (12.9-16.9) L 07/17/18 12:29 Hct 33.6 % (37.5-50.1) L 07/17/18 12:29 MPV 9.3 fL (9.4-12.4) L 07/17/18 12:29 ESR 81 mm/hr (0-10) H 07/18/18 04:29 PT 13.5 Seconds (9.4-12.1) H 07/17/18 12:29 Glucose 142 mg/dL (70-105) H 07/18/18 04:29 Hemoglobin A1c 7.2 % (-5.6) H 07/17/18 13:07 Calcium 8.5 mg/dL (8.6-10.3) L 07/18/18 04:29 Alkaline Phosphatase 155 Units/L (34-104) H 07/17/18 12:29 Globulin 4.5 g/dL (2.4-3.5) H 07/17/18 12:29 Albumin/Globulin Ratio 0.9 (1.1-2.2) L 07/17/18 12:29 Ur Specific [place] > 1.030 (1.010-1.025) H 07/17/18 12:47 All other labs normal. Consult Discharge Plan - Plan Referrals: Chris Garcia DO [Primary Care Provider] -
[2018-07-18] MEDS: Famotidine 20 MG TABLET PO SCH (08:43)
[2018-07-18] MEDS: *HR* Ticagrelor 90 MG TABLET PO SCH ×2 (08:44→19:41)
[2018-07-18] MEDS ORDERED: Isosorbide MONOnitrate (24 HR) 30 MG TAB.ER.24H PO SCH (09:00)
[2018-07-18] MEDS ORDERED: Cholecalciferol (D-3) 1,000 UNIT TABLET PO SCH (09:00)
[2018-07-18] MEDS ORDERED: Lisinopril-HCTZ 20-12.5mg TABLET PO SCH (09:00)
[2018-07-18] MEDS ORDERED: Furosemide 40 MG TABLET PO SCH (09:00)
[2018-07-18] MEDS ORDERED: Aspirin Enteric Coated 81 MG Tablet PO SCH (09:00)
[2018-07-18] MEDS ORDERED: Multivit/Ca/Min/Fe/FA 1 TAB TABLET PO SCH (09:00)
[2018-07-18] MEDS: Insulin LISPRO 300 UNITS/3 ML VIAL SQ SCH ×3 (11:31→19:37)
[2018-07-18] MEDS ORDERED: *HR* FentaNYL (PF) 100 MCG/2 ML VIAL ONE (16:02)
[2018-07-18] MEDS ORDERED: Lidocaine -MPF 2% 2 ML VIAL ONE ×2 (16:02→16:57)
[2018-07-18] MEDS ORDERED: *HR* Propofol 200 MG/20 ML VIAL IVP ONE (16:03)
--- NOTE | 2018-07-18 16:07 | Anesthesia Evaluation PreOp ---
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: Other (Parkinson's) Other Medical History: Diabetes Type II Anesthesia History: No Prior Anesthetic Complications Alcohol Use: none Drug use: none Medications and Allergies Aspirin [Lo-Dose Aspirin EC] 81 mg PO DAILY 11/07/17 [History] Atenolol [Tenormin] 25 mg PO DAILY 11/07/17 [History] Cholecalciferol (D-3) [Vitamin D] 2,000 unit PO DAILY 11/07/17 [History] Escitalopram [Lexapro] 10 mg PO DAILY 11/07/17 [History] Furosemide [Lasix] 40 mg PO DAILY 11/07/17 [History] Isosorbide MONOnitrate (24 HR) [Imdur] 30 mg PO DAILY 11/07/17 [History] Lisinopril-HCTZ 20-12.5 [Prinzide 20-12.5] 1 tab PO DAILY 11/07/17 [History] Multivitamin [One Daily Essential] 1 tab PO DAILY 11/07/17 [History] Nitroglycerin [Nitrostat] 0.4 mg SL Q5M PRN 11/07/17 [History] Potassium Gluconate 198 mg PO DAILY 11/07/17 [History] Ranitidine HCl [Heartburn Relief] 150 mg PO BID 11/07/17 [History] Subcutaneous Insulin Pump [T:Slim] 80 unit MC AD 11/07/17 [History] Ticagrelor [Brilinta] 90 mg PO BID 11/07/17 [History] Rosuvastatin Calcium [Crestor] 10 mg PO HS 07/17/18 [History] 3 Allergy/AdvReac Type Severity Reaction Status Date / Time clopidogrel [From Plavix] Allergy Hives Verified 07/17/18 13:06 Iodinated Contrast- Oral and Allergy Hives Verified 07/17/18 13:06 IV Dye meperidine [From Demerol] Allergy Hives Verified 07/17/18 13:06 shellfish derived Allergy Hives Verified 07/17/18 13:06 - Meds/Allergy Pre-op Review Medications Reviewed: Yes Allergies Reviewed: Yes Beta Blockers on Current Med List: Yes (Atenolol today 827) Anesthesia Results - Labs 07/17/18 12:29 07/18/18 04:29 - Imaging EKG: report reviewed (SR) Additional studies: ECHO 2016 EF 60%, no pulm htn Anesthesia Exam O2 Sat Weight 82.555 kg O2 Sat by Pulse Oximetry 97 O2 Sat by Pulse Oximetry 98 O2 Sat by Pulse Oximetry 97 O2 Sat by Pulse Oximetry 97 O2 Sat by Pulse Oximetry 97 O2 Sat by Pulse Oximetry 97 Vital Signs Temp Pulse Resp BP Pulse Ox 98.0 F 63 18 143/57 100 07/17/18 12:00 07/17/18 12:00 07/17/18 12:00 07/17/18 12:00 07/17/18 12:00 Height: 6'2 Weight: 182 lbs NPO (# of Hours): MN Pain Scale: 0 - HEENT Pupil (Motor): Pupils equal, EOMI Mallampati: III Teeth: Edentulous Oral Opening: Less than or equal to 3 - BACK END ENGINEER LOC: Oriented BACK END ENGINEER Motor: Normal RUE, Normal LUE, Normal RLE, Normal LLE, Normal Face BACK END ENGINEER Sensory: Normal: RUE, LUE, LLE, Face, Deficit: RLE (paresthesia) - Cardiac Rhythm: Regular Murmur: None JVD: No Carotid Bruit: No - Pulmonary Breath Sounds: bilateral Clear Respiratory Effort: Symmetrical Anesthesia Assess/Plan ASA Score: 3 (DM HTN) Modified [place] Scale for Level of Consciousness: Cooperative, oriented, and tranquil Anesthetic Plan: MAC Monitoring Plan: Standard Monitors Recovery Plan: Other (Discussed MAC, agrees to proceed)
[2018-07-18] MEDS ORDERED: *HR* Midazolam HCl 2 MG/2 ML VIAL ONE (16:22)
--- NOTE | 2018-07-18 16:23 | Operative Note ---
Date of procedure: 07/18/18 Pre-op diagnosis: osteomyelitis right hallux Post-op diagnosis: same Procedure: amputation of right hallux Implants: none Complications: none Anesthesia: MAC Surgeon: Brannon Garcia Was there an export sales assistant present: No Estimated blood loss (cc): 15 Specimen: right hallux bone micro and path, soft tissue-micro Condition: stable Disposition: PACU Procedure in Detail: Indications: 77-year-old diabetic male with right hallux infection of remaining bone being brought to the operating room for amputation at the level of metatarsophalangeal joint after having the nature of the procedure, risks first benefits potential application consequences of his condition surgery discussed at length. No guarantees made as to the outcome. Patient understood he could still have a wound heal. Patient understood that he is high risk for partial foot/limb loss. All of his questions were answered and the informed consent was signed. The right foot scrubbed prepped and draped in the usual sterile fashion. A tourniquet was applied but not inflated during the entire procedure. The following procedure began after injecting 1% lidocaine plain into the patient's right foot. Amputation right hallux. Attention was directed to the dorsal aspect of the patient's right foot #15 blade used to make an incision over the first MTP joint full-thickness down to the level of the bone. The soft tissue was freed from the remaining phalanx bone. The toe was disarticulated at the metatarsophalangeal joint and bone was sent to microbiology and pathology. Soft tissue which was devitalized was sent to microbiology. The site was flushed with copious amounts of normal sterile saline. Adequate hemostasis was present. No devitalized tissue remained evident in the wound. The flexor and extensor tendons were traced proximal and excised. The wound was deemed adequate for closure and 2-0 Prolene was used to close the skin. Postoperative bandaging included Adaptic, 4 x 4 gauze Kerlix and a loosely applied Reese wrap. The patient tolerated the anesthesia and the procedure well escorted the recovery room with vital signs stable and vascular status intact to the remaining digits of the right foot. He will return to the floor where he will continue IV antibiotics.
[2018-07-18] MEDS ORDERED: *HR* Promethazine 25 MG/ML VIAL IVP PRN (17:03)
[2018-07-18] MEDS ORDERED: Ondansetron 4 MG/2 ML VIAL IVP ONE (17:03)
[2018-07-18] MEDS ORDERED: Dextrose Gel 15 GM/37.5 ML TUBE PO PRN ×2 (17:32)
[2018-07-18] MEDS ORDERED: *HR* Dextrose 50 % in Water (Syg) 50 ML SYRINGE IVP PRN (17:32)
[2018-07-18] MEDS ORDERED: Nitroglycerin 0.4 MG TAB.SUBL SL PRN (17:32)
[2018-07-18] MEDS ORDERED: D5% in Water 1,000 ML IVC PRN (17:32)
[2018-07-18] MEDS ORDERED: Naloxone 0.4 MG/ML INJ IVP PRN (17:32)
--- NOTE | 2018-07-18 17:36 | Anesthesia Evaluation Post Op ---
Date of Encounter: 07/18/18 Time of Encounter: 17:20 - Vital Signs Vital Signs: Vital Signs/O2 Sat/Glucose, Most Current Temp Pulse Resp BP Pulse Ox 07/18/18 17:33 98.5 F 57 16 133/59 99 07/18/18 16:00 62 18 117/76 94 - Lungs Lungs: Clear Ascult./Percussion - Airway Airway: Non-obstructed - Cardiovascular Regular Rate - Mental Status Mental Status: Alert & Oriented, Answers Appropriately - Pain Pain Scale: 0 - Nausea Vomiting Nausea Vomiting: Not Present - Hydration Hydration: Tolerates oral liquids - Discharge PostOp Status: Transfer Patient to floor
[2018-07-18] MEDS: Subcutaneous Insulin Pump [T:Slim] SQ SCH (19:25)
--- NOTE | 2018-07-18 23:07 | Internal Med Progress Note ---
Hospitalist Progress Note - Encounter Date of Encounter: 07/18/18 Time of Encounter: 19:00 - Subjective Interval History: SUBJECTIVE: I checked this patient in the late afternoon; after his right foot surgery. He underwent amputation of right hallux; for treatment of osteomyelitis in that area. The patient does not have any significant pain, as he has developed significant peripheral neuropathy. Denies chest pain and difficulty breathing. Denies coughing and wheezing. Denies abdominal pain, nausea and vomiting. He makes good amounts of urine. OBJECTIVE: Skin: Free of rash and discoloration. ENMT: Oral/pharyngeal mucosa is normal in appearance. Eyes: Sclera is white. There is no discharge from eyes. Respiratory: Normal breath sounds; no crackles or wheezes. CV: Heart is regular; no gallop or murmur. GI: Abdomen is soft and not tender. There is no palpable mass or visceromegaly. Neuro: There is no focal deficits. ADDITIONAL DATA: He is on insulin pump. His fingersticks from today were 82 and 66. His BMP from today was normal. 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 Osteomyelitis of the right hallux. The patient underwent amputation of the right hallux today. He is on IV vancomycin and IV Zosyn. We appreciate help from podiatry. Type 2 diabetes mellitus. He will continue insulin pump. His sugar control seems to be very good. Hemoglobin A1c is 7.2%. Hypertension. Under control. We will continue Tenormin and Prinzide. Hyperlipidemia. He is on Crestor. - Exam Vitals: Temp Pulse Resp BP Pulse Ox 98.2 F 58 16 143/66 100 07/18/18 19:25 07/18/18 19:25 07/18/18 19:25 07/18/18 19:25 07/18/18 19:45 Exam: xx - Assessment and Plan (1) Chronic ulcer of great toe of right foot with fat layer exposed Current Visit: Yes Status: Acute (2) Type 2 diabetes mellitus with foot ulcer Current Visit: Yes Status: Acute (3) Osteomyelitis Current Visit: Yes Status: Acute (4) HTN (hypertension) Current Visit: Yes Status: Acute (5) HLD (hyperlipidemia) Current Visit: Yes Status: Acute - Time Spent with Patient Total time spent is greater than 50% in coordination of care (as documented) at patient's floor/unit and/or counseling patient: 25 - 35 minutes Plan of Care Discussed with: patient (and family..) Internal Medicine: Result - Labs CBC & Chem 7: 07/17/18 12:29 07/18/18 04:29 Labs: BMP 07/18/18 04:29 Sodium 137 Potassium 4.2 Chloride 107 Carbon Dioxide 23 BUN 20 Creatinine 0.94 Glucose 142 H Calcium 8.5 L - ABG Interpretation ABG results: PT/INR, D-dimer PT 13.5 Seconds (9.4-12.1) H 07/17/18 12:29 Consult Discharge Plan - Plan Referrals: Chris Garcia DO [Primary Care Provider] - (2) Type 2 diabetes mellitus with foot ulcer Qualifiers: 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: with 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 use Qualified Code(s) : E11.621 - Type 2 diabetes mellitus with foot ulcer; L97.509 - Non-pressure chronic ulcer of other part of unspecified foot with unspecified severity; Z79.4 - [facility] (current) use of insulin (3) Osteomyelitis Qualifiers: Osteomyelitis type: other acute Osteomyelitis location: foot Laterality: right Qualified Code(s): M86.171 - Other acute osteomyelitis, right ankle and foot (4) HTN (hypertension) Qualifiers: Hypertension type: essential hypertension Qualified Code(s): I10 - Essential (primary) hypertension (5) HLD (hyperlipidemia) Qualifiers: Hyperlipidemia type: unspecified Qualified Code(s): E78.5 - Hyperlipidemia, unspecified
[2018-07-18] MEDS: Piperacillin/Tazobactam 3.375 GM in 0.9 % Sodium Chloride Mini Bag 100 ML IVPB SCH (23:20)
[2018-07-18] MEDS: *HR* OxyCODONE/APAP 10/325 TABLET PO PRN (23:47)
[2018-07-19] MEDS ORDERED: Piperacillin/Tazobactam 3.375 GM in 0.9 % Sodium Chloride Mini Bag 100 ML IVPB SCH
[2018-07-19] MEDS: Insulin LISPRO 300 UNITS/3 ML VIAL SQ SCH ×4 (08:51→21:47)
[2018-07-19] MEDS: Isosorbide MONOnitrate (24 HR) 30 MG TAB.ER.24H PO SCH (09:11)
[2018-07-19] MEDS: Cholecalciferol (D-3) 1,000 UNIT TABLET PO SCH (09:12)
[2018-07-19] MEDS: *HR* Ticagrelor 90 MG TABLET PO SCH ×2 (09:12→20:26)
[2018-07-19] MEDS: Lisinopril-HCTZ 20-12.5mg TABLET PO SCH (09:12)
[2018-07-19] MEDS: Multivit/Ca/Min/Fe/FA 1 TAB TABLET PO SCH (09:12)
[2018-07-19] MEDS: Aspirin Enteric Coated 81 MG Tablet PO SCH (09:13)
[2018-07-19] MEDS: Ondansetron ODT 4 MG TAB.RAPDIS SL PRN (09:13)
[2018-07-19] MEDS: Piperacillin/Tazobactam 3.375 GM in 0.9 % Sodium Chloride Mini Bag 100 ML IVPB SCH ×2 (09:13→15:58)
[2018-07-19] MEDS: Famotidine 20 MG TABLET PO SCH ×2 (09:13→15:58)
[2018-07-19] MEDS: Furosemide 40 MG TABLET PO SCH (09:13)
--- NOTE | 2018-07-19 10:13 | Podiatry Progress Note ---
Date of Encounter: 07/19/18 Time of Encounter: 09:20 - Assessment and Plan (1) Osteomyelitis Current Visit: Yes Status: Acute Reviewed with patient surgical procedure and treatment plan. c/w IV antibiotics. get ID consult Saturday. heel weight bearing in surgical shoe. sterile bandage applied today. no bandage change necessary Saturday. Qualifiers: Osteomyelitis type: other acute Osteomyelitis location: foot Laterality: right Qualified Code(s): M86.171 - Other acute osteomyelitis, right ankle and foot Subjective Interval history: 1 day s/p right hallux amputation. says he is doing okay. pain controlled. a little nauseous. denies feeling like he had a fever. Objective - Vital Signs Vital Signs: Vital Signs Temp Pulse Resp BP Pulse Ox 07/19/18 06:49 99.0 F 63 16 143/60 97 07/19/18 03:55 14 07/18/18 23:39 98.5 F 61 16 130/57 96 07/18/18 19:45 100 07/18/18 19:25 98.2 F 58 16 143/66 100 07/18/18 17:33 98.5 F 57 16 133/59 99 07/18/18 16:00 62 18 117/76 94 Intake and Output 07/18/18 07/19/18 07/19/18 23:59 07:59 15:59 Intake Total 240 / 240 100 / 100 Output Total 415 / 415 350 / 350 Balance -175 / -175 100 / 100 -350 / -350 Intake: IV Fluids 100 / 100 Zosyn 3.375 GM In 0.9 % Sodium 100 / 100 Chloride (Mini-Bag +) 100 ML @ 25 mls/hr IVPB Q8HR [facility] Rx#: [id number] Oral 240 / 240 Output: Urine 400 / 400 Estimated Blood Loss 15 15 Catheter 350 / 350 Other: Weight 87.4 kg Blood Glucose* 271 105 Patient Weight 07/19/18 23:59 Weight 87.4 kg - Exam Exam: sutures intact. no wound dehiscence. no fluctuance or purulence. very mild erythema. no pain with palpation. diminished protective sensation which is patient's baseline. - Lab Result Diagrams: 07/17/18 12:29 07/18/18 04:29 Labs: Abnormal lab results RBC 3.57 M/mcL (4.19-5.50) L 07/17/18 12:29 Hgb 11.0 g/dL (12.9-16.9) L 07/17/18 12:29 Hct 33.6 % (37.5-50.1) L 07/17/18 12:29 MPV 9.3 fL (9.4-12.4) L 07/17/18 12:29 ESR 81 mm/hr (0-10) H 07/18/18 04:29 PT 13.5 Seconds (9.4-12.1) H 07/17/18 12:29 Glucose 142 mg/dL (70-105) H 07/18/18 04:29 POC Glucose 105 mg/dL (70-99) H 07/19/18 07:53 Hemoglobin A1c 7.2 % (-5.6) H 07/17/18 13:07 Calcium 8.5 mg/dL (8.6-10.3) L 07/18/18 04:29 Alkaline Phosphatase 155 Units/L (34-104) H 07/17/18 12:29 Globulin 4.5 g/dL (2.4-3.5) H 07/17/18 12:29 Albumin/Globulin Ratio 0.9 (1.1-2.2) L 07/17/18 12:29 Ur Specific [place] > 1.030 (1.010-1.025) H 07/17/18 12:47 Microbiology, Last 48 Hours 07/18/18 16:50 Surgical Biopsy Culture - Preliminary Right Foot 07/18/18 16:50 Surgical Biopsy Culture - Preliminary Right Foot Consult Discharge Plan - Plan Referrals: Chris Garcia DO [Primary Care Provider] -
[2018-07-19] MEDS: Acetaminophen 325 MG TABLET PO PRN ×2 (12:49→20:25)
[2018-07-19] MEDS: Subcutaneous Insulin Pump [T:Slim] SQ SCH (15:54)
--- NOTE | 2018-07-19 23:36 | Internal Med Progress Note ---
Hospitalist Progress Note - Encounter Date of Encounter: 07/19/18 Time of Encounter: 19:00 - Subjective Interval History: SUBJECTIVE: The patient complains of off and on nausea but not vomiting. I ordered him ODT Zofran; it helps. Denies abdominal pain. He seems to have normal bowel movements. Denies chest pain, dyspnea, coughing and wheezing. He has normal urination. The pain in his right foot is under control. OBJECTIVE: Skin: Free of rash and discoloration. ENMT: Oral/pharyngeal mucosa is normal in appearance. Eyes: Sclera is white. There is no discharge from eyes. Respiratory: Normal breath sounds; no crackles or wheezes. CV: Heart is regular; no gallop or murmur. GI: Abdomen is soft and not tender. There is no palpable mass or visceromegaly. Neuro: There is no focal deficits. ADDITIONAL DATA: He is on insulin pump. His fingersticks from today were 82 and 66. His BMP from today was normal. 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 Osteomyelitis of the right hallux. The patient underwent amputation of the right hallux today. He is on IV vancomycin and IV Zosyn. Waiting for results from cultures. We appreciate help from podiatry. Type 2 diabetes mellitus. He will continue insulin pump. His sugar control seems to be very good. Hemoglobin A1c is 7.2%. Hypertension. Under control. We will continue Tenormin and Prinzide. Hyperlipidemia. He is on Crestor. - Exam Vitals: Temp Pulse Resp BP Pulse Ox 98.4 F 80 17 136/63 93 07/19/18 22:54 07/19/18 22:54 07/19/18 22:54 07/19/18 22:54 07/19/18 22:54 Exam: xx - Assessment and Plan (1) Chronic ulcer of great toe of right foot with fat layer exposed Current Visit: No Status: Acute (2) Type 2 diabetes mellitus with foot ulcer Current Visit: No Status: Acute (3) Osteomyelitis Current Visit: Yes Status: Acute (4) HTN (hypertension) Current Visit: Yes Status: Acute (5) HLD (hyperlipidemia) Current Visit: Yes Status: Acute - Time Spent with Patient Total time spent is greater than 50% in coordination of care (as documented) at patient's floor/unit and/or counseling patient: 25 - 35 minutes Plan of Care Discussed with: patient Internal Medicine: Result - Labs CBC & Chem 7: 07/17/18 12:29 07/18/18 04:29 - ABG Interpretation ABG results: PT/INR, D-dimer PT 13.5 Seconds (9.4-12.1) H 07/17/18 12:29 Consult Discharge Plan - Plan Referrals: Chris Garcia DO [Primary Care Provider] - (2) Type 2 diabetes mellitus with foot ulcer Qualifiers: Diabetes mellitus senior living insulin use: with buttermaker continuous churn use Qualified Code(s) : E11.621 - Type 2 diabetes mellitus with foot ulcer; L97.509 - Non-pressure chronic ulcer of other part of unspecified foot with unspecified severity; Z79.4 - termite control representative (current) use of insulin (3) Osteomyelitis Qualifiers: Osteomyelitis type: other acute Osteomyelitis location: foot Laterality: right Qualified Code(s): M86.171 - Other acute osteomyelitis, right ankle and foot (4) HTN (hypertension) Qualifiers: Hypertension type: essential hypertension Qualified Code(s): I10 - Essential (primary) hypertension (5) HLD (hyperlipidemia) Qualifiers: Hyperlipidemia type: unspecified Qualified Code(s): E78.5 - Hyperlipidemia, unspecified
[2018-07-20] MEDS ORDERED: Piperacillin/Tazobactam 3.375 GM VIAL ONE (00:30)
[2018-07-20] MEDS: Piperacillin/Tazobactam 3.375 GM in 0.9 % Sodium Chloride Mini Bag 100 ML IVPB SCH ×3 (00:34→16:31)
[2018-07-20] MEDS: Insulin LISPRO 300 UNITS/3 ML VIAL SQ SCH ×4 (07:15→20:52)
[2018-07-20 07:21] LABS: Basophils # 0.1 K/mcL (0.0-0.2); Basophils % 0.4 %; Eosinophils # 0.1 K/mcL (0.0-0.6); Eosinophils % 0.9 %; Immature Granulocytes % 0.3 % (0-4); Lymphocytes # 2.2 K/mcL (0.6-4.6); Lymphocytes % 17.9 %; Mean Corpuscular HGB Conc 32.3 g/dL (31.6-35.5); Mean Corpuscular Hemoglobin 30.3 pg (28.0-33.3); Mean Corpuscular Volume 93.9 fL (83.0-100.0); Mean Platelet Volume 9.5 fL (9.4-12.4); Monocytes # 1.3 K/mcL (0.0-1.3); Monocytes % 10.6 %; Neutrophils # 8.6 K/mcL (1.6-8.9); Platelet Count 239 K/mcL (140-400); Red Cell Distribution Width 12.8 % (11.5-14.5); Segmented Neutrophils % 69.9 %
[2018-07-20 07:43] LABS: BUN/Creatinine Ratio 17 (6-26); Blood Urea Nitrogen 23 mg/dL (8-23); Calcium 8.8 mg/dL (8.6-10.3); Carbon Dioxide 23 mEq/L (23-29); Chloride 107 mEq/L (98-107); Glucose 102 mg/dL (70-105); Magnesium 2.2 mg/dL (1.6-2.6); Osmolality,Calculated 290 (280-300); Potassium 3.8 mEq/L (3.5-5.1); Sodium 138 mEq/L (136-145); eGFR For Non-African Americans 51 (> 60)
[2018-07-20] MEDS: Lisinopril-HCTZ 20-12.5mg TABLET PO SCH (09:12)
[2018-07-20] MEDS: Cholecalciferol (D-3) 1,000 UNIT TABLET PO SCH (09:13)
[2018-07-20] MEDS: *HR* Ticagrelor 90 MG TABLET PO SCH ×2 (09:13→20:46)
[2018-07-20] MEDS: Furosemide 40 MG TABLET PO SCH (09:13)
[2018-07-20] MEDS: Isosorbide MONOnitrate (24 HR) 30 MG TAB.ER.24H PO SCH (09:13)
[2018-07-20] MEDS: Aspirin Enteric Coated 81 MG Tablet PO SCH (09:13)
[2018-07-20] MEDS: Multivit/Ca/Min/Fe/FA 1 TAB TABLET PO SCH (09:13)
[2018-07-20] MEDS: Famotidine 20 MG TABLET PO SCH ×2 (09:13→20:46)
[2018-07-20] MEDS ORDERED: 0.9 % Sodium Chloride w KCl 20 MEQ/1,000 ML MLS IVC SCH (11:00)
[2018-07-20] MEDS: Cholestyramine 4 GM POWD.PACK PO SCH ×2 (12:38→16:30)
[2018-07-20] MEDS: Acetaminophen 325 MG TABLET PO PRN (16:30)
[2018-07-20] MEDS: Subcutaneous Insulin Pump [T:Slim] SQ SCH (16:30)
[2018-07-20] MEDS: *HR* OxyCODONE/APAP 10/325 TABLET PO PRN (20:47)
[2018-07-21] MEDS: Piperacillin/Tazobactam 3.375 GM in 0.9 % Sodium Chloride Mini Bag 100 ML IVPB SCH ×3 (00:23→17:43)
[2018-07-21 00:36] LABS: Hematocrit 24.7 % (37.5-50.1)
[2018-07-21 00:37] LABS: Hemoglobin 8.2 g/dL (12.9-16.9)
[2018-07-21 00:50] LABS: Calcium 8.1 mg/dL (8.6-10.3); Magnesium 2.1 mg/dL (1.6-2.6); Potassium 3.7 mEq/L (3.5-5.1)
[2018-07-21 03:40] LABS: Basophils % 0.4 %; Eosinophils # 0.3 K/mcL (0.0-0.6); Eosinophils % 2.3 %; Hematocrit 27.1 % (37.5-50.1); Hemoglobin 8.7 g/dL (12.9-16.9); Immature Granulocytes % 0.5 % (0-4); Mean Corpuscular HGB Conc 32.1 g/dL (31.6-35.5); Mean Corpuscular Hemoglobin 30.5 pg (28.0-33.3); Mean Corpuscular Volume 95.1 fL (83.0-100.0); Mean Platelet Volume 9.8 fL (9.4-12.4); Monocytes # 1.2 K/mcL (0.0-1.3); Monocytes % 11.1 %; Neutrophils # 7.5 K/mcL (1.6-8.9); Platelet Count 215 K/mcL (140-400); Red Blood Count 2.85 M/mcL (4.19-5.50); Segmented Neutrophils % 67.7 %
[2018-07-21] MEDS: Insulin LISPRO 300 UNITS/3 ML VIAL SQ SCH ×5 (07:13→22:07)
[2018-07-21] MEDS: Famotidine 20 MG TABLET PO SCH ×2 (09:16→20:03)
[2018-07-21] MEDS: Aspirin Enteric Coated 81 MG Tablet PO SCH (09:16)
[2018-07-21] MEDS: Isosorbide MONOnitrate (24 HR) 30 MG TAB.ER.24H PO SCH (09:16)
[2018-07-21] MEDS: Furosemide 40 MG TABLET PO SCH (09:16)
[2018-07-21] MEDS: Multivit/Ca/Min/Fe/FA 1 TAB TABLET PO SCH (09:16)
[2018-07-21] MEDS: Cholestyramine 4 GM POWD.PACK PO SCH ×2 (09:16→17:41)
[2018-07-21] MEDS: Lisinopril-HCTZ 20-12.5mg TABLET PO SCH (09:17)
[2018-07-21] MEDS: *HR* Ticagrelor 90 MG TABLET PO SCH ×2 (09:17→20:03)
[2018-07-21] MEDS: Cholecalciferol (D-3) 1,000 UNIT TABLET PO SCH (09:17)
[2018-07-21] MEDS: *HR* OxyCODONE/APAP 10/325 TABLET PO PRN ×2 (09:17→20:07)
--- NOTE | 2018-07-21 12:49 | Podiatry Progress Note ---
Date of Encounter: 07/21/18 Time of Encounter: 12:47 - Assessment and Plan (1) Osteomyelitis Current Visit: Yes Status: Acute POD #2. Incision well approximated. Edema and erythema noted. Dressing changed with tefla, dry gauze, and kerlex. Can weight bear with surgical shoe. ATB to be managed by ID. Appreciate input. Qualifiers: Osteomyelitis type: other acute Osteomyelitis location: foot Laterality: right Qualified Code(s): M86.171 - Other acute osteomyelitis, right ankle and foot Subjective Principal diagnosis: Osteomylitis Interval history: Patient sitting in bed preparing to eat lunch. at bedside. Patient denies any pain to right lower extremity. Denies any fever or chills. Objective - Vital Signs Vital Signs: Vital Signs Temp Pulse Resp BP Pulse Ox 07/21/18 11:12 98.2 F 74 16 156/54 99 07/21/18 07:21 98.3 F 70 14 138/65 98 07/21/18 04:37 98.1 F 82 17 151/69 94 07/21/18 00:20 98.5 F 67 16 106/57 93 07/20/18 20:08 98.9 F 66 16 108/48 97 07/20/18 16:49 98.6 F 68 16 144/65 97 Intake and Output 07/20/18 07/21/18 07/21/18 23:59 07:59 15:59 Intake Total 590 / 590 100 / 100 240 / 240 Output Total 500 / 500 200 / 200 Balance 590 / 590 -400 / -400 40 / 40 Intake: IV Fluids 350 / 350 100 / 100 Zosyn 3.375 GM In 0.9 % Sodium 100 / 100 100 / 100 Chloride (Mini-Bag +) 100 ML @ 25 mls/hr IVPB Q8HR [facility] Rx#: [id number] Vancocin 1,250 MG In 0.9 % 250 / 250 Sodium Chloride 250 ML @ 167 mls/hr IVPB Q12H [facility] Rx#: [id number] Oral 240 / 240 240 / 240 Output: Urine 500 / 500 200 / 200 Other: Meal Dinner Breakfast Percent of Meal Consumed 100% 100% Stool Size Large Stool Consistency liquid soft Stool Color Brown # Voids 1 Blood Glucose* 275 82 104 - Exam Incision: Present: healing, red, swollen - Lab Result Diagrams: 07/21/18 03:05 07/21/18 00:16 Labs: Abnormal lab results RBC 2.85 M/mcL (4.19-5.50) L 07/21/18 03:05 Hgb 8.7 g/dL (12.9-16.9) L 07/21/18 03:05 Hct 27.1 % (37.5-50.1) L 07/21/18 03:05 ESR 81 mm/hr (0-10) H 07/18/18 04:29 PT 13.5 Seconds (9.4-12.1) H 07/17/18 12:29 Chloride 108 mEq/L (98-107) H 07/21/18 00:16 BUN 27 mg/dL (8-23) H 07/21/18 00:16 Creatinine 1.47 mg/dL (0.70-1.30) H 07/21/18 00:16 Est GFR ( Amer) 56 (> 60) L 07/21/18 00:16 Est GFR (Non-Af Amer) 46 (> 60) L 07/21/18 00:16 POC Glucose 104 mg/dL (70-99) H 07/21/18 11:10 Hemoglobin A1c 7.2 % (-5.6) H 07/17/18 13:07 Calcium 8.1 mg/dL (8.6-10.3) L 07/21/18 00:16 Alkaline Phosphatase 155 Units/L (34-104) H 07/17/18 12:29 Globulin 4.5 g/dL (2.4-3.5) H 07/17/18 12:29 Albumin/Globulin Ratio 0.9 (1.1-2.2) L 07/17/18 12:29 Ur Specific [place] > 1.030 (1.010-1.025) H 07/17/18 12:47 Vancomycin Trough 22 mcg/mL (5-10) H 07/21/18 00:16 Microbiology, Last 48 Hours 07/18/18 16:50 Surgical Biopsy Culture - Preliminary Right Foot Methicillin Resistant S.aureus Proteus mirabilis Strep agalactiae - (Group B) 07/18/18 16:50 Surgical Biopsy Culture - Preliminary Right Foot Gram Positive Cocci Gram Negative Eladio Strep agalactiae - (Group B) Consult Discharge Plan - Plan Referrals: Chris Garcia DO [Primary Care Provider] -
--- NOTE | 2018-07-21 14:00 | Infectious Disease Consult ---
Date of Encounter: 07/21/18 Time of Encounter: 13:46 Assessment and Plan (1) Osteomyelitis Status: Acute Assessment and plan: Of the left hallux Causative organism MRSA and Proteus mirabilis and Streptococcus agalactiae Status post amputation of the right hallux on 07/18/2018 Pathology pending Patient will need 6 weeks worth of IV antibiotics. The choice of antibiotics based on the kidney function and how the patient tolerates it. For now we will continue vancomycin area We will DC Zosyn start Rocephin We will add oral Flagyl until the anaerobic culture finalized Patient will need a PICC line placement Monitor kidney function closely and for drug toxicity While on antibiotic will need weekly CBC, BMP, ESR, CRP and vancomycin trough Qualifiers: Osteomyelitis type: other acute Osteomyelitis location: foot Laterality: right Qualified Code(s): M86.171 - Other acute osteomyelitis, right ankle and foot (2) Acute kidney injury Status: Acute Assessment and plan: Could be secondary to antibiotic use. If her creatinine continues to creep up we will consider switching to daptomycin , cefepime and Flagyl combination In the meantime we will continue vancomycin but will vancomycin trough closer to 15 even a little bit lower is fine but not 22. We will ask pharmacy to help with the dosing (3) Vancomycin overdose of undetermined intent Status: Acute Qualifiers: Encounter type: initial encounter Qualified Code(s): T36.8X4A - Poisoning by other systemic antibiotics, undetermined, initial encounter (4) Diabetic infection of right foot Status: Acute Assessment and plan: Causative organism MRSA and Proteus mirabilis and Streptococcus agalactiae Status post amputation of the right hallux on 07/18/2018 Pathology pending (5) Type 2 diabetes mellitus with foot ulcer Status: Acute Qualifiers: Diabetes mellitus intermediate manager insulin use: with intermediate manager use Qualified Code( s): E11.621 - Type 2 diabetes mellitus with foot ulcer; L97.509 - Non-pressure chronic ulcer of other part of unspecified foot with unspecified severity; Z79.4 - buttermaker (current) use of insulin Infectious Disease HPI - Data of Consult Patient: new to practice Consult date: 07/21/18 Requesting Physician: Alli Au Primary Care Provider: Chris Garcia DO - Consult Narrative Reason for consult: Osteomyelitis right great toe amputation History of present illness: Mr. Lagunas is a 77 year old male Patient is a 77-year-old male who presented to [place] on 07/17/2018 with nonhealing diabetic ulcer of the right great toe. We are consulted today on for osteomyelitis of the right great toe status post amputation and antibiotics recommendation. Patient 77-year-old male with history of diabetes mellitus type 2 on insulin pump for about 10 years presented to the hospital after having a blister on the tip of the right great toe 4 weeks prior to admission. This progressed to become a diabetic foot ulcer. Since admission patient has been afebrile, no tachycardia and hemodynamically stable. Presenting labs revealed WBC of 10.4 with normal differential. Chemistry revealed elevated BUN 30 creatinine 1.2. Urine culture was negative. Patient was also checked for C. difficile and came back negative. ESR was elevated at 81 patient underwent a amputation of the right hallux on 07/18/[address] Garcia. Intra-Op cultures are growing MRSA S:doxy, bactrim, Proteus mirabilis pansensitive with I:imipenem and group B streptococcus. Pathology report is pending. We were asked to evaluate the patient and make further recommendations. Currently patient laying in bed and appears comfortable awake alert oriented. Review of systems unremarkable. daughter and granddaughter both at bedside. Patient denies any headache. No chest pain or shortness of breath. No nausea or vomiting. No diarrhea or constipation. No urinary symptoms. CC: Alli Au Past Med Surg Social Fam HX - Past Medical History Medical history: arthritis, cancer, CHF, coronary artery disease, diabetes, GERD , hyperlipidemia, hypertension, myocardial infarction, RA Additional medical history: PROSTATE CANCER, parkinsons, diverticulosis, hemmorhoids, pulmonary nodule, urinary ED, onychomycosis, paresthesia, seborrheic dermatitis, actinic keratosis, vit D def, basal cell cancer - nose Psychiatric history: no psych history - Past Surgical History Surgical History: angioplasty/stent, cancer surgery, orthopedic, other, prostatectomy, other Additional surgical history: TONSILLECTOMY, COLONOSCOPY, R foot toe amputation, heart stent, hemhorroid, colonoscopy/EGD, R foot sx, anal fissure, heart cath, Mohs sx - BCC left nose - Social History Smoking Status: Never smoker Smokeless Tobacco Status: No Alcohol use: none Drug use: none - Family History Mother Family Member Ethnicity: Non- Living Status: Hx Family Cancer: Yes Infectious Disease-CN:Meds Aspirin [Lo-Dose Aspirin EC] 81 mg PO DAILY 11/07/17 [History] Atenolol [Tenormin] 25 mg PO DAILY 11/07/17 [History] Cholecalciferol (D-3) [Vitamin D] 2,000 unit PO DAILY 11/07/17 [History] Escitalopram [Lexapro] 10 mg PO DAILY 11/07/17 [History] Furosemide [Lasix] 40 mg PO DAILY 11/07/17 [History] Isosorbide MONOnitrate (24 HR) [Imdur] 30 mg PO DAILY 11/07/17 [History] Lisinopril-HCTZ 20-12.5 [Prinzide 20-12.5] 1 tab PO DAILY 11/07/17 [History] Multivitamin [One Daily Essential] 1 tab PO DAILY 11/07/17 [History] Nitroglycerin [Nitrostat] 0.4 mg SL Q5M PRN 11/07/17 [History] Potassium Gluconate 198 mg PO DAILY 11/07/17 [History] Ranitidine HCl [Heartburn Relief] 150 mg PO BID 11/07/17 [History] Subcutaneous Insulin Pump [T:Slim] 80 unit MC AD 11/07/17 [History] Ticagrelor [Brilinta] 90 mg PO BID 11/07/17 [History] Rosuvastatin Calcium [Crestor] 10 mg PO HS 07/17/18 [History] 3 Allergy/AdvReac Type Severity Reaction Status Date / Time clopidogrel [From Plavix] Allergy Hives Verified 07/17/18 13:06 Iodinated Contrast- Oral and Allergy Hives Verified 07/17/18 13:06 IV Dye meperidine [From Demerol] Allergy Hives Verified 07/17/18 13:06 shellfish derived Allergy Hives Verified 07/17/18 13:06 Review of systems: 10 point review of systems done, negative other for what is mentioned in history of present illness Exam - Constitutional Vitals: Temp Pulse Resp BP Pulse Ox 98.2 F 74 16 156/54 99 07/21/18 11:12 07/21/18 11:12 07/21/18 11:12 07/21/18 11:12 07/21/18 11:12 General appearance: no acute distress, no febrile - Head Head exam: Present: atraumatic, normocephalic - Eye Eye exam: Present: EOMI, PERRL, sclera anicteric - ENT ENT exam: Present: mucous membranes moist Additional comments: No oral thrush - Neck Neck exam: Present: full ROM. Absent: meningismus - Respiratory Respiratory exam: Present: CTAB. Absent: wheezes - Cardiovascular Cardiovascular exam: Present: RRR, +S1, +S2 - GI/Abdominal GI/Abdominal exam: Present: normal bowel sounds, soft. Absent: tenderness - Extremities Exam Additional comments: Right foot surgically wrapped. But podiatry did send the pictures earlier of the lesion. Otherwise adequate perfusion. No other lesions. - Neurological Exam Neurological exam: Present: alert, oriented X3 - Skin Skin exam: Present: normal color. Absent: rash Infectious Disease CN: Results - Labs CBC & Chem 7: 07/21/18 03:05 07/21/18 00:16 Cultures: Cultures 07/18/18 16:50 Surgical Biopsy Culture - Final Right Foot Methicillin Resistant S.aureus Proteus mirabilis Strep agalactiae - (Group B) 07/18/18 16:50 Surgical Biopsy Culture - Preliminary Right Foot Methicillin Resistant S.aureus Proteus mirabilis Strep agalactiae - (Group B) Serology: Serology 07/20/18 Range/Units 15:38 Stl C. diff Tox B Gene Negative (Negative) Consult Discharge Plan - Plan Referrals: Chris Garcia DO [Primary Care Provider] -
[2018-07-21] MEDS: Ondansetron ODT 4 MG TAB.RAPDIS SL PRN (17:40)
[2018-07-21] MEDS: Subcutaneous Insulin Pump [T:Slim] SQ SCH (17:44)
[2018-07-21 23:02] LABS: Hematocrit 24.8 % (37.5-50.1)
--- NOTE | 2018-07-22 00:30 | Internal Med Progress Note ---
Hospitalist Progress Note - Encounter Date of Encounter: 07/20/18 Time of Encounter: 19:00 - Subjective Interval History: SUBJECTIVE: The patient complains of loose bowel movements; at a few of them today morning and afternoon. He also complains of off and on nausea (but not vomiting); ODT Zofran helps. Denies abdominal pain. Denies chest pain and difficulty breathing. Denies coughing and wheezing. He has normal urination. The pain in his right foot is under control. OBJECTIVE: Skin: Free of rash and discoloration. ENMT: Oral/pharyngeal mucosa is normal in appearance. Eyes: Sclera is white. There is no discharge from eyes. Respiratory: Normal breath sounds; no crackles or wheezes. CV: Heart is regular; no gallop or murmur. GI: Abdomen is soft and not tender. There is no palpable mass or visceromegaly. Neuro: There is no focal deficits. ADDITIONAL DATA: He is on insulin pump. His glucose control is excellent. Hemoglobin is 10.0; 11.03 days ago. WBC is 12.2 thousand; 10.4 thousand 3 days ago. Creatinine is 1.34; 1.20 three days ago. 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 Osteomyelitis of the right hallux. 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 He is on IV vancomycin and IV Zosyn. Waiting for results from wound /blood cultures. We appreciate help from podiatry. Type 2 diabetes mellitus. He will continue insulin pump. His sugar control seems to be very good. Hemoglobin A1c is 7.2%. Hypertension. Under control. We will continue Tenormin and Prinzide. Hyperlipidemia. He is on Crestor. Nose bowel movements with off and on nausea but not vomiting. We will check his stool for C. difficile infection. We will continue ODT Zofran. I will start him on oral Questran. He got 4 mg of Imodium. - Exam Vitals: Temp Pulse Resp BP Pulse Ox 97.9 F 68 18 114/54 94 07/21/18 23:38 07/21/18 23:38 07/21/18 23:38 07/21/18 23:38 07/21/18 23:38 Exam: xx - Assessment and Plan (1) Chronic ulcer of great toe of right foot with fat layer exposed Current Visit: No Status: Acute (2) Type 2 diabetes mellitus with foot ulcer Current Visit: No Status: Acute (3) Osteomyelitis Current Visit: Yes Status: Acute (4) HTN (hypertension) Current Visit: Yes Status: Acute (5) HLD (hyperlipidemia) Current Visit: Yes Status: Acute - Time Spent with Patient Total time spent is greater than 50% in coordination of care (as documented) at patient's floor/unit and/or counseling patient: 25 - 35 minutes Plan of Care Discussed with: patient Internal Medicine: Result - Labs CBC & Chem 7: 07/21/18 22:51 07/21/18 00:16 Labs: Short CBC 07/21/18 07/21/18 07/21/18 Range/Units 00:16 03:05 22:51 WBC 11.0 (4.3-11.1) K/mcL Hgb 8.2 L D 8.7 L 8.0 L (12.9-16.9) g/dL Hct 24.7 L 27.1 L 24.8 L (37.5-50.1) % Plt Count 215 (140-400) K/mcL Neutrophils # 7.5 (1.6-8.9) K/mcL BMP 07/21/18 00:16 Sodium 136 Potassium 3.7 Chloride 108 H Carbon Dioxide 24 BUN 27 H Creatinine 1.47 H Glucose 95 Calcium 8.1 L - ABG Interpretation ABG results: PT/INR, D-dimer PT 13.5 Seconds (9.4-12.1) H 07/17/18 12:29 Consult Discharge Plan - Plan Referrals: Chris Garcia DO [Primary Care Provider] - (2) Type 2 diabetes mellitus with foot ulcer Qualifiers: Diabetes mellitus halfway insulin use: with halfway use Qualified Code(s) : E11.621 - Type 2 diabetes mellitus with foot ulcer; L97.509 - Non-pressure chronic ulcer of other part of unspecified foot with unspecified severity; Z79.4 - technician terminal and repeater (current) use of insulin (3) Osteomyelitis Qualifiers: Osteomyelitis type: other acute Osteomyelitis location: foot Laterality: right Qualified Code(s): M86.171 - Other acute osteomyelitis, right ankle and foot (4) HTN (hypertension) Qualifiers: Hypertension type: essential hypertension Qualified Code(s): I10 - Essential (primary) hypertension (5) HLD (hyperlipidemia) Qualifiers: Hyperlipidemia type: unspecified Qualified Code(s): E78.5 - Hyperlipidemia, unspecified
--- NOTE | 2018-07-22 00:46 | Internal Med Progress Note ---
Hospitalist Progress Note - Encounter Date of Encounter: 07/21/18 Time of Encounter: 19:00 - Subjective Interval History: SUBJECTIVE: The patient continues to have loose bowel movements; a few of them today morning and afternoon. He also complains of off and on nausea (but not vomiting ); ODT Zofran helps. Denies abdominal pain. Denies chest pain and difficulty breathing. Denies coughing and wheezing. He has normal urination. The pain in his right foot is under control. OBJECTIVE: Skin: Free of rash and discoloration. ENMT: Oral/pharyngeal mucosa is normal in appearance. Eyes: Sclera is white. There is no discharge from eyes. Respiratory: Normal breath sounds; no crackles or wheezes. CV: Heart is regular; no gallop or murmur. GI: Abdomen is soft and not tender. There is no palpable mass or visceromegaly. Neuro: There is no focal deficits. ADDITIONAL DATA: He is on insulin pump. His glucose levels are pretty good. Hemoglobin is 8.2; 10.0 yesterday. WBCs 11.0 thousand; 12.2 thousand yesterday. Creatinine is 1.47; 1.34 yesterday. 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 Osteomyelitis of the right hallux. 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 He is on IV vancomycin and IV Zosyn. Wound culture is growing MRSA and Proteus mirabilis. Infectious diseases is consulted. Type 2 diabetes mellitus. He will continue insulin pump. His sugar control seems to be very good. Hemoglobin A1c is 7.2%. Hypertension. Under control. We will continue Tenormin and Prinzide. Hyperlipidemia. He is on Crestor. Loose bowel movements with off and on nausea but not vomiting. Stool testing for C. difficile is negative. We will continue ODT Zofran. I will increase his dose of Questran. This is likely antibiotics associated diarrhea. - Exam Vitals: Temp Pulse Resp BP Pulse Ox 97.9 F 68 18 114/54 94 07/21/18 23:38 07/21/18 23:38 07/21/18 23:38 07/21/18 23:38 07/21/18 23:38 Exam: xx - Assessment and Plan (1) Chronic ulcer of great toe of right foot with fat layer exposed Current Visit: No Status: Acute (2) Type 2 diabetes mellitus with foot ulcer Current Visit: No Status: Acute (3) Osteomyelitis Current Visit: Yes Status: Acute (4) Acute kidney injury Current Visit: Yes Status: Acute (5) HTN (hypertension) Current Visit: Yes Status: Acute (6) HLD (hyperlipidemia) Current Visit: Yes Status: Acute - Time Spent with Patient Total time spent is greater than 50% in coordination of care (as documented) at patient's floor/unit and/or counseling patient: 25 - 35 minutes Plan of Care Discussed with: patient Internal Medicine: Result - Labs CBC & Chem 7: 07/21/18 22:51 07/21/18 00:16 Labs: Short CBC 07/21/18 07/21/18 Range/Units 03:05 22:51 WBC 11.0 (4.3-11.1) K/mcL Hgb 8.7 L 8.0 L (12.9-16.9) g/dL Hct 27.1 L 24.8 L (37.5-50.1) % Plt Count 215 (140-400) K/mcL Neutrophils # 7.5 (1.6-8.9) K/mcL BMP 07/21/18 00:16 Sodium 136 Potassium 3.7 Chloride 108 H Carbon Dioxide 24 BUN 27 H Creatinine 1.47 H Glucose 95 Calcium 8.1 L - ABG Interpretation ABG results: PT/INR, D-dimer PT 13.5 Seconds (9.4-12.1) H 07/17/18 12:29 Consult Discharge Plan - Plan Referrals: Chris Garcia DO [Primary Care Provider] - (2) Type 2 diabetes mellitus with foot ulcer Qualifiers: Diabetes mellitus longterm insulin use: with longterm use Qualified Code(s) : E11.621 - Type 2 diabetes mellitus with foot ulcer; L97.509 - Non-pressure chronic ulcer of other part of unspecified foot with unspecified severity; Z79.4 - intermediate accountant (current) use of insulin (3) Osteomyelitis Qualifiers: Osteomyelitis type: other acute Osteomyelitis location: foot Laterality: right Qualified Code(s): M86.171 - Other acute osteomyelitis, right ankle and foot (5) HTN (hypertension) Qualifiers: Hypertension type: essential hypertension Qualified Code(s): I10 - Essential (primary) hypertension (6) HLD (hyperlipidemia) Qualifiers: Hyperlipidemia type: unspecified Qualified Code(s): E78.5 - Hyperlipidemia, unspecified
[2018-07-22] MEDS ORDERED: 0.9 % Sodium Chloride w KCl 20 MEQ/1,000 ML MLS IVC SCH (01:00)
[2018-07-22] MEDS: Piperacillin/Tazobactam 3.375 GM in 0.9 % Sodium Chloride Mini Bag 100 ML IVPB SCH ×2 (02:21→09:08)
[2018-07-22 06:04] LABS: Hematocrit 29.5 % (37.5-50.1); Hemoglobin 9.3 g/dL (12.9-16.9)
[2018-07-22 06:21] LABS: BUN/Creatinine Ratio 22 (6-26); Blood Urea Nitrogen 30 mg/dL (8-23); Calcium 8.4 mg/dL (8.6-10.3); Carbon Dioxide 21 mEq/L (23-29); Chloride 107 mEq/L (98-107); Glucose 215 mg/dL (70-105); Osmolality,Calculated 293 (280-300); Potassium 4.1 mEq/L (3.5-5.1); Sodium 135 mEq/L (136-145); eGFR For Non-African Americans 51 (> 60)
[2018-07-22] MEDS ORDERED: Cholestyramine 4 GM POWD.PACK PO SCH (09:00)
[2018-07-22] MEDS: *HR* HYDROcodone/Acet 5/325 mg TABLET PO PRN ×2 (09:07→18:14)
[2018-07-22] MEDS: Famotidine 20 MG TABLET PO SCH ×2 (09:07→20:00)
[2018-07-22] MEDS: Lisinopril-HCTZ 20-12.5mg TABLET PO SCH (09:07)
[2018-07-22] MEDS: Cholecalciferol (D-3) 1,000 UNIT TABLET PO SCH (09:07)
[2018-07-22] MEDS: Furosemide 40 MG TABLET PO SCH (09:07)
[2018-07-22] MEDS: Multivit/Ca/Min/Fe/FA 1 TAB TABLET PO SCH (09:07)
[2018-07-22] MEDS: *HR* Ticagrelor 90 MG TABLET PO SCH ×2 (09:08→20:00)
[2018-07-22] MEDS: Aspirin Enteric Coated 81 MG Tablet PO SCH (09:08)
[2018-07-22] MEDS: Isosorbide MONOnitrate (24 HR) 30 MG TAB.ER.24H PO SCH (09:08)
[2018-07-22] MEDS: Insulin LISPRO 300 UNITS/3 ML VIAL SQ SCH ×4 (09:10→20:01)
[2018-07-22 10:52] LABS: Hematocrit 28.7 % (37.5-50.1); Hemoglobin 9.5 g/dL (12.9-16.9)
[2018-07-22] MEDS: Cholestyramine 4 GM POWD.PACK PO SCH ×3 (10:54→21:19)
--- NOTE | 2018-07-22 11:56 | Internal Med Progress Note ---
Hospitalist Progress Note - Encounter Date of Encounter: 07/22/18 Time of Encounter: 11:48 - Subjective Interval History: Patient seen and examined this morning. Lying in bed in no disteress. Denies any pain, fever, chills, N/V. some loose stool and nauseas. No abdominal pain, sob or cp. - Exam Vitals: Temp Pulse Resp BP Pulse Ox 98.6 F 73 17 127/51 96 07/22/18 11:01 07/22/18 11:01 07/22/18 11:01 07/22/18 11:01 07/22/18 11:01 Exam: s ENMT: mucosa moist. No lymphadenopathy. Eyes: Sclera is white. There is no discharge from eyes. Respiratory: Normal breath sounds; no crackles or wheezes. CV: Heart is regular; no gallop or murmur. GI: Abdomen is soft and not tender. There is no palpable mass or orgenomegaly. Has inulin pump. Ext: Rt foot with dressing. Mild feet swelling. Neuro: There is no focal deficits. Normal sensation both legs. Skin: mild petechial rash on lower extremitie - Assessment and Plan (1) Osteomyelitis Current Visit: Yes Status: Acute (2) Chronic ulcer of great toe of right foot with fat layer exposed Current Visit: No Status: Acute (3) Type 2 diabetes mellitus with foot ulcer Current Visit: No Status: Acute (4) HLD (hyperlipidemia) Current Visit: Yes Status: Acute (5) HTN (hypertension) Current Visit: Yes Status: Acute (6) Acute kidney injury Current Visit: Yes Status: Acute - Summary of Assessment and Plan Summary of Assessment and Plan: Diabetic foot ulcer of the right hallux Osteomyelitis - s/p amputation of the right hallux 07/18/18. He is on IV vancomycin and IV Zosyn. Wound culture is growing MRSA and Proteus mirabilis. Infectious diseases is consulted. - Causative organism MRSA and Proteus mirabilis and Streptococcus agalactiae. Path pending - ID following. C/w Vancomycin. zosyn changed to rocephin. Also started on flagyl till anaerobic cultures back. Will need IV abx 6 weeks of IV antibiotics per ID as well as weekly CBC, BMP, ESR, CRP and vancomycin trough - The choice of antibiotics based on the kidney function. TOMASZ - Picc line ordered TOMASZ - Reservation Agent of 1.36 from 0.94 at presentation. - Possibly related to antibiotics. Many need to change antibiotic if not improving. - Start gentle hydration with NS at 75. - follow urine studies. Type 2 diabetes mellitus - c/w insulin pump and accuchecks - Hemoglobin A1c is 7.2%. Hypertension - c/w atenolol, . Will hold lisinopril/hctz and lasix given TOMASZ. Monitor BP for now. Hyperlipidemia - c/w Crestor. Loose bowel movements - Stool testing for C. difficile is negative. - likely antibiotics associated diarrhea. - Time Spent with Patient Total time spent is greater than 50% in coordination of care (as documented) at patient's floor/unit and/or counseling patient: Internal Medicine: Result - Labs CBC & Chem 7: 07/22/18 10:38 07/22/18 05:19 Labs: Short CBC 07/21/18 07/22/18 07/22/18 Range/Units 22:51 05:19 10:38 Hgb 8.0 L 9.3 L 9.5 L (12.9-16.9) g/dL Hct 24.8 L 29.5 L 28.7 L (37.5-50.1) % BMP 07/22/18 05:19 Sodium 135 L Potassium 4.1 Chloride 107 Carbon Dioxide 21 L BUN 30 H Creatinine 1.36 H Glucose 215 H Calcium 8.4 L - ABG Interpretation ABG results: PT/INR, D-dimer PT 13.5 Seconds (9.4-12.1) H 07/17/18 12:29 Consult Discharge Plan - Plan Referrals: Chris Garcia DO [Primary Care Provider] - (1) Osteomyelitis Qualifiers: Osteomyelitis type: other acute Osteomyelitis location: foot Laterality: right Qualified Code(s): M86.171 - Other acute osteomyelitis, right ankle and foot (3) Type 2 diabetes mellitus with foot ulcer Qualifiers: Diabetes mellitus terminal superintendent insulin use: with terminal superintendent use Qualified Code(s) : E11.621 - Type 2 diabetes mellitus with foot ulcer; L97.509 - Non-pressure chronic ulcer of other part of unspecified foot with unspecified severity; Z79.4 - terminal block assembler (current) use of insulin (4) HLD (hyperlipidemia) Qualifiers: Hyperlipidemia type: unspecified Qualified Code(s): E78.5 - Hyperlipidemia, unspecified (5) HTN (hypertension) Qualifiers: Hypertension type: essential hypertension Qualified Code(s): I10 - Essential (primary) hypertension
--- NOTE | 2018-07-22 12:52 | Podiatry Progress Note ---
Date of Encounter: 07/22/18 Time of Encounter: 12:49 - Assessment and Plan (1) Osteomyelitis Current Visit: Yes Status: Acute POD #4. Incision well approximated. Minimal edema and erythema noted. Old dressing removed with minimal serosanguineous drainage. Applied adaptic, 4x4 dry gauze, and kerlex. Secured with Reese bandage. Can weight bear with surgical shoe. ATB to be managed by ID. Appreciate input. Wound cultures positive for protease, MRSA, group B strep. Okay to [place] home from podiatry standpoint. Antibiotics to be managed by ID outpatient. Qualifiers: Osteomyelitis type: other acute Osteomyelitis location: foot Laterality: right Qualified Code(s): M86.171 - Other acute osteomyelitis, right ankle and foot (2) Diabetic infection of right foot Current Visit: Yes Status: Acute Hemoglobin A1c 7.2% on 07/17/18. Blood glucose levels today in the 200s. Primary managing. Patient normally on insulin pump but while in hospital does not have on. Subjective Principal diagnosis: Osteomylitis Interval history: Patient sitting in bed. at bedside. ID at bedside. Patient denies any pain to right lower extremity. Denies any fever or chills. Objective - Vital Signs Vital Signs: Vital Signs Temp Pulse Resp BP Pulse Ox 07/22/18 11:01 98.6 F 73 17 127/51 96 07/22/18 07:16 98.4 F 70 16 132/75 93 07/22/18 04:54 98.7 F 71 16 129/67 96 07/21/18 23:38 97.9 F 68 18 114/54 94 07/21/18 18:58 99.9 F H 68 18 129/62 97 07/21/18 16:39 98.8 F 68 14 129/53 96 07/21/18 16:20 98.8 F 67 16 115/50 96 Intake and Output 07/21/18 07/22/18 07/22/18 23:59 07:59 15:59 Intake Total 1400 / 1400 100 / 100 480 / 480 Output Total 380 / 380 400 / 400 200 / 200 Balance 1020 / 1020 -300 / -300 280 / 280 Intake: IV Fluids 1200 / 1200 100 / 100 Zosyn 3.375 GM In 0.9 % Sodium 200 / 200 100 / 100 Chloride (Mini-Bag +) 100 ML @ 25 mls/hr IVPB Q8HR MARCY Rx#: [id number] Oral 200 / 200 480 / 480 Output: Urine 380 / 380 400 / 400 200 / 200 Other: Meal Lunch Percent of Meal Consumed 85% Stool Size Small Stool Consistency soft Stool Color Brown # Voids 1 # Bowel Movements 0 Weight 87.37 kg Blood Glucose* 172 211 289 - Exam Incision: Present: healing, draining - Lab Result Diagrams: 07/22/18 10:38 07/22/18 05:19 Labs: Abnormal lab results RBC 2.85 M/mcL (4.19-5.50) L 07/21/18 03:05 Hgb 9.5 g/dL (12.9-16.9) L 07/22/18 10:38 Hct 28.7 % (37.5-50.1) L 07/22/18 10:38 ESR 81 mm/hr (0-10) H 07/18/18 04:29 PT 13.5 Seconds (9.4-12.1) H 07/17/18 12:29 Sodium 135 mEq/L (136-145) L 07/22/18 05:19 Carbon Dioxide 21 mEq/L (23-29) L 07/22/18 05:19 BUN 30 mg/dL (8-23) H 07/22/18 05:19 Creatinine 1.36 mg/dL (0.70-1.30) H 07/22/18 05:19 Est GFR (Non-Af Amer) 51 (> 60) L 07/22/18 05:19 Glucose 215 mg/dL (70-105) H 07/22/18 05:19 POC Glucose 289 mg/dL (70-99) H 07/22/18 11:01 Hemoglobin A1c 7.2 % (-5.6) H 07/17/18 13:07 Calcium 8.4 mg/dL (8.6-10.3) L 07/22/18 05:19 Alkaline Phosphatase 155 Units/L (34-104) H 07/17/18 12:29 Globulin 4.5 g/dL (2.4-3.5) H 07/17/18 12:29 Albumin/Globulin Ratio 0.9 (1.1-2.2) L 07/17/18 12:29 Ur Specific [place] > 1.030 (1.010-1.025) H 07/17/18 12:47 Vancomycin Trough 22 mcg/mL (5-10) H 07/21/18 00:16 Microbiology, Last 48 Hours 07/18/18 16:50 Surgical Biopsy Culture - Final Right Foot Methicillin Resistant S.aureus Proteus mirabilis Strep agalactiae - (Group B) 07/18/18 16:50 Surgical Biopsy Culture - Final Right Foot Methicillin Resistant S.aureus Proteus mirabilis Strep agalactiae - (Group B) Consult Discharge Plan - Plan Additional Instructions: Follow up in wound care clinic with Dr. Garcia on . Please have nurse make an appointment prior to leaving hospital. Referrals: Chris Garcia DO [Primary Care Provider] - Brannon Garcia DPM [Partnered Physician] -
[2018-07-22] MEDS: 0.9 % Sodium Chloride 1,000 ML IVC SCH (12:56)
--- NOTE | 2018-07-22 14:18 | Infectious Disease Progress No ---
Date of Encounter: 07/22/18 Time of Encounter: 10:20 - Assessment and Plan (1) Osteomyelitis Current Visit: Yes Status: Acute Location: Left hallux. Causative organism: MRSA, Proteus mirabilis, and GBS. Likely secondary to chronic non-healing foot ulcer. Podiatry consulted. Status post amputation of the right hallux 07/18/[address] Garcia. Intra-op cultures as above. Pathology pending. Wound care and activity restrictions per the Podiatry team. Continue Vancomycin IV. Pharmacy to dose. Goal trough ~15. Discontinue Zosyn. Start Rocephin 2 grams IV daily. Start flagyl 500mg PO TID until anaerobic cultures finalize. Duration of treatment depends on the clinical picture, but likely a total of 6 weeks post-op. Monitor renal function and for drug toxicity and dose-adjust antibiotics. Consult VAT for PICC line placement prior to discharge. Will need weekly CBC, BUN/Cr, ESR, CRP, and Vanc trough. Will need weekly PICC care per protocol. Follow up with ID 08/07/18 at 0900. Qualifiers: Osteomyelitis type: other acute Osteomyelitis location: foot Laterality: right Qualified Code(s): M86.171 - Other acute osteomyelitis, right ankle and foot (2) Diabetic infection of right foot Current Visit: Yes Status: Acute Location: Right foot. Causative organism: MRSA, GBS, P. mirabilis. Likely secondary to chronic ulcer. Podiatry consulted. Antibiotic recommendations as above. (3) Acute kidney injury Current Visit: Yes Status: Acute Likely secondary to Vanc toxicity. Continue to trend. Dose-adjust antibiotics. Avoid nephrotoxins as able. Strict I's and O's. (4) Vancomycin overdose of undetermined intent Current Visit: Yes Status: Acute Qualifiers: Encounter type: initial encounter Qualified Code(s): T36.8X4A - Poisoning by other systemic antibiotics, undetermined, initial encounter (5) Type 2 diabetes mellitus with foot ulcer Current Visit: No Status: Acute Recommend aggressive glucose monitoring and control to promote wound healing and prevent re-infection. Management per the primary team. Qualifiers: Diabetes mellitus usp insulin use: with usp use Qualified Code( s): E11.621 - Type 2 diabetes mellitus with foot ulcer; L97.509 - Non-pressure chronic ulcer of other part of unspecified foot with unspecified severity; Z79.4 - remote computer terminal operator (current) use of insulin (6) CAD (coronary artery disease) Current Visit: No Status: Chronic Qualifiers: Coronary Disease-Associated Artery/Lesion type: [place] artery [place] vs. transplanted heart: [place] heart Associated angina: without angina Qualified Code(s): I25.10 - Atherosclerotic heart disease of [place] coronary artery without angina pectoris - Subjective Interval history: Patient seen and examined. No acute events noted overnight. Patient states overall he feels okay today. Reports minimal pain at surgical site. Denies any fevers or chills or rigors. Denies chest pain, shortness of breath, or cough. Denies nausea, vomiting, diarrhea, or constipation. Denies abdominal pain or urinary complaints. States his appetite is okay. He denies any oral thrush or any skin lesions. Infect Dis PN-Objective Data - Labs CBC & Chem 7: 07/22/18 10:38 07/22/18 05:19 Labs: Laboratory Results - last 24 hr 07/21/18 07/21/18 07/21/18 16:37 20:12 22:51 Hgb 8.0 L Hct 24.8 L Sodium Potassium Chloride Carbon Dioxide BUN Creatinine Est GFR ( Amer) Est GFR (Non-Af Amer) BUN/Creatinine Ratio Glucose POC Glucose 140 H 172 H Calculated Osmolality Calcium 07/22/18 07/22/18 07/22/18 05:19 05:19 10:38 Hgb 9.3 L 9.5 L Hct 29.5 L 28.7 L Sodium 135 L Potassium 4.1 Chloride 107 Carbon Dioxide 21 L BUN 30 H Creatinine 1.36 H Est GFR ( Amer) > 60 Est GFR (Non-Af Amer) 51 L BUN/Creatinine Ratio 22 Glucose 215 H POC Glucose Calculated Osmolality 293 Calcium 8.4 L 07/22/18 11:01 Hgb Hct Sodium Potassium Chloride Carbon Dioxide BUN Creatinine Est GFR ( Amer) Est GFR (Non-Af Amer) BUN/Creatinine Ratio Glucose POC Glucose 289 H Calculated Osmolality Calcium Cultures: Cultures 07/18/18 16:50 Surgical Biopsy Culture - Final Right Foot Methicillin Resistant S.aureus Proteus mirabilis Strep agalactiae - (Group B) 07/18/18 16:50 Surgical Biopsy Culture - Final Right Foot Methicillin Resistant S.aureus Proteus mirabilis Strep agalactiae - (Group B) Serology 07/20/18 Range/Units 15:38 Stl C. diff Tox B Gene Negative (Negative) Exam - Constitutional Vitals: Temp Pulse Resp BP Pulse Ox 98.6 F 73 17 127/51 96 07/22/18 11:01 07/22/18 11:01 07/22/18 11:01 07/22/18 11:01 07/22/18 11:01 General appearance: average body habitus, cooperative, no acute distress - Head Head exam: Present: atraumatic, normal inspection, normocephalic - Eye Eye exam: Present: EOMI, normal appearance, PERRL Pupils: Present: normal accommodation - ENT ENT exam: Present: mucous membranes moist - Neck Neck exam: Present: normal inspection - Respiratory Respiratory exam: Present: CTAB. Absent: rales, respiratory distress, rhonchi, wheezes - Cardiovascular Cardiovascular exam: Present: RRR, +S1, +S2 - GI/Abdominal GI/Abdominal exam: Present: normal bowel sounds, soft. Absent: distended, tenderness - Extremities Exam Extremities exam: Absent: normal inspection (Right foot first digit surigcal site with wound edge well-approximated and sutures intact. Mild ecchymosis of the wound edges noted. No erythema, warmth, purulence, or fluctuance noted.) - Neurological Exam Neurological exam: Present: alert, oriented X3, no focal deficits - Psychiatric Psychiatric exam: Present: normal affect, normal mood - Skin Skin exam: Present: dry, intact, normal color, warm Consult Discharge Plan - Plan Additional Instructions: Follow up in wound care clinic with Dr. Garcia on . Please have nurse make an appointment prior to leaving hospital. Referrals: Brannon Garcia DPM [Partnered Physician] - Chris Garcia DO [Primary Care Provider] - - Attending Attestation I examined this patient and my medical decision-making was reviewed with the Resident Physician. I agree with the documented findings, disposition and treatment plan as described except to the extent set forth below.
[2018-07-22] MEDS ORDERED: Lidocaine -MPF 1% 5 ML AMPUL INFILT ONE (14:28)
[2018-07-22] MEDS: metroNIDAZOLE 500 MG TABLET PO SCH ×2 (15:12→20:00)
[2018-07-22] MEDS: cefTRIAXone 2,000 MG in Water for inj. (sterile) 20 ML 20 ML IVP SCH (15:12)
[2018-07-22 16:04] LABS: Bilirubin,Urine Negative (Negative); Blood,Urine Negative (Negative); Clarity,Urine Clear (Clear); Color,Urine Yellow (Yellow); Glucose,Urine (UA) Normal (Normal); Ketones,Urine Negative (Negative); Leukocyte Esterase,Urine Negative (Negative); Nitrite,Urine Negative (Negative); PH,Urine 5.5 pH Units (5.0-8.0); Protein,Urine Negative (Neg-Trace); Urobilinogen,Urine Normal (Normal)
[2018-07-22] MEDS: Subcutaneous Insulin Pump [T:Slim] SQ SCH (16:50)
[2018-07-22 17:28] LABS: Sodium, Urine 94.1 mEq/L
[2018-07-23] MEDS: *HR* OxyCODONE/APAP 10/325 TABLET PO PRN ×2 (03:16→10:43)
[2018-07-23] MEDS: 0.9 % Sodium Chloride 1,000 ML IVC SCH (03:16)
[2018-07-23 06:11] LABS: BUN/Creatinine Ratio 22 (6-26); Blood Urea Nitrogen 24 mg/dL (8-23); Calcium 8.5 mg/dL (8.6-10.3); Carbon Dioxide 21 mEq/L (23-29); Chloride 111 mEq/L (98-107); Glucose 60 mg/dL (70-105); Osmolality,Calculated 292 (280-300); Sodium 140 mEq/L (136-145); eGFR For Non-African Americans > 60 (> 60)
[2018-07-23] MEDS: Insulin LISPRO 300 UNITS/3 ML VIAL SQ SCH ×2 (08:05→11:54)
[2018-07-23] MEDS: *HR* Ticagrelor 90 MG TABLET PO SCH (09:14)
[2018-07-23] MEDS: Isosorbide MONOnitrate (24 HR) 30 MG TAB.ER.24H PO SCH (09:14)
[2018-07-23] MEDS: Multivit/Ca/Min/Fe/FA 1 TAB TABLET PO SCH (09:14)
[2018-07-23] MEDS: Cholecalciferol (D-3) 1,000 UNIT TABLET PO SCH (09:14)
[2018-07-23] MEDS: Famotidine 20 MG TABLET PO SCH (09:14)
[2018-07-23] MEDS: metroNIDAZOLE 500 MG TABLET PO SCH (09:14)
[2018-07-23] MEDS: Aspirin Enteric Coated 81 MG Tablet PO SCH (09:14)
[2018-07-23] MEDS: Cholestyramine 4 GM POWD.PACK PO SCH (10:43)
--- NOTE | 2018-07-23 11:45 | Infectious Disease Progress No ---
Date of Encounter: 07/23/18 Time of Encounter: 11:43 - Assessment and Plan (1) Osteomyelitis Current Visit: Yes Status: Acute Location: Left hallux. Causative organism: MRSA, Proteus mirabilis, and GBS. Likely secondary to chronic non-healing foot ulcer. Podiatry consulted. Status post amputation of the right hallux 07/18/[address] Garcia. Intra-op cultures as above. Pathology pending. Wound care and activity restrictions per the Podiatry team. Continue Vancomycin IV. Pharmacy to dose. Goal trough ~15. Continue Rocephin 2 grams IV daily. Continue flagyl 500mg PO TID until anaerobic cultures finalize. Duration of treatment depends on the clinical picture, but likely a total of 6 weeks post-op. Monitor renal function and for drug toxicity and dose-adjust antibiotics. Consult VAT for PICC line placement prior to discharge. Will need weekly CBC, BUN/Cr, ESR, CRP, and Vanc trough. Will need weekly PICC care per protocol. Follow up with ID 08/07/18 at 0900. Qualifiers: Osteomyelitis type: other acute Osteomyelitis location: foot Laterality: right Qualified Code(s): M86.171 - Other acute osteomyelitis, right ankle and foot (2) Diabetic infection of right foot Current Visit: Yes Status: Acute Location: Right foot. Causative organism: MRSA, GBS, P. mirabilis. Likely secondary to chronic ulcer. Podiatry consulted. Antibiotic recommendations as above. (3) Acute kidney injury Current Visit: Yes Status: Resolved Likely secondary to Vanc toxicity. Resolved. Continue to trend. Dose-adjust antibiotics. Avoid nephrotoxins as able. Strict I's and O's. (4) Vancomycin overdose of undetermined intent Current Visit: Yes Status: Resolved Qualifiers: Encounter type: initial encounter Qualified Code(s): T36.8X4A - Poisoning by other systemic antibiotics, undetermined, initial encounter (5) Type 2 diabetes mellitus with foot ulcer Current Visit: No Status: Acute Recommend aggressive glucose monitoring and control to promote wound healing and prevent re-infection. Management per the primary team. Qualifiers: Diabetes mellitus prison insulin use: with prison use Qualified Code(s): E11.621 - Type 2 diabetes mellitus with foot ulcer; L97.509 - Non- pressure chronic ulcer of other part of unspecified foot with unspecified severity; Z79.4 - senior care (current) use of insulin (6) CAD (coronary artery disease) Current Visit: No Status: Chronic Qualifiers: Coronary Disease-Associated Artery/Lesion type: [place] artery [place] vs. transplanted heart: [place] heart Associated angina: without angina Qualified Code(s): I25.10 - Atherosclerotic heart disease of [place] coronary artery without angina pectoris - Subjective Interval history: Patient seen and examined. No acute events noted overnight. Patient states overall he feels okay today. Reports minimal pain at surgical site. Reports a chill earlier today, but denies fevers. Denies chest pain, shortness of breath, or cough. Denies nausea, vomiting, diarrhea, or constipation. Denies abdominal pain or urinary complaints. States his appetite is okay. He denies any oral thrush or any skin lesions. Infect Dis PN-Objective Data - Labs CBC & Chem 7: 07/23/18 16:25 07/23/18 05:37 Labs: Laboratory Results - last 24 hr 07/22/18 07/22/18 07/22/18 07:21 11:01 15:20 Sodium Potassium Chloride Carbon Dioxide BUN Creatinine Est GFR ( Amer) Est GFR (Non-Af Amer) BUN/Creatinine Ratio Glucose POC Glucose 211 H 289 H Calculated Osmolality Calcium Urine Color Yellow Urine Clarity Clear Urine pH 5.5 Ur Specific Range 1.020 Urine Protein Negative Urine Glucose (UA) Normal Urine Ketones Negative Urine Blood Negative Urine Nitrite Negative Urine Bilirubin Negative Urine Urobilinogen Normal Ur Leukocyte Esterase Negative Urine Creatinine Urine Sodium Urine Urea Nitrogen Vancomycin Trough 07/22/18 07/22/18 07/23/18 15:20 15:20 05:37 Sodium 140 Potassium 4.0 Chloride 111 H Carbon Dioxide 21 L BUN 24 H Creatinine 1.09 Est GFR ( Amer) > 60 Est GFR (Non-Af Amer) > 60 BUN/Creatinine Ratio 22 Glucose 60 L POC Glucose Calculated Osmolality 292 Calcium 8.5 L Urine Color Urine Clarity Urine pH Ur Specific Range Urine Protein Urine Glucose (UA) Urine Ketones Urine Blood Urine Nitrite Urine Bilirubin Urine Urobilinogen Ur Leukocyte Esterase Urine Creatinine 58 Urine Sodium 94.1 Urine Urea Nitrogen 376 Vancomycin Trough 07/23/18 09:14 Sodium Potassium Chloride Carbon Dioxide BUN Creatinine Est GFR ( Amer) Est GFR (Non-Af Amer) BUN/Creatinine Ratio Glucose POC Glucose Calculated Osmolality Calcium Urine Color Urine Clarity Urine pH Ur Specific Range Urine Protein Urine Glucose (UA) Urine Ketones Urine Blood Urine Nitrite Urine Bilirubin Urine Urobilinogen Ur Leukocyte Esterase Urine Creatinine Urine Sodium Urine Urea Nitrogen Vancomycin Trough 18 H Cultures: Cultures 07/18/18 16:50 Surgical Biopsy Culture - Final Right Foot Methicillin Resistant S.aureus Proteus mirabilis Strep agalactiae - (Group B) 07/18/18 16:50 Surgical Biopsy Culture - Final Right Foot Methicillin Resistant S.aureus Proteus mirabilis Strep agalactiae - (Group B) Serology 07/22/18 07/22/18 07/22/18 Range/Units 15:20 15:20 15:20 Urine Color Yellow (Yellow) Urine Clarity Clear (Clear) Urine pH 5.5 (5.0-8.0) pH Units Ur Specific Range 1.020 (1.010-1.025) Urine Protein Negative (Neg-Trace) mg/dL Urine Glucose (UA) Normal (Normal) mg/dL Urine Ketones Negative (Negative) mg/dL Urine Blood Negative (Negative) Urine Nitrite Negative (Negative) Urine Bilirubin Negative (Negative) Urine Urobilinogen Normal (Normal) mg/dL Ur Leukocyte Esterase Negative (Negative) Urine Creatinine 58 mg/dL Urine Sodium 94.1 mEq/L Urine Urea Nitrogen 376 mg/dL Stl C. diff Tox B Gene (Negative) 07/20/18 Range/Units 15:38 Urine Color (Yellow) Urine Clarity (Clear) Urine pH (5.0-8.0) pH Units Ur Specific Range (1.010-1.025) Urine Protein (Neg-Trace) mg/dL Urine Glucose (UA) (Normal) mg/dL Urine Ketones (Negative) mg/dL Urine Blood (Negative) Urine Nitrite (Negative) Urine Bilirubin (Negative) Urine Urobilinogen (Normal) mg/dL Ur Leukocyte Esterase (Negative) Urine Creatinine mg/dL Urine Sodium mEq/L Urine Urea Nitrogen mg/dL Stl C. diff Tox B Gene Negative (Negative) Exam - Constitutional Vitals: Temp Pulse Resp BP Pulse Ox 98.2 F 79 18 152/72 97 07/23/18 11:25 07/23/18 11:25 07/23/18 11:25 07/23/18 11:25 07/23/18 11:25 General appearance: average body habitus, cooperative, no acute distress - Head Head exam: Present: atraumatic, normal inspection, normocephalic - Eye Eye exam: Present: EOMI, normal appearance, PERRL Pupils: Present: normal accommodation - ENT ENT exam: Present: mucous membranes moist - Neck Neck exam: Present: normal inspection - Respiratory Respiratory exam: Present: CTAB. Absent: rales, respiratory distress, rhonchi, wheezes - Cardiovascular Cardiovascular exam: Present: RRR, +S1, +S2 - GI/Abdominal GI/Abdominal exam: Present: normal bowel sounds, soft. Absent: distended, tenderness - Extremities Exam Extremities exam: Absent: joint swelling, normal inspection (Right foot dressing C/D/I.), pedal edema, tenderness - Neurological Exam Neurological exam: Present: alert, oriented X3, no focal deficits - Psychiatric Psychiatric exam: Present: normal affect, normal mood - Skin Skin exam: Present: dry, intact, normal color, warm Consult Discharge Plan - Plan Additional Instructions: Follow up in wound care clinic with Dr. Garcia on . Please have nurse make an appointment prior to leaving hospital. Referrals: Brannon Garcia DPM [Partnered Physician] - Chris Garcia DO [Primary Care Provider] - Maranda Kincaid, COMMERCIAL ESCROW OFFICER [Advanced Practice Nurse] - 08/07/18 9:00 am Prescriptions: OxyCODONE/APAP 10/325 [Percocet 10/325 MG] 1 each PO Q8HR PRN 3 Days #9 tablet PRN Reason: Severe Pain cefTRIAXone [Rocephin] 2,000 mg IJ DAILY 42 Days #42 vial Vancomycin HCl in Dextrose 5 % [Vancomycin-D5w 1.25 Gram/250Ml] 1.25 gm IV DAILY 42 Days #42 mls - Attending Attestation I examined this patient and my medical decision-making was reviewed with the Resident Physician. I agree with the documented findings, disposition and treatment plan as described except to the extent set forth below. Patient apparently took a turn for the worse and coated. X-ray looks that he might have aspirated. Nursing a tells me that she probably vomited half an hour prior to the code. Patient currently stable intubated and he is in atrial fibrillation. Discussed with the hospitalist team and with the ICU team. We will DC Rocephin and metronidazole start the Zosyn and continue vancomycin.
--- NOTE | 2018-07-23 12:04 | Podiatry Progress Note ---
Date of Encounter: 07/23/18 Time of Encounter: 11:45 - Assessment and Plan (1) Osteomyelitis Current Visit: Yes Status: Acute POD #5. Right hallax amputation incision well approximated. Minimal edema and erythema noted. Old dressing removed with minimal sanguineous drainage. Applied betadine, 4x4 dry gauze, and kerlex. Secured with Reese bandage. Can weight bear with surgical shoe. ATB to be managed by ID. Appreciate input. Wound cultures positive for protease, MRSA, group B strep. Okay to [facility] home from podiatry standpoint. Patient to follow with Dr. Garcia in wound clinic. Antibiotics to be managed by ID outpatient. Qualifiers: Osteomyelitis type: other acute Osteomyelitis location: foot Laterality: right Qualified Code(s): M86.171 - Other acute osteomyelitis, right ankle and foot (2) Diabetic infection of right foot Current Visit: Yes Status: Acute Hemoglobin A1c 7.2% on 07/17/18. Blood glucose levels 60 this a.m. Primary managing. Patient normally on insulin pump but while in hospital receiving subcutaneous injections. Subjective Principal diagnosis: Osteomylitis Interval history: Patient sitting in bed. at bedside. Patient denies any pain to right lower extremity. Denies any fever or chills. Objective - Vital Signs Vital Signs: Vital Signs Temp Pulse Resp BP Pulse Ox 07/23/18 11:25 98.2 F 79 18 152/72 97 07/23/18 06:47 98.3 F 71 18 119/57 95 07/23/18 03:46 98.3 F 79 17 137/65 92 07/22/18 23:20 98.6 F 75 18 134/67 95 07/22/18 18:27 100.3 F H 75 17 133/66 97 07/22/18 16:08 98.7 F 75 19 156/70 94 Intake and Output 07/22/18 07/23/18 07/23/18 23:59 07:59 15:59 Intake Total 1000 / 1000 1080 / 1080 Output Total 450 / 450 250 / 250 100 / 100 Balance -450 / -450 750 / 750 980 / 980 Intake: IV Fluids 1000 / 1000 0.9 % Sodium Chloride 1,000 ML 1000 / 1000 @ 75 mls/hr IVC .[id number] MARCY Rx #:[id number] Oral 1080 / 1080 Output: Urine 450 / 450 250 / 250 100 / 100 Other: Meal Breakfast Percent of Meal Consumed 100% # Voids 1 Blood Glucose* 91 61 171 - Exam Exam: Constitutional: Awake alert oriented 3 Vascular: Edema noted to the distal foot, capillary fill time less than 3 seconds, decreased epicritic, vibratory sensation bilaterally Integumentary: Old dressing to right foot removed with minimal sanguinous drainage, right hallux amputation sutures well approximated, fourth toe to right foot with bullae Neurological: Decreased epicritic and vibratory sensation bilaterally Musculoskeletal: 4/5 muscle tone, generalized weakness Incision: Present: healing Capillary Refill: less than 3 seconds - Lab Result Diagrams: 07/23/18 16:25 07/23/18 05:37 Labs: Abnormal lab results RBC 2.85 M/mcL (4.19-5.50) L 07/21/18 03:05 Hgb 9.5 g/dL (12.9-16.9) L 07/22/18 10:38 Hct 28.7 % (37.5-50.1) L 07/22/18 10:38 ESR 81 mm/hr (0-10) H 07/18/18 04:29 PT 13.5 Seconds (9.4-12.1) H 07/17/18 12:29 Chloride 111 mEq/L (98-107) H 07/23/18 05:37 Carbon Dioxide 21 mEq/L (23-29) L 07/23/18 05:37 BUN 24 mg/dL (8-23) H 07/23/18 05:37 Glucose 60 mg/dL (70-105) L 07/23/18 05:37 POC Glucose 289 mg/dL (70-99) H 07/22/18 11:01 Hemoglobin A1c 7.2 % (-5.6) H 07/17/18 13:07 Calcium 8.5 mg/dL (8.6-10.3) L 07/23/18 05:37 Alkaline Phosphatase 155 Units/L (34-104) H 07/17/18 12:29 Globulin 4.5 g/dL (2.4-3.5) H 07/17/18 12:29 Albumin/Globulin Ratio 0.9 (1.1-2.2) L 07/17/18 12:29 Vancomycin Trough 18 mcg/mL (5-10) H 07/23/18 09:14 Microbiology, Last 48 Hours 07/18/18 16:50 Surgical Biopsy Culture - Final Right Foot Methicillin Resistant S.aureus Proteus mirabilis Strep agalactiae - (Group B) 07/18/18 16:50 Surgical Biopsy Culture - Final Right Foot Methicillin Resistant S.aureus Proteus mirabilis Strep agalactiae - (Group B) Consult Discharge Plan - Plan Additional Instructions: Follow up in wound care clinic with Dr. Garcia on . Please have nurse make an appointment prior to leaving hospital. Referrals: Brannon Garcia, DPM [Partnered Physician] - Maranda Kincaid STRIP CUTTING MACHINE OPERATOR [Advanced Practice Nurse] - 08/07/18 9:00 am Chris Garcia DO [Primary Care Provider] - Prescriptions: OxyCODONE/APAP 10/325 [Percocet 10/325 MG] 1 each PO Q8HR PRN 3 Days #9 tablet PRN Reason: Severe Pain cefTRIAXone [Rocephin] 2,000 mg IJ DAILY 42 Days #42 vial Vancomycin HCl in Dextrose 5 % [Vancomycin-D5w 1.25 Gram/250Ml] 1.25 gm IV DAILY 42 Days #42 mls
[2018-07-23] MEDS ORDERED: cefTRIAXone 1,000 MG in Water for inj. (sterile) 20 ML 10 ML IVP SCH (12:18)
--- NOTE | 2018-07-23 12:59 | Discharge Summary ---
- NOTES TO OUTPATIENT PROVIDER Notes to Outpatient Provider: Follow up with podiatry. Will need weekly blood work for CBC, BUN/Cr, ESR, CRP, and Vanc trough. Lisinopril/HCTZ and Lasix/ potassium held due to TOMASZ. Consider resuming in 2-4 days. Date of Encounter: 07/23/18 Time of Encounter: 10:56 - Discharge Diagnosis (1) Osteomyelitis Priority: Primary Status: Acute Qualifiers: Osteomyelitis type: other acute Osteomyelitis location: foot Laterality: right Qualified Code(s): M86.171 - Other acute osteomyelitis, right ankle and foot (2) Chronic ulcer of great toe of right foot with fat layer exposed Priority: Primary Status: Acute (3) Type 2 diabetes mellitus with foot ulcer Priority: Primary Status: Acute Qualifiers: Diabetes mellitus greeter insulin use: with skilled nursing use Qualified Code( s): E11.621 - Type 2 diabetes mellitus with foot ulcer; L97.509 - Non-pressure chronic ulcer of other part of unspecified foot with unspecified severity; Z79.4 - boilers inspector (current) use of insulin (4) HLD (hyperlipidemia) Priority: Secondary Status: Acute Qualifiers: Hyperlipidemia type: unspecified Qualified Code(s): E78.5 - Hyperlipidemia , unspecified (5) HTN (hypertension) Priority: Secondary Status: Acute Qualifiers: Hypertension type: essential hypertension Qualified Code(s): I10 - Essential (primary) hypertension (6) Acute kidney injury Priority: Secondary Status: Resolved Hospital course: Mr. Lagunas is a 77 year old male with past medical history of diabetes, coronary artery disease, diabetes, GERD, hyperlipidemia, hypertension, myocardial infarction was referred by Dr. Garcia (podiatry) for treatment of diabetic ulcer with suspicion of osteomyelitis. Patient was started on broad-spectrum antibiotics with vancomycin and Zosyn. Foot x-ray suspicion of osteomyelitis. Patient agreed to get amputation of right hallux. Patient has surgery on . Wound cultures grew MRSA, Proteus, GBS. Patient was continued on vancomycin and Zosyn as well as metronidazole for anaerobic coverage. Infectious disease specialty were consulted. Patient will need IV antibiotics for 6 weeks with vancomycin and Rocephin based on culture and sensitivity on discharge. Patient would need weekly blood work. Patient would be discharged to SNF for further care and physical therapy. He has vancomycin dose will be adjusted based on vanc trough at [facility]. Patient did develop TOMASZ why he was getting antibiotics with some high vancomycin trough levels. His vancomycin was adjusted, lisinopril/HCTZ and Lasix was held and was started on gentle hydration. He is a CAD resolved. Patient stable to be discharged to [facility] today. recycle worker currently working on placement and antibiotics. Discharge discussed with: patient, nurse, social work, case management - Time Spent with Patient Total time spent providing and/or coordinating discharge services: Greater than 30 minutes (40) - Discharge Medications Prescriptions: cefTRIAXone [Rocephin] 2,000 mg IJ DAILY 42 Days #42 vial OxyCODONE/APAP 10/325 [Percocet 10/325 MG] 1 each PO Q8HR PRN 3 Days #9 tablet PRN Reason: Severe Pain Vancomycin HCl in Dextrose 5 % [Vancomycin-D5w 1.25 Gram/250Ml] 1.25 gm IV DAILY 42 Days #42 mls Home Medications: Aspirin [Lo-Dose Aspirin EC] 81 mg PO DAILY 11/07/17 [History] Atenolol [Tenormin] 25 mg PO DAILY 11/07/17 [History] Cholecalciferol (D-3) [Vitamin D] 2,000 unit PO DAILY 11/07/17 [History] Escitalopram [Lexapro] 10 mg PO DAILY 11/07/17 [History] Isosorbide MONOnitrate (24 HR) [Imdur] 30 mg PO DAILY 11/07/17 [History] Multivitamin [One Daily Essential] 1 tab PO DAILY 11/07/17 [History] Nitroglycerin [Nitrostat] 0.4 mg SL Q5M PRN 11/07/17 [History] Ranitidine HCl [Heartburn Relief] 150 mg PO BID 11/07/17 [History] Subcutaneous Insulin Pump [T:Slim] 80 unit MC AD 11/07/17 [History] Ticagrelor [Brilinta] 90 mg PO BID 11/07/17 [History] Rosuvastatin Calcium [Crestor] 10 mg PO HS 07/17/18 [History] OxyCODONE/APAP 10/325 [Percocet 10/325 MG] 1 each PO Q8HR PRN 3 Days #9 tablet 07/23/18 [Rx] Vancomycin HCl in Dextrose 5 % [Vancomycin-D5w 1.25 Gram/250Ml] 1.25 gm IV DAILY 42 Days #42 mls 07/23/18 [Rx] cefTRIAXone [Rocephin] 2,000 mg IJ DAILY 42 Days #42 vial 07/23/18 [Rx] Allergies/Adverse Reactions: 3 Allergy/AdvReac Type Severity Reaction Status Date / Time clopidogrel [From Plavix] Allergy Hives Verified 07/17/18 13:06 Iodinated Contrast- Oral and Allergy Hives Verified 07/17/18 13:06 IV Dye meperidine [From Demerol] Allergy Hives Verified 07/17/18 13:06 shellfish derived Allergy Hives Verified 07/17/18 13:06 Date of admission: 07/17/18 16:21 Primary care physician: Chris Garcia DO Consults: 07/17/18 17:45 Consult to Nutrition [CONS] Routine Comment: Consulting Provider: NUTRITION Reason for Dietary Consult: MST Score Consult to Hospitality Internship [CONS] Routine Reason for SW Consult: Osteomyelitis 07/20/18 23:10 PT [Consult to Physical Therapy] [CONS] Routine Comment: Evaluate, develop and implement POC Reason for Consult: Patient had amputation of right hallux on 07/18. Pt. will require rehabilitation therapy. Please assess pt. for ambulation safety, strength, stability, and possible home assistive/rehabilitation needs for post-discharge planning. Does patient have active BEDREST order?: No Is patient medically & hemodynamically stable?: Yes Patient assessed for mobility or mobilized this visit?: No 07/20/18 23:13 OT [Consult to Occupational Therapy] [CONS] Routine Comment: Evaluate, develop and implement POC Reason for Consult: Patient had amputation of right hallux on 07/18. Pt. will require rehabilitation therapy. Please assess pt. for ambulation safety, strength, stability, and possible home assistive/rehabilitation needs for post-discharge planning. Does patient have active BEDREST order?: No Is patient medically & hemodynamically stable?: Yes Patient assessed for mobility or mobilized this visit?: No 07/21/18 12:53 Consult to Infectious Diseases [CONS] Routine Consulting Provider: Infectious Disease Cyndi Reason for Consult: Osteomylitis Right great toe amputation Call Completed: Yes 07/22/18 14:28 Consult to Invasive Line Access Team [CONS] Routine Reason for Consult: Picc Line Insertion Line Type: PICC PICC line indications: assisted Med/Antibiotic Time Notified: 14:28 Call Completed: Yes Discharging clinician: Kumar Goodrich - Constitutional Vitals: Temp Pulse Resp BP Pulse Ox 98.2 F 79 18 152/72 97 07/23/18 11:25 07/23/18 11:25 07/23/18 11:25 07/23/18 11:25 07/23/18 11:25 General appearance: Present: A&O X 3, no acute distress, answers questions appropriately Exam: HEENT: Moist mucous membrane Respiratory: Normal breath sounds; no crackles or wheezes. CV: RRR, normal S1, S2, no MRG GI: Abdomen is soft and not tender. There is no palpable mass or orgenomegaly. Has inulin pump. Ext: Rt foot with dressing. Mild feet swelling. Neuro: There is no focal deficits. Normal sensation both legs. Skin: mild petechial rash on lower extremitie - Patient Status Disposition: Transfer SNF - Discharge Instructions Follow Up With: Brannon Garcia DPM [Partnered Physician] - Maranda Kincaid CNP [Advanced Practice Nurse] - 08/07/18 9:00 am Chris Garcia DO [Primary Care Provider] - Additional Instructions: Follow up in wound care clinic with Dr. Garcia on . Please have nurse make an appointment prior to leaving hospital. - Diet and Activity Activity: increase activity as tolerated (Can weight bear with surgical shoe)
--- NOTE | 2018-07-23 14:38 | Physician Discharge Referral ---
ExtendedCare Referral Info Institutional Level of Care: Skilled - Diagnosis (1) Osteomyelitis Status: Acute (2) Chronic ulcer of great toe of right foot with fat layer exposed Status: Acute (3) Type 2 diabetes mellitus with foot ulcer Status: Acute (4) HLD (hyperlipidemia) Status: Acute (5) HTN (hypertension) Status: Acute (6) Acute kidney injury Status: Resolved - Transfer Medications Prescriptions: cefTRIAXone [Rocephin] 2,000 mg IJ DAILY 42 Days #42 vial OxyCODONE/APAP 10/325 [Percocet 10/325 MG] 1 each PO Q8HR PRN 3 Days #9 tablet PRN Reason: Severe Pain Vancomycin HCl in Dextrose 5 % [Vancomycin-D5w 1.25 Gram/250Ml] 1.25 gm IV DAILY 42 Days #42 mls Home Medications: Aspirin [Lo-Dose Aspirin EC] 81 mg PO DAILY 11/07/17 [History] Atenolol [Tenormin] 25 mg PO DAILY 11/07/17 [History] Cholecalciferol (D-3) [Vitamin D] 2,000 unit PO DAILY 11/07/17 [History] Escitalopram [Lexapro] 10 mg PO DAILY 11/07/17 [History] Isosorbide MONOnitrate (24 HR) [Imdur] 30 mg PO DAILY 11/07/17 [History] Multivitamin [One Daily Essential] 1 tab PO DAILY 11/07/17 [History] Nitroglycerin [Nitrostat] 0.4 mg SL Q5M PRN 11/07/17 [History] Ranitidine HCl [Heartburn Relief] 150 mg PO BID 11/07/17 [History] Subcutaneous Insulin Pump [T:Slim] 80 unit MC AD 11/07/17 [History] Ticagrelor [Brilinta] 90 mg PO BID 11/07/17 [History] Rosuvastatin Calcium [Crestor] 10 mg PO HS 07/17/18 [History] OxyCODONE/APAP 10/325 [Percocet 10/325 MG] 1 each PO Q8HR PRN 3 Days #9 tablet 07/23/18 [Rx] Vancomycin HCl in Dextrose 5 % [Vancomycin-D5w 1.25 Gram/250Ml] 1.25 gm IV DAILY 42 Days #42 mls 07/23/18 [Rx] cefTRIAXone [Rocephin] 2,000 mg IJ DAILY 42 Days #42 vial 07/23/18 [Rx] Allergies/Adverse Reactions: 3 Allergy/AdvReac Type Severity Reaction Status Date / Time clopidogrel [From Plavix] Allergy Hives Verified 07/17/18 13:06 Iodinated Contrast- Oral and Allergy Hives Verified 07/17/18 13:06 IV Dye meperidine [From Demerol] Allergy Hives Verified 07/17/18 13:06 shellfish derived Allergy Hives Verified 07/17/18 13:06 - Respiratory Orders Smoking Cessation: Smoking cessation has been advised. For more information, call the [place] Tobacco Quit Line at 2-143-NOYU-NOW. - Advance Directives Code Status: Full Code - Mobility Orders Ambulate (with surgical boots) - Rehabiliation Orders Rehab Potential: Fair Rehab Orders: Evaluation for Physical Therapy - Diet Orders Cardiac CERTIFICATION: I certify that the transfer of the above named patient to an Extended Care Facility is necessary for the continuing treatment of the diagnosis listed. The above information is true and accurate reflection of patient's current condition. Confidential - Redisclosure prohibited without a patient's written consent.
[2018-07-23] MEDS ORDERED: Ondansetron 4 MG/2 ML VIAL IVP ONE (15:22)
[2018-07-23] MEDS: cefTRIAXone 2,000 MG in Water for inj. (sterile) 20 ML 20 ML IVP SCH (15:36)
--- NOTE | 2018-07-23 15:47 | Event Note ---
Date of Encounter: 07/23/18 Time of Encounter: 15:45 Patient was discharge early today waiting for placement. Patient developed fever this afternoon with N/V and some chills. Will get CXR, blood cultures and cbc. Will hold the discharge for now. Discussed with family.
[2018-07-23 16:09] LABS: Basophils % 0.3 %; Eosinophils # 0.2 K/mcL (0.0-0.6); Eosinophils % 1.3 %; Hematocrit 30.2 % (37.5-50.1); Hemoglobin 9.6 g/dL (12.9-16.9); Immature Granulocytes % 0.5 % (0-4); Lymphocytes # 3.5 K/mcL (0.6-4.6); Lymphocytes % 22.7 %; Mean Corpuscular HGB Conc 31.8 g/dL (31.6-35.5); Mean Corpuscular Hemoglobin 30.8 pg (28.0-33.3); Mean Corpuscular Volume 96.8 fL (83.0-100.0); Monocytes # 1.1 K/mcL (0.0-1.3); Monocytes % 7.1 %; Neutrophils # 10.6 K/mcL (1.6-8.9); Platelet Count 305 K/mcL (140-400); Red Blood Count 3.12 M/mcL (4.19-5.50); Red Cell Distribution Width 13.2 % (11.5-14.5); Segmented Neutrophils % 68.1 %
[2018-07-23 16:37] LABS: Basophils % 0.3 %; Eosinophils # 0.1 K/mcL (0.0-0.6); Eosinophils % 0.8 %; Hematocrit 29.7 % (37.5-50.1); Hemoglobin 8.8 g/dL (12.9-16.9); Immature Granulocytes % 1.8 % (0-4); Lymphocytes # 5.7 K/mcL (0.6-4.6); Mean Corpuscular HGB Conc 29.6 g/dL (31.6-35.5); Mean Corpuscular Hemoglobin 30.7 pg (28.0-33.3); Mean Platelet Volume 9.9 fL (9.4-12.4); Monocytes # 0.9 K/mcL (0.0-1.3); Monocytes % 6.6 %; Neutrophils # 6.6 K/mcL (1.6-8.9); Nucleated Red Blood Cells 0.4 /100 WBC (0); Platelet Count 252 K/mcL (140-400); Red Blood Count 2.87 M/mcL (4.19-5.50); Segmented Neutrophils % 48.5 %
[2018-07-23 16:42] LABS: Mean Corpuscular Volume 103.5 fL (83.0-100.0)
[2018-07-23 16:58] LABS: ABG Base Excess -18 mEq/L (-2 to 3); ABG HCO3 14 mEq/L (21-27); ABG Oxygen Saturation 93 % (95-98); ABG PCO2 76 mmHg (35-45); ABG PH 6.89 pH Units (7.32-7.45); ABG PO2 115 mmHg (85-104); ABG TCO2 17 mEq/L (20-26); Blood Gas Modality ASSIST CONTROL; Blood Gas PEEP 10 cm H2O; Blood Gas Respiration Rate 14; Blood Gas VT 500 cc
[2018-07-23 16:58] LABS: Troponin I 0.09 ng/mL (< 0.04)
[2018-07-23] MEDS ORDERED: Sodium Bicarbonate 150 MEQ in D5% in Water 1,000 ML IVC SCH (17:00)
[2018-07-23] MEDS ORDERED: Norepinephrine 4 MG in D5% in Water 250 ML IVC SCH (17:00)
[2018-07-23] MEDS ORDERED: Perflutren Lipid Microsphere 1.3 ML in 0.9 % Sodium Chloride 8.7 ML IVP ONE (17:16)
--- NOTE | 2018-07-23 17:43 | Cardiology Consult Note ---
Date of Encounter: 07/23/18 Time of Encounter: 17:36 Assessment and Plan (1) Cardiopulmonary arrest Current Visit: Yes Status: Acute Mr. Lagunas is a 77-year-old male who is being treated for a diabetic foot ulcer with associated osteomyelitis. This afternoon, he reportedly developed nausea and vomiting. Unfortunately, this was followed by a possible aspiration event and subsequent cardiopulmonary arrest. Per ICU staff, significant gastric contents obtained with suction of ET tube. Immediate labs demonstrate a PH 6.9, bicarbonate 14, and a minimal troponin elevation of 0.9. No acute ST or T-wave changes on repeat ECG. At this time, there is no clinical indication for invasive cardiac procedures. Recommend continued supportive care in the ICU by the office technologist regarding aspiration, metabolic/lactic acidosis, and ventilation dependant respiratory failure. Family, including and daughter, were updated. All questions were answered. Discussion w patient/family: The assessment and plan as outlined above was discussed with the patient and/or family members who expressed understanding and agreement. All questions were answered. Thank you for involving us in the care of your patient. Please call with any questions. History of Present Illness Consult date: 07/23/18 Requesting physician: Kumar Goodrich Consult reason: Arrest Chief complaint: Arrest History of present illness: Mr. Lagunas is a 77 year old male who is admitted to the hospital on 07/17/2018. According to reports, he was being treated for diabetic foot ulcer with evidence of osteomyelitis. He was scheduled for discharge. Unfortunately, the patient developed nausea and vomiting this afternoon. ICU nursing staff describes a possible aspiration event. Patient sustained a cardiopulmonary arrest. Per reports, patient was asystole upon arrival, received several minutes of CPR and 5 doses of epinephrine. He would require an additional dose of epinephrine and additional CPR in the elevator during transport to the ICU. Post ACLS, I was called by the hospitalist for concerns regarding an abnormal ECG. ECG reviewed and demonstrates atrial fibrillation, IVCD. Labs reviewed, pH 6.89, lactic acid >10.0, troponin 0.09. Upon my arrival to the ICU, patient is supine, on a ventilator, no movement. He is not currently requiring sedation. He is not breathing over the ventilator settings. Previous records: Venous duplex 07/17/2018: Right lower extremity normal superficial and deep venous exam. Arterial physiologic study 11/15/2017: Bilateral lower extremity waveforms demonstrate normal hemodynamics. Bilateral MARY KATE is normal. Carotid duplex 09/17/2017: Right ICA 40-59% stenosis. Left ICA 60-79% stenosis. LHC 05/15/2016: Left Main absent. Separate ostia for LAD and circumflex. LAD proximal 40% stenosis, mid 40% stenosis. D1 50% stenosis, small vessel. D3 50 % stenosis, small vessel. Circumflex patent stent from a previous procedure. RCA proximal 40% stenosis, mid 40% in-stent restenosis, distal 100% stenosis. RPDA has collaterals which feed from right to right and [id number]. EF 55%. TTE 01/13/2016: LVEF 55-60%. Normal LV diastolic function described. No evidence of pulmonary hypertension. No significant valvular dysfunction. RV normal in size and function. Past Med Surg Social Fam HX - Past Medical History Medical history: arthritis, cancer, CHF, coronary artery disease, diabetes, GERD , hyperlipidemia, hypertension, myocardial infarction, RA Additional medical history: PROSTATE CANCER, parkinsons, diverticulosis, hemmorhoids, pulmonary nodule, urinary ED, onychomycosis, paresthesia, seborrheic dermatitis, actinic keratosis, vit D def, basal cell cancer - nose Psychiatric history: no psych history - Past Surgical History Surgical History: angioplasty/stent, cancer surgery, orthopedic, other, prostatectomy, other Additional surgical history: TONSILLECTOMY, COLONOSCOPY, R foot toe amputation, heart stent, hemhorroid, colonoscopy/EGD, R foot sx, anal fissure, heart cath, Mohs sx - BCC left nose - Social History Smoking Status: Never smoker Smokeless Tobacco Status: No Alcohol use: none Drug use: none - Family History Mother Family Member Ethnicity: Non- Living Status: Hx Family Cancer: Yes Medications and Allergies RX: Aspirin [Lo-Dose Aspirin EC] 81 mg PO DAILY 11/07/17 [History] RX: Atenolol [Tenormin] 25 mg PO DAILY 11/07/17 [History] RX: Cholecalciferol (D-3) [Vitamin D] 2,000 unit PO DAILY 11/07/17 [History] RX: Escitalopram [Lexapro] 10 mg PO DAILY 11/07/17 [History] RX: Isosorbide MONOnitrate (24 HR) [Imdur] 30 mg PO DAILY 11/07/17 [History] RX: Multivitamin [One Daily Essential] 1 tab PO DAILY 11/07/17 [History] RX: Nitroglycerin [Nitrostat] 0.4 mg SL Q5M PRN 11/07/17 [History] RX: Ranitidine HCl [Heartburn Relief] 150 mg PO BID 11/07/17 [History] RX: Subcutaneous Insulin Pump [T:Slim] 80 unit MC AD 11/07/17 [History] RX: Ticagrelor [Brilinta] 90 mg PO BID 11/07/17 [History] RX: Rosuvastatin Calcium [Crestor] 10 mg PO HS 07/17/18 [History] RX: OxyCODONE/APAP 10/325 [Percocet 10/325 MG] 1 each PO Q8HR PRN 3 Days #9 tablet 07/23/18 [Rx] Vancomycin HCl in Dextrose 5 % [Vancomycin-D5w 1.25 Gram/250Ml] 1.25 gm IV DAILY 42 Days #42 mls 07/23/18 [Rx] cefTRIAXone [Rocephin] 2,000 mg IJ DAILY 42 Days #42 vial 07/23/18 [Rx] 3 Allergy/AdvReac Type Severity Reaction Status Date / Time clopidogrel [From Plavix] Allergy Hives Verified 07/17/18 13:06 Iodinated Contrast- Oral and Allergy Hives Verified 07/17/18 13:06 IV Dye meperidine [From Demerol] Allergy Hives Verified 07/17/18 13:06 shellfish derived Allergy Hives Verified 07/17/18 13:06 ROS unobtainable: due to endotracheal tube All Systems Review: The remainder of the systems were reviewed and are negative Physical Examination Vital Signs, Last 4 Hours Temp Pulse Resp BP Pulse Ox 07/23/18 14:44 101.2 F H 84 18 165/68 93 General: Other (Sedated, does not respond to noxious stimuli, intubated.) HEENT: Atraumatic, Normocephaly, Mucus Membranes Moist Neck: No JVD Cardiac: Other (Distant, regular. Difficult to appreciate murmurs.) Lungs: Other (Shallow. Scattered rhonchi.) Neuro: Other (No movement to noxious stimuli. Pupils appear fixed and dilated.) Abdomen: Soft, Non-Tender Skin: No rashes noted on visualized skin Musculoskeletal: No Chest Wall Tenderness Extremities: No Clubbing, No Cyanosis, Other (Bandage on right foot.) Results 07/23/18 16:25 07/23/18 05:37 Lab Results 07/23/18 07/23/18 07/23/18 05:37 15:40 16:25 WBC 15.6 H 13.5 H Hgb 9.6 L 8.8 L Hct 30.2 L 29.7 L Plt Count 305 252 Sodium 140 Potassium 4.0 Chloride 111 H Carbon Dioxide 21 L BUN 24 H Creatinine 1.09 Glucose 60 L Calcium 8.5 L Troponin I 07/23/18 16:25 WBC Hgb Hct Plt Count Sodium Potassium Chloride Carbon Dioxide BUN Creatinine Glucose Calcium Troponin I 0.09 H* - Imaging and Cardiology Echo: pending, report reviewed Cardiac cath: report reviewed - EKG Interpretation EKG results cardiology: personally reviewed (Repeat ECG in ICU demonstrates sinus rhythm, IVCD noted, no acute ST or T-wave changes.) Consult Discharge Plan - Plan Additional Instructions: Follow up in wound care clinic with Dr. Garcia on . Please have nurse make an appointment prior to leaving hospital. Referrals: Brannon Garcia DPM [Partnered Physician] - Maranda Kincaid, AUCTION CLERK [Advanced Practice Nurse] - 08/07/18 9:00 am Chris Garcia DO [Primary Care Provider] - Prescriptions: RX: OxyCODONE/APAP 10/325 [Percocet 10/325 MG] 1 each PO Q8HR PRN 3 Days #9 tablet PRN Reason: Severe Pain cefTRIAXone [Rocephin] 2,000 mg IJ DAILY 42 Days #42 vial Vancomycin HCl in Dextrose 5 % [Vancomycin-D5w 1.25 Gram/250Ml] 1.25 gm IV DAILY 42 Days #42 mls
[2018-07-23] MEDS ORDERED: Piperacillin/Tazobactam 3.375 GM in 0.9 % Sodium Chloride Mini Bag 100 ML IVPB SCH (18:00)
[2018-07-23 18:05] LABS: Alanine Aminotransferase 55 Units/L (7-52); Albumin 2.6 g/dL (3.5-5.7); Albumin/Globulin Ratio 0.7 (1.1-2.2); Alkaline Phosphatase 159 Units/L (34-104); Aspartate Amino Transferase 108 Units/L (13-39); BUN/Creatinine Ratio 18 (6-26); Bilirubin,Total 0.3 mg/dL (0.3-1.0); Blood Urea Nitrogen 22 mg/dL (8-23); Calcium 11.8 mg/dL (8.6-10.3); Carbon Dioxide 17 mEq/L (23-29); Chloride 113 mEq/L (98-107); Globulin 3.6 g/dL (2.4-3.5); Glucose 142 mg/dL (70-105); Magnesium 2.5 mg/dL (1.6-2.6); Osmolality,Calculated 306 (280-300); Potassium 5.1 mEq/L (3.5-5.1); Sodium 145 mEq/L (136-145); Total Protein 6.2 g/dL (6.4-8.9); eGFR For Non-African Americans 58 (> 60)
--- NOTE | 2018-07-23 18:31 | Event Note ---
Date of Encounter: 07/23/18 Time of Encounter: 14:30 Jose de la cruz was called around 16:10 this afternoon. Patient was found to have asystolic rhytm and needed chest compression. All rhythms were asystolic. patient received 5 round of epinephrine. Patient was intubated by RT. Stat labs were drawn. He had another cardiac arrest with asystolic rhythm in elevator. He received 1 amp of bicarb and calcium chloride during 1st cardiac arrest. He was transferred to ICU and started on mechanical ventilation. ABG showed respiratory acidosis and mechanical ventilation was adjusted. CXR showed ET tube in place and pulmonary edema. Labs showed lactic acid >10, troponin of 0.09 , wbc of 13.5, Hb of 8.8. Patient was also loaded with 150 amiodarone and started on amiodarone drip. Patient had nausea and vomiting before the cardiac arrest event. He had significant gastric contents aspirated from the ET tube in ICU. Cardiology was consulted for possible cardiac event with EKG showing IVCD and afib. Cardiology performed bedside echo with no significant wall motion abnormality. He had to be started on Levophed which is being titrated to maintain MAP of 65. Patient is currently not sedated. He has mid-dilated fixed pupil. No response to painful stimulus, no corneal reflex. Family was updated during the entire events and desires patient to be transferred to [facility]. Will arrange for transfer once bed available at [facility] and relatively stable.
[2018-07-23 18:41] LABS: ABG Base Excess -10 mEq/L (-2 to 3); ABG HCO3 18 mEq/L (21-27); ABG Oxygen Saturation 100 % (95-98); ABG PCO2 45 mmHg (35-45); ABG PH 7.21 pH Units (7.32-7.45); ABG PO2 454 mmHg (85-104); ABG TCO2 19 mEq/L (20-26); Blood Gas Modality ASSIST CONTROL; Blood Gas PEEP 10 cm H2O; Blood Gas Respiration Rate 18; Blood Gas VT 600 cc
[2018-07-23 19:10] VITALS: BP 140/78
--- NOTE | 2018-07-23 19:14 | Event Note ---
Date of Encounter: 07/23/18 Time of Encounter: 16:20 Jose de la cruz was called and ICU team went to the jose de la cruz. When I arrived ACLS was going on and hospitalist was running the code. Patient has received Epinephrine per ACLS protocol and CPR was in progress. Patient has been treated for sepsis and he was reported to have aspiration. I have supervised personally respiratory therapist intubate patient successfully with color change and bilateral ausculatation. Patient had BP and pulse and wide ARS complex and irregular. He was treated with Amiodarone and quickly transferred to ICU. When he arrived he had another event and was treated with epinephrine and he was placed on the vent. I have increased the PEEP to 12 because of the hypoxia and I reviewed CXR personally with evidence of vascular congestion. I decreased PEEP 10 and FIO2 100%. Measured his high to place him on 6 ml/IBW for TV and ECG was done then cardiology consultation was done. Patient had lab with severe combined metabolic acidosis which was treated with bicarbonate IV push then drip and respiratory acidosis that was treated with vent change. Patient remain unstable and blood cultures were done and antibiotics to be continued. This was co-managed with the hospitalist at the bedside Family has been updated. Will resume the care tomorrow in ICU if patient stay in [place] ICU. Critical care performed: Time is exclusive of separately billable procedures. Time includes: direct patient care, patient reassessment, coordination of patient care, interpretation of data (laboratory data, radiology data, and respiratory data), review of patient's medical records, medical consultation and documentation of patient care. Procedures excluded from critical care time: 40 minutes.
--- NOTE | 2018-07-23 19:28 | Event Note ---
Date of Encounter: 07/23/18 Time of Encounter: 19:16 Transfer to [facility] has been arranged. Patient would be flown to [facility] ICU. Discussed with family. Patient is non responsive. He is not on sedation. Vitals 110 sinus rhythm 140/78 On mechanical ventilatio- Peep 10, RR 18, fio2 100, 600 TV Exam. CVS: Tachycardic, No MRG, S1 S2 normal. RS: rales present bilaterally. air entry equal bilaterally Abdomen: Soft. No peritoneal signs Ext:Rt foot with dressing. Mild feet swelling Neuro: Intubated. not sedated. Mild gag reflex present, but no purposeful movement, no corneal or pupillary response Plan - Cardiac arrest likely respiratory in nature- f/u ABG - May benefit from hypothermia protocol. Currently being transferred to [facility]. Family wants to discuss with [facility] physician before starting. - c/w amiodarone and bicarbonate drip. - Now off Levophed drip. BP stable. - CT chest with pulmonary edema and b/l lower lobe opacity likely from aspiration. CT head unremarkbale. CT abdomen unremarkable. - C/w Vancomycin and Zosyn. - f/u repeate lactate, ABG, BMP, Troponin in 3 hrs.
[2018-07-23] MEDS ORDERED: *HR* Norepinephrine 4 MG/4 ML VIAL IVC ONE (19:29)
[2018-07-23] MEDS ORDERED: *HR* EPINEPHrine 1 MG/10 ML SYRINGE IVP ONE (19:29)
[2018-07-23] MEDS ORDERED: *HR* Amiodarone 150 MG/3 ML VIAL IVPB ONE ×2 (19:29)
[2018-07-23] MEDS ORDERED: Aminoglycoside Consult 1 EACH MC ONE (19:29)
[2018-07-23] MEDS ORDERED: *HR* Amiodarone Premix 360 MG/200 ML BAG IVC ONE (19:29)
[2018-07-23] MEDS ORDERED: Insulin LISPRO 300 UNITS/3 ML VIAL SQ SCH (20:00)
--- NOTE | 2018-07-24 13:47 | Electrocardiograph Report ---
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
--- NOTE | 2018-07-24 16:04 | Electrocardiograph Report ---
[address] [address] Test Date: 2018-07-23 Pat Name: Trish Lagunas Department: 112 Room: 02 Gender: M Ent Nurse: CHANDAN : 1940 Requested By: Kumar Goodrich Order Number: [id number] Reading MD: Nilda Harry Measurements Intervals [place] Rate: 126 P: [place]: 0 QRS: 113 QRSD: 253 T: 120 QT: 338 QTc: 413 Interpretive Statements ATRIAL FIBRILLATION WITH RAPID VENTRICULAR RESPONSE INTRAVENTRICULAR CONDUCTION DELAY Electronically Signed On 07-24-2018 16:03:05 EDT by Nilda Harry
--- NOTE | 2018-07-30 21:39 | Electrocardiograph Report ---
[address] [address] Test Date: 2018-07-17 Pat Name: Trish Lagunas Department: [id number] Room: [facility] Gender: Stem Crusher: : 1940 Requested By: Simon Villalpando Order Number: [id number] Reading MD: Kashmir Weinstein Measurements Intervals [place] Rate: 61 P: 73 AR: 173 QRS: 46 QRSD: 95 T: 57 QT: 450 QTc: 454 Interpretive Statements Sinus rhythm Atrial premature complexes Abnormal R-wave progression, early transition Electronically Signed On 07-30-2018 21:38:27 EDT by Kashmir Weinstein
== END 2018-07-23 19:30 | disposition short-term general hospital (02) | DRG 616 ==
LOC: SUATTDRO → EMEROOARM 11:53 → SUATTDRO 16:21 → 3NENU 16:21 → ICNU 07-23 16:37
PROVIDERS: ADMIT Internal Medicine; ATTEND Internal Medicine